=== PATIENT | female | born 1945 | race Caucasian/White ===

== ENCOUNTER → 2017-10-02 07:49 | Outpatient (CLI) | payer MEDICARE, OTHER, SELFPAY ==
--- NOTE | 2017-10-02 10:57 | NEURO ---
NCS and/or EMG Patient Report Ordering Doctor: Subha Patrick DATE OF SERVICE: 10/02/17 This is a bilateral lower extremity nerve conduction study performed on this 72-year-old female with a history of diabetes which she says is currently well controlled. She has had symptoms in her feet bilaterally for 4 years described as swelling and numbness on the soles of her feet with abnormal sensations on the balls of her feet. On examination she has mild edema as well as triple erythematous patches on her skin bilaterally in her lower extremities. Bilateral lower extremity sensory and motor nerve conduction study is performed. The sural sensory responses are relatively normal however all of the motor responses show severe reduction in conduction velocities, reduction in amplitude and prolonged distal latencies. Tibial and common peroneal F waves are prolonged bilaterally and H reflex response amplitude is reduced bilaterally consistent with peripheral neuropathy. Impression this is an abnormal nerve conduction study of the bilateral lower extremities consistent with severe peripheral neuropathy likely due to the patient's diabetes. Due to the patient's skin issues, EMG testing was deferred due to risk of infection.
--- NOTE | 2017-10-02 11:00 | NEURO_ITS ---
NCS and/or EMG Patient Report Ordering Doctor: Subha Patrick DATE OF SERVICE: 10/02/17 This is a bilateral lower extremity nerve conduction study performed on this 72- year-old female with a history of diabetes which she says is currently well controlled. She has had symptoms in her feet bilaterally for 4 years described as swelling and numbness on the soles of her feet with abnormal sensations on the balls of her feet. On examination she has mild edema as well as triple erythematous patches on her skin bilaterally in her lower extremities. Bilateral lower extremity sensory and motor nerve conduction study is performed. The sural sensory responses are relatively normal however all of the motor responses show severe reduction in conduction velocities, reduction in amplitude and prolonged distal latencies. Tibial and common peroneal F waves are prolonged bilaterally and H reflex response amplitude is reduced bilaterally consistent with peripheral neuropathy. Impression this is an abnormal nerve conduction study of the bilateral lower extremities consistent with severe peripheral neuropathy likely due to the patient's diabetes. Due to the patient's skin issues, EMG testing was deferred due to risk of infection.
== END ==
PROVIDERS: Family Provider Family Medicine Geriatric Medicine; PCP Family Medicine Geriatric Medicine; Visit Provider Podiatrist
DX: E11.40 Type 2 diabetes mellitus with diabetic neuropathy, unspecified (principal); M54.10 Radiculopathy, site unspecified
CPT/HCPCS: 95911

== ENCOUNTER → 2017-10-11 09:06 | Outpatient (CLI) | payer MEDICARE, OTHER, SELFPAY ==
[2017-10-11 12:31] LABS: Absolute Lymphocyte Count 1.41 X10^3/ul (0.83-4.51); Absolute Neutrophil Count 4.4 X10^3/uL (2.0-7.7); Basophil# 0.03 X10^3/uL; Basophil% 0.5 % (0-1); Eosinophil# 0.07 X10^3/uL; Eosinophils% 1.1 % (0-5); Hematocrit 38.3 % (37-47); Hemoglobin 12.4 g/dl (12.0-15.0); Lymphocyte # 1.41 X10^3/ul (4.0); Lymphocyte % 22.4 % (19-41); Mean Corp Hgb Conc 32.4 g/gl (32-36); Mean Corpuscular Hgb 27.3 pg (27.0-32.0); Mean Corpuscular Volume 84.2 fL (81-99); Mean Platelet Vol. 9.5 fl (6.2-12.0); Monocyte# 0.37 X10^3/uL; Monocyte% 5.9 % (0-10); Neutrophil % 69.9 % (47-70); Platelet Count 269 K/mm3 (150-450); RBC Distribution Width CV 14.9 % (11.6-14.6); RBC Distribution Width SD 44.6 fl (35.1-43.9); Red Blood Count 4.55 M/mm3 (4.2-5.4); White Blood Count 6.3 K/mm3 (4.4-11.0)
[2017-10-11 12:37] LABS: POSITIVE COUNT NO; POSITIVE DIFFERENTIAL NO; POSITIVE MORPHOLOGY NO
[2017-10-11 12:57] LABS: AST(SGOT) 15 U/L (15-37); Alanine Aminotransfer ALT/SGPT 16 U/L (13-56); Albumin, Serum 3.3 g/dL (3.2-5.0); Alkaline Phosphatase 97 U/L (45-117); Anion Gap 8 (5-15); BUN 14 mg/dL (7-18); Calcium,Total 8.7 mg/dL (8.5-10.1); Chloride 109 mmol/L (98-107); Creatinine, Serum 1.08 mg/dL (0.55-1.02); EST Glomerular Filtration Rate 53 mL/min (>60); Est Glom Filt Rate - Afr Amer 64 mL/min (>60); Globulin 3.4 g/dL (2.2-4.2); Glucose 119 mg/dL (74-106); Potassium 4.3 mmol/L (3.5-5.1); Protein, Total 6.7 g/dL (6.4-8.2); Sodium Level 142 mmol/L (136-145); Thyroid Stim Hormone (TSH) 0.96 uIU/mL (0.358-3.74)
[2017-10-12 09:41] LABS: Vitamin D,25 Hydroxy 31.8 ng/mL (29.95-100.01)
== END ==
PROVIDERS: Family Provider Family Medicine Geriatric Medicine; PCP Family Medicine Geriatric Medicine; Visit Provider Family Medicine Geriatric Medicine
DX: I10 Essential (primary) hypertension (principal); E55.9 Vitamin D deficiency, unspecified; E11.9 Type 2 diabetes mellitus without complications
CPT/HCPCS: 36415; 80053; 82306; 84443; 85025

== ENCOUNTER → 2017-11-20 10:07 | Outpatient (CLI) | payer MEDICARE, OTHER, SELFPAY ==
--- NOTE | 2017-11-20 10:14 | BD_ITS ---
STUDY: DUAL ENERGY X-RAY ABSORPTIOMETRY / DXA REASON FOR EXAM: Female, 72 years old. The patient is postmenopausal. Loss of height. TECHNIQUE: Bone Mineral Density (BMD) measurements of lumbar spine and bilateral hips were obtained. COMPARISON: Comparison is made with prior study dated August 16, 2006. FINDINGS: Lumbar Spine (L1-L4): g/cm2 (1.467) / T-score (2.4) / Z-score (4.1) Findings are suggestive of normal bone density with a low fracture risk. Left Femur Total: g/cm2 (0.893) / T-score (-0.9) / Z-score (0.6) Left Femoral Neck: g/cm2 (0.758) / T-score (-2.0) / Z-score (-0.3) Right Femur Total: g/cm2 (0.936) / T-score (-0.6) / Z-score (1.0) Right Femoral Neck: g/cm2 (0.783) / T-score (-1.8) / Z-score (-0.1) The T-Scores on the most recent prior examination were: Lumbar Spine (L1-L4): There has been improvement of bone density since the previous examination. Left Femur Total: which represents an improvement of 2.6%. Right Femur Total: which represents a worsening of 1.1%. BD/Dexa Bone Density Study IMPRESSION: The patient is considered osteopenic as outlined below according to World David Organization (WHO) criteria with a moderate fracture risk. There has been improvement of bone density since the previous examination. Reference Information: The T-score is the number of standard deviations above or below the standard which is normal for young adults at their peak bone mineral density. The World Health Organization (WHO) interprets the T-scores as follows: Above -1 Normal bone density Between -1 and -2.5 Osteopenia Equal to / or below -2.5 Osteoporosis As a practical clinical guideline, osteopenia may be graded as follows: Mild -1 through -1.5 Moderate -1.6 through -2.0 Severe -2.1 through -2.4 The Z-score is the number of standard deviations above or below age-matched controls. A Z-score of less than -1.5 would be considered abnormal. References: 1. NIH Osteoporosis and Related Bone Diseases http://www.osteo.org 2. International Society for Clinical Densitometry http://www.iscd.org 3. National Osteoporosis Foundation http://www.nof.org Electronically Signed: Akira Barth MD at 15:11 EDT Tel [phone], Service support ,
== END ==
PROVIDERS: Family Provider Family Medicine Geriatric Medicine; PCP Family Medicine Geriatric Medicine; Visit Provider Obstetrics & Gynecology
DX: M81.0 Age-related osteoporosis without current pathological fracture (principal)
CPT/HCPCS: 77080

== ENCOUNTER → 2017-12-03 09:15 | Outpatient (CLI) | payer MEDICARE, OTHER, SELFPAY ==
--- NOTE | 2017-12-03 09:15 | DT_ITS ---
This patient was seen during an EMR downtime December 03, 2017 - December 10, 2017. This patient may have a combination of paper and electronic documentation or all paper documentation. All documentation is viewable within the e-chart portion of [employer] for each patient visit.
--- NOTE | 2017-12-03 09:40 | BI_ITS ---
MAMMOGRAPHY - BILATERAL SCREENING REASON FOR EXAM: Female, 72 years old. Routine annual screening examination. PERTINENT HISTORY: NO FAM HX LT BREAST BX 20+YRS AGO TECHNIQUE: Digital bilateral breast shyann (3D mammographic acquisition) in the CC and MLO projections. 2-D mediolateral oblique (MLO) and craniocaudad (CC) views of both breasts were obtained. CAD: Full Field Digital Mammography with Computer Added Detection was performed. COMPARISON: 11/02/2016 and 05/26/2015 FINDINGS: Breast Composition: The breasts are heterogeneously dense, which may obscure small masses. There are no dominant masses or suspicious calcifications. No other significant abnormalities are identified. BI/SCREENING MAMM (CAD), BILAT IMPRESSION: Stable bilateral screening mammogram. Yearly follow-up mammogram recommended. (A) ASSESSMENT CATEGORY: BIRADS Category 2: Benign. A letter regarding these results will be sent to the patient by the facility within 30 days. Approximately 10% of breast cancers are not detected by mammography. A normal mammogram should not delay biopsy of a clinically suspicious abnormality. [id number] Electronically Signed: César Rubio MD at 13:05 EDT Tel , Service support ,
== END ==
PROVIDERS: Family Provider Family Medicine Geriatric Medicine; PCP Family Medicine Geriatric Medicine; Visit Provider Obstetrics & Gynecology
DX: Z12.31 Encounter for screening mammogram for malignant neoplasm of breast (principal); M81.0 Age-related osteoporosis without current pathological fracture
CPT/HCPCS: 77063; 77067

== ENCOUNTER → 2018-05-15 09:11 | Outpatient (CLI) | payer MEDICARE, OTHER, SELFPAY ==
[2018-05-15 12:44] LABS: Absolute Lymphocyte Count 1.21 X10^3/ul (0.83-4.51); Absolute Neutrophil Count 5.2 X10^3/uL (2.0-7.7); Basophil# 0.02 X10^3/uL; Basophil% 0.3 % (0-1); Eosinophil# 0.04 X10^3/uL; Eosinophils% 0.6 % (0-5); Hematocrit 38.6 % (37-47); Hemoglobin 12.3 g/dl (12.0-15.0); Lymphocyte # 1.21 X10^3/ul (4.0); Lymphocyte % 17.8 % (19-41); Mean Corp Hgb Conc 31.9 g/gl (32-36); Mean Corpuscular Hgb 26.3 pg (27.0-32.0); Mean Corpuscular Volume 82.7 fL (81-99); Mean Platelet Vol. 9.6 fl (6.2-12.0); Monocyte# 0.36 X10^3/uL; Monocyte% 5.3 % (0-10); Neutrophil # 5.16 X10^3/uL (2.7-7.7); Neutrophil % 75.9 % (47-70); Platelet Count 275 K/mm3 (150-450); RBC Distribution Width CV 14.8 % (11.6-14.6); RBC Distribution Width SD 44.1 fl (35.1-43.9); Red Blood Count 4.67 M/mm3 (4.2-5.4); White Blood Count 6.8 K/mm3 (4.4-11.0)
[2018-05-15 12:51] LABS: POSITIVE COUNT NO; POSITIVE DIFFERENTIAL NO; POSITIVE MORPHOLOGY NO
[2018-05-15 12:56] LABS: Vitamin D,25 Hydroxy 27.4 ng/mL (29.95-100.01)
[2018-05-15 13:09] LABS: ALB/GLOB Ratio 0.9 RATIO (0.9-2.4); AST(SGOT) 15 U/L (15-37); Alanine Aminotransfer ALT/SGPT 20 U/L (13-56); Albumin, Serum 3.3 g/dL (3.2-5.0); Alkaline Phosphatase 125 U/L (45-117); Anion Gap 11 (5-15); BUN 14 mg/dL (7-18); Chloride 105 mmol/L (98-107); Creatinine, Serum 1.08 mg/dL (0.55-1.02); EST Glomerular Filtration Rate 53 mL/min (>60); Est Glom Filt Rate - Afr Amer 64 mL/min (>60); Globulin 3.8 g/dL (2.2-4.2); Glucose 191 mg/dL (74-106); Potassium 4.1 mmol/L (3.5-5.1); Protein, Total 7.1 g/dL (6.4-8.2); Sodium Level 140 mmol/L (136-145); Thyroid Stim Hormone (TSH) 1.68 uIU/mL (0.358-3.74)
== END ==
PROVIDERS: Family Provider Family Medicine Geriatric Medicine; PCP Family Medicine Geriatric Medicine; Visit Provider Family Medicine Geriatric Medicine
DX: E11.9 Type 2 diabetes mellitus without complications (principal); E55.9 Vitamin D deficiency, unspecified; I10 Essential (primary) hypertension
CPT/HCPCS: 36415; 80053; 82306; 84443; 85025

== ENCOUNTER → 2018-11-13 | Outpatient (CLI) | payer MEDICARE, OTHER, SELFPAY ==
[2018-11-13 13:32] LABS: Absolute Lymphocyte Count 1.13 X10^3/ul (0.83-4.51); Absolute Neutrophil Count 4.6 X10^3/uL (2.0-7.7); Basophil# 0.02 X10^3/uL; Basophil% 0.3 % (0-1); Eosinophil# 0.06 X10^3/uL; Hematocrit 38.7 % (37-47); Hemoglobin 12.5 g/dl (12.0-15.0); Lymphocyte # 1.13 X10^3/ul (4.0); Lymphocyte % 18.3 % (19-41); Mean Corp Hgb Conc 32.3 g/gl (32-36); Mean Corpuscular Hgb 26.9 pg (27.0-32.0); Mean Corpuscular Volume 83.2 fL (81-99); Mean Platelet Vol. 9.7 fl (6.2-12.0); Monocyte# 0.35 X10^3/uL; Monocyte% 5.7 % (0-10); Neutrophil % 74.4 % (47-70); POSITIVE COUNT NO; POSITIVE DIFFERENTIAL NO; POSITIVE MORPHOLOGY NO; Platelet Count 284 K/mm3 (150-450); RBC Distribution Width CV 14.5 % (11.6-14.6); RBC Distribution Width SD 43.3 fl (35.1-43.9); Red Blood Count 4.65 M/mm3 (4.2-5.4); White Blood Count 6.2 K/mm3 (4.4-11.0)
[2018-11-13 13:57] LABS: ALB/GLOB Ratio 0.9 RATIO (0.9-2.4); AST(SGOT) 14 U/L (15-37); Alanine Aminotransfer ALT/SGPT 18 U/L (13-56); Albumin, Serum 3.3 g/dL (3.2-5.0); Alkaline Phosphatase 106 U/L (45-117); Anion Gap 7 (5-15); BUN 16 mg/dL (7-18); Calcium,Total 8.3 mg/dL (8.5-10.1); Chloride 107 mmol/L (98-107); Creatinine, Serum 1.07 mg/dL (0.55-1.02); EST Glomerular Filtration Rate 54 mL/min (>60); Est Glom Filt Rate - Afr Amer 65 mL/min (>60); Globulin 3.5 g/dL (2.2-4.2); Glucose 208 mg/dL (74-106); Potassium 4.2 mmol/L (3.5-5.1); Protein, Total 6.8 g/dL (6.4-8.2); Sodium Level 137 mmol/L (136-145); Thyroid Stim Hormone (TSH) 0.99 uIU/mL (0.358-3.74)
== END | disposition home or self-care (01) ==
LOC: POLAB3 12:04
PROVIDERS: Family Provider Family Medicine Geriatric Medicine; PCP Family Medicine Geriatric Medicine; Visit Provider Family Medicine Geriatric Medicine
DX: E11.9 Type 2 diabetes mellitus without complications (principal); E55.9 Vitamin D deficiency, unspecified; I10 Essential (primary) hypertension
CPT/HCPCS: 36415; 80053; 82306; 84443; 85025

== ENCOUNTER → 2019-05-19 | Outpatient (CLI) | payer MEDICARE, OTHER, SELFPAY ==
[2019-05-19 10:15] LABS: Absolute Lymphocyte Count 1.14 X10^3/uL (0.83-4.51); Absolute Neutrophil Count 4.7 X10^3/uL (2.0-7.7); Basophil# 0.04 X10^3/uL; Basophil% 0.6 % (0-1); Eosinophil# 0.05 X10^3/uL; Eosinophils% 0.8 % (0-5); Hematocrit 37.7 % (37-47); Hemoglobin 12.1 g/dL (12.0-15.0); Lymphocyte # 1.14 X10^3/ul (4.0); Lymphocyte % 18.4 % (19-41); Mean Corp Hgb Conc 32.1 g/dL (32-36); Mean Corpuscular Hgb 26.8 pg (27.0-32.0); Mean Corpuscular Volume 83.6 fL (81-99); Mean Platelet Vol. 9.4 fl (6.2-12.0); Monocyte# 0.28 X10^3/uL; Monocyte% 4.5 % (0-10); NRBC Flagged by Analyzer 0 % (0-5); Neutrophil # 4.69 X10^3/uL (2.7-7.7); Neutrophil % 75.5 % (47-70); Platelet Count 269 K/mm3 (150-450); RBC Distribution Width CV 13.9 % (11.6-14.6); RBC Distribution Width SD 42.6 fl (35.1-43.9); Red Blood Count 4.51 M/mm3 (4.2-5.4); White Blood Count 6.2 K/mm3 (4.4-11.0)
[2019-05-19 10:37] LABS: ALB/GLOB Ratio 0.9 RATIO (0.9-2.4); AST(SGOT) 14 U/L (15-37); Alanine Aminotransfer ALT/SGPT 13 U/L (13-56); Albumin, Serum 3.4 g/dL (3.2-5.0); Alkaline Phosphatase 120 U/L (45-117); Anion Gap 9 (5-15); BUN 15 mg/dL (7-18); BUN/Creat Ratio 13.4 RATIO (10-20); Calcium,Total 8.9 mg/dL (8.5-10.1); Chloride 106 mmol/L (98-107); Creatinine, Serum 1.12 mg/dL (0.55-1.02); EST Glomerular Filtration Rate 51 mL/min (>60); Est Glom Filt Rate - Afr Amer 61 mL/min (>60); Globulin 3.8 g/dL (2.2-4.2); Glucose 165 mg/dL (74-106); Potassium 3.7 mmol/L (3.5-5.1); Protein, Total 7.2 g/dL (6.4-8.2); Sodium Level 140 mmol/L (136-145); Thyroid Stim Hormone (TSH) 1.85 uIU/mL (0.358-3.74)
[2019-05-19 10:52] LABS: Vitamin D,25 Hydroxy 40.8 ng/mL (29.95-100.01)
== END | disposition home or self-care (01) ==
LOC: POLAB3 09:13
PROVIDERS: Family Provider Family Medicine Geriatric Medicine; PCP Family Medicine Geriatric Medicine; Visit Provider Family Medicine Geriatric Medicine
DX: E11.9 Type 2 diabetes mellitus without complications (principal); E55.9 Vitamin D deficiency, unspecified; I10 Essential (primary) hypertension
CPT/HCPCS: 36415; 80053; 82306; 84443; 85025

== ENCOUNTER → 2019-11-19 09:18 | Outpatient (CLI) | payer MEDICARE, OTHER, SELFPAY ==
[2019-11-19 12:43] LABS: Absolute Neutrophil Count 4.7 X10^3/uL (2.0-7.7); Basophil# 0.04 X10^3/uL; Basophil% 0.6 % (0-1); Eosinophil# 0.06 X10^3/uL; Eosinophils% 0.9 % (0-5); Hematocrit 38.6 % (37-47); Mean Corp Hgb Conc 31.1 g/dL (32-36); Mean Corpuscular Hgb 25.9 pg (27.0-32.0); Mean Corpuscular Volume 83.4 fL (81-99); Mean Platelet Vol. 9.4 fl (6.2-12.0); Monocyte# 0.34 X10^3/uL; Monocyte% 5.2 % (0-10); NRBC Flagged by Analyzer 0 % (0-5); Neutrophil # 4.74 X10^3/uL (2.7-7.7); Neutrophil % 73.1 % (47-70); Platelet Count 272 K/mm3 (150-450); RBC Distribution Width CV 15.1 % (11.6-14.6); RBC Distribution Width SD 45.8 fl (35.1-43.9); Red Blood Count 4.63 M/mm3 (4.2-5.4); White Blood Count 6.5 K/mm3 (4.4-11.0)
[2019-11-19 12:55] LABS: Vitamin D,25 Hydroxy 27.2 ng/mL
[2019-11-19 13:14] LABS: ALB/GLOB Ratio 0.9 RATIO (0.9-2.4); AST(SGOT) 18 U/L (15-37); Alanine Aminotransfer ALT/SGPT 17 U/L (13-56); Albumin, Serum 3.3 g/dL (3.2-5.0); Alkaline Phosphatase 117 U/L (45-117); Anion Gap 8 (5-15); BUN 16 mg/dL (7-18); BUN/Creat Ratio 14.4 RATIO (10-20); Chloride 108 mmol/L (98-107); Creatinine, Serum 1.11 mg/dL (0.55-1.02); EST Glomerular Filtration Rate 51 mL/min (>60); Est Glom Filt Rate - Afr Amer 62 mL/min (>60); Globulin 3.7 g/dL (2.2-4.2); Glucose 153 mg/dL (74-106); Potassium 3.9 mmol/L (3.5-5.1); Sodium Level 140 mmol/L (136-145); Thyroid Stim Hormone (TSH) 1.92 uIU/mL (0.358-3.74)
== END ==
PROVIDERS: PCP Family Medicine Geriatric Medicine; Visit Provider Family Medicine Geriatric Medicine
DX: E11.9 Type 2 diabetes mellitus without complications (principal); E55.9 Vitamin D deficiency, unspecified; I10 Essential (primary) hypertension
CPT/HCPCS: 36415; 80053; 82306; 84443; 85025

== ENCOUNTER → 2020-02-24 | Outpatient (CLI) | payer MEDICARE, OTHER, SELFPAY ==
--- NOTE | 2020-02-24 10:06 | BI_ITS ---
MAMMOGRAPHY - BILATERAL SCREENING REASON FOR EXAM: Female, 74 years old. Routine annual screening examination. PERTINENT HISTORY: Grandmother with breast cancer. Remote left breast biopsy. TECHNIQUE: Digital bilateral breast carole (3D mammographic acquisition) in the CC and MLO projections. 2-D mediolateral oblique (MLO) and craniocaudad (CC) views of both breasts were obtained. CAD: Full Field Digital Mammography with Computer Added Detection was performed. COMPARISON: Comparison is made with prior examination dated 12/03/2017 and 11/02/2016. FINDINGS: Breast Composition: The breasts are heterogeneously dense, which may obscure small masses. There are no dominant masses or suspicious calcifications. Stable small benign-appearing bilateral axillary lymph nodes. No other significant abnormalities are identified. There has been no significant change since the prior study. BI/SCREEN MAMM (CAD) W/CAROLE BILAT IMPRESSION: Stable bilateral screening mammogram. Yearly follow-up mammogram recommended. (A) ASSESSMENT CATEGORY: BIRADS Category 2: Benign. A letter regarding these results will be sent to the patient by the facility within 30 days. Approximately 10% of breast cancers are not detected by mammography. A normal mammogram should not delay biopsy of a clinically suspicious abnormality. [id number] Electronically Signed: Akira Barth, at 12:15 EDT , Service support ,
== END | disposition home or self-care (01) ==
LOC: OPBI 10:04
PROVIDERS: PCP Family Medicine Geriatric Medicine; Referring Provider Obstetrics & Gynecology; Visit Provider Obstetrics & Gynecology
DX: Z12.31 Encounter for screening mammogram for malignant neoplasm of breast (principal)
CPT/HCPCS: 77063; 77067

== ENCOUNTER → 2020-05-20 09:39 | Outpatient (CLI) | payer MEDICARE, OTHER, SELFPAY ==
[2020-03-30 14:44] VITALS: BMI 33.2
[2020-05-20 12:40] LABS: Basophil# 0.05 X10^3/uL; Basophil% 0.7 % (0-1); Eosinophil# 0.09 X10^3/uL; Eosinophils% 1.3 % (0-5); Hemoglobin 12.1 g/dL (12.0-15.0); Mean Corpuscular Hgb 25.7 pg (27.0-32.0); Mean Platelet Vol. 9.2 fl (6.2-12.0); Monocyte# 0.36 X10^3/uL; Monocyte% 5.3 % (0-10); NRBC Flagged by Analyzer 0 % (0-5); Neutrophil # 5.01 X10^3/uL (2.7-7.7); Neutrophil % 73.4 % (47-70); Platelet Count 297 K/mm3 (150-450); RBC Distribution Width CV 14.7 % (11.6-14.6); RBC Distribution Width SD 44.2 fl (35.1-43.9); White Blood Count 6.8 K/mm3 (4.4-11.0)
[2020-05-20 13:00] LABS: Vitamin D,25 Hydroxy 24.5 ng/mL
[2020-05-20 13:11] LABS: ALB/GLOB Ratio 0.9 RATIO (0.9-2.4); AST(SGOT) 11 U/L (15-37); Alanine Aminotransfer ALT/SGPT 17 U/L (13-56); Albumin, Serum 3.5 g/dL (3.2-5.0); Alkaline Phosphatase 95 U/L (45-117); Anion Gap 7 (5-15); BUN 25 mg/dL (7-18); BUN/Creat Ratio 21.9 RATIO (10-20); Chloride 109 mmol/L (98-107); Creatinine, Serum 1.14 mg/dL (0.55-1.02); EST Glomerular Filtration Rate 50 mL/min (>60); Est Glom Filt Rate - Afr Amer 60 mL/min (>60); Globulin 3.8 g/dL (2.2-4.2); Glucose 134 mg/dL (74-106); Protein, Total 7.3 g/dL (6.4-8.2); Sodium Level 139 mmol/L (136-145); Thyroid Stim Hormone (TSH) 1.53 uIU/mL (0.358-3.74)
== END ==
PROVIDERS: PCP Family Medicine Geriatric Medicine; Visit Provider Family Medicine Geriatric Medicine
DX: E11.9 Type 2 diabetes mellitus without complications (principal); E55.9 Vitamin D deficiency, unspecified; I10 Essential (primary) hypertension
CPT/HCPCS: 36415; 80053; 82306; 84443; 85025

== ENCOUNTER → 2020-11-18 09:47 | Outpatient (CLI) | payer MEDICARE, OTHER, SELFPAY ==
[2020-03-30 14:44] VITALS: BMI 33.2
[2020-11-18 12:33] LABS: Absolute Lymphocyte Count 1.32 X10^3/uL (0.83-4.51); Absolute Neutrophil Count 5.2 X10^3/uL (2.0-7.7); Basophil# 0.04 X10^3/uL; Basophil% 0.6 % (0-1); Eosinophil# 0.14 X10^3/uL; Hematocrit 38.4 % (37-47); Hemoglobin 11.8 g/dL (12.0-15.0); Lymphocyte # 1.32 X10^3/ul (0.83-4.51); Lymphocyte % 18.7 % (19-41); Mean Corp Hgb Conc 30.7 g/dL (32-36); Mean Corpuscular Hgb 25.1 pg (27.0-32.0); Mean Corpuscular Volume 81.5 fL (81-99); Mean Platelet Vol. 9.3 fl (6.2-12.0); Monocyte% 4.3 % (0-10); NRBC Flagged by Analyzer 0 % (0-5); Neutrophil # 5.23 X10^3/uL (2.7-7.7); Neutrophil % 74.1 % (47-70); Platelet Count 277 K/mm3 (150-450); RBC Distribution Width SD 41.2 fl (35.1-43.9); Red Blood Count 4.71 M/mm3 (4.2-5.4); White Blood Count 7.1 K/mm3 (4.4-11.0)
[2020-11-18 12:49] LABS: Vitamin D,25 Hydroxy 37.5 ng/mL
[2020-11-18 13:01] LABS: ALB/GLOB Ratio 0.9 RATIO (0.9-2.4); AST(SGOT) 17 U/L (15-37); Alanine Aminotransfer ALT/SGPT 18 U/L (13-56); Albumin, Serum 3.5 g/dL (3.2-5.0); Alkaline Phosphatase 97 U/L (45-117); Anion Gap 8 (5-15); BUN 23 mg/dL (7-18); BUN/Creat Ratio 19.7 RATIO (10-20); Calcium,Total 9.1 mg/dL (8.5-10.1); Chloride 105 mmol/L (98-107); Creatinine, Serum 1.17 mg/dL (0.55-1.02); EST Glomerular Filtration Rate 48 mL/min (>60); Est Glom Filt Rate - Afr Amer 58 mL/min (>60); Globulin 3.8 g/dL (2.2-4.2); Glucose 178 mg/dL (74-106); Potassium 4.1 mmol/L (3.5-5.1); Protein, Total 7.3 g/dL (6.4-8.2); Sodium Level 138 mmol/L (136-145); Thyroid Stim Hormone (TSH) 1.42 uIU/mL (0.358-3.74)
== END ==
PROVIDERS: PCP Family Medicine Geriatric Medicine; Visit Provider Family Medicine Geriatric Medicine
DX: E11.9 Type 2 diabetes mellitus without complications (principal); E55.9 Vitamin D deficiency, unspecified; I10 Essential (primary) hypertension
CPT/HCPCS: 36415; 80053; 82306; 84443; 85025

== ENCOUNTER → 2021-02-24 09:48 | Outpatient (CLI) | payer MEDICARE, OTHER, SELFPAY ==
[2020-03-30 14:44] VITALS: BMI 33.2
--- NOTE | 2021-02-24 09:53 | BI_ITS ---
MAMMOGRAPHY - BILATERAL SCREENING REASON FOR EXAM: Female, 75 years old. Routine annual screening examination. PERTINENT HISTORY: Grandmother with breast cancer. Remote left excisional breast biopsy. TECHNIQUE: Digital bilateral breast carole (3D mammographic acquisition) in the CC and MLO projections. 2-D mediolateral oblique (MLO) and craniocaudad (CC) views of both breasts were obtained. CAD: Full Field Digital Mammography with Computer Added Detection was performed. COMPARISON: Comparison is made with prior study 02/24/2020 and 12/03/2017. FINDINGS: Breast Composition: The breasts are heterogeneously dense, which may obscure small masses. There are no dominant masses or suspicious calcifications. Stable benign appearing bilateral axillary No other significant abnormalities are identified. There has been no significant change since the prior study. BI/SCRN MAMM (CAD)W/CAROLE BILAT IMPRESSION: Stable bilateral screening mammogram. Yearly follow-up mammogram recommended. (A) ASSESSMENT CATEGORY: BIRADS Category 2: Benign. A letter regarding these results will be sent to the patient by the facility within 30 days. Approximately 10% of breast cancers are not detected by mammography. A normal mammogram should not delay biopsy of a clinically suspicious abnormality. [id number] Electronically Signed: Akira Barth MD at 10:51 EDT , Service support ,
== END ==
PROVIDERS: PCP Family Medicine Geriatric Medicine; Visit Provider Obstetrics & Gynecology
DX: Z12.31 Encounter for screening mammogram for malignant neoplasm of breast (principal)
CPT/HCPCS: 77063; 77067

== ENCOUNTER → 2021-05-23 12:02 | Outpatient (CLI) | payer MEDICARE, OTHER, SELFPAY ==
[2021-05-23 12:40] LABS: Absolute Lymphocyte Count 1.28 X10^3/uL (0.83-4.51); Absolute Neutrophil Count 4.6 X10^3/uL (2.0-7.7); Basophil# 0.06 X10^3/uL; Basophil% 0.9 % (0-1); Eosinophil# 0.06 X10^3/uL; Eosinophils% 0.9 % (0-5); Hematocrit 37.5 % (37-47); Hemoglobin 11.8 g/dL (12.0-15.0); Lymphocyte # 1.28 X10^3/ul (0.83-4.51); Lymphocyte % 19.9 % (19-41); Mean Corp Hgb Conc 31.5 g/dL (32-36); Mean Corpuscular Hgb 25.8 pg (27.0-32.0); Mean Corpuscular Volume 81.9 fL (81-99); Mean Platelet Vol. 9.3 fl (6.2-12.0); Monocyte# 0.37 X10^3/uL; Monocyte% 5.7 % (0-10); NRBC Flagged by Analyzer 0 % (0-5); Neutrophil # 4.64 X10^3/uL (2.7-7.7); Neutrophil % 72.1 % (47-70); Platelet Count 276 K/mm3 (150-450); RBC Distribution Width CV 14.8 % (11.6-14.6); RBC Distribution Width SD 43.8 fl (35.1-43.9); Red Blood Count 4.58 M/mm3 (4.2-5.4); White Blood Count 6.4 K/mm3 (4.4-11.0)
[2021-05-23 12:54] LABS: Vitamin D,25 Hydroxy 30.8 ng/mL
[2021-05-23 13:03] LABS: ALB/GLOB Ratio 0.8 RATIO (0.9-2.4); AST(SGOT) 12 U/L (15-37); Alanine Aminotransfer ALT/SGPT 15 U/L (13-56); Albumin, Serum 3.2 g/dL (3.2-5.0); Alkaline Phosphatase 86 U/L (45-117); Anion Gap 6 (5-15); BUN 26 mg/dL (7-18); Chloride 108 mmol/L (98-107); Creatinine, Serum 1.13 mg/dL (0.55-1.02); EST Glomerular Filtration Rate 50 mL/min (>60); Est Glom Filt Rate - Afr Amer 60 mL/min (>60); Globulin 3.9 g/dL (2.2-4.2); Glucose 143 mg/dL (74-106); Potassium 4.2 mmol/L (3.5-5.1); Protein, Total 7.1 g/dL (6.4-8.2); Sodium Level 139 mmol/L (136-145); Thyroid Stim Hormone (TSH) 1.52 uIU/mL (0.358-3.74)
== END ==
PROVIDERS: PCP Family Medicine Geriatric Medicine; Visit Provider Family Medicine Geriatric Medicine
DX: E11.9 Type 2 diabetes mellitus without complications (principal); E55.9 Vitamin D deficiency, unspecified; I10 Essential (primary) hypertension
CPT/HCPCS: 36415; 80053; 82306; 84443; 85025

== ENCOUNTER 2021-08-10 10:16 | Outpatient (CLI) | payer MEDICARE, OTHER, SELFPAY ==
--- NOTE | 2021-08-10 10:19 | US_ITS ---
EXAM: US RETROPERITONEAL LIMITED, RENAL : 1945 CLINICAL INDICATION: CKD3 TECHNIQUE: Limited grayscale and color Doppler sonographic evaluation of the retroperitoneum was performed. This report was created using [employer] technology. COMPARISON: None. FINDINGS: RIGHT KIDNEY: The right kidney measures 10.1 x 4.2 x 4.2 cm. The right renal cortex measures 1.1 cm. There is mild hydronephrosis present. No shadowing calculus. No perinephric collection is demonstrated. LEFT KIDNEY: Left kidney measures 9.8 x 4.9 x 3.8 cm. On the left renal cortex measures 1.3 cm. BLADDER: The bladder measures 5.1 x 3.3 x 5.4 cm for a volume of 47 mL. The bladder wall measures 4 mm. US/Kidney and Bladder IMPRESSION: Mild left-sided hydronephrosis. No other abnormalities are identified. at 0237 Reported and signed by: Damaso Blanchard MD Electronically Signed: Damaso Blanchard MD at 2:36 EST ,
== END 2021-08-10 23:59 | disposition home or self-care (01) ==
LOC: US 10:18
PROVIDERS: PCP Family Medicine Geriatric Medicine; Referring Provider Internal Medicine Nephrology; Visit Provider Internal Medicine Nephrology
DX: N18.31 Chronic kidney disease, stage 3a (principal)
CPT/HCPCS: 76770

== ENCOUNTER 2021-09-06 10:29 | Outpatient (CLI) | payer MEDICARE, OTHER, SELFPAY ==
[2021-09-06 10:33] LABS: Mucous, Urine 0 SEEN /hpf (<or=2+); Red Blood Cells-Urine 0 SEEN /hpf (0-5)
[2021-09-06 12:26] LABS: Color, Urine Yellow (Yellow); Glucose, Dipstick Normal (Normal); Ketone-Dipstick Negative (Negative); Leukocyte Esterase-Dipstick 100 /ul (Negative); Nitrite-Dipstick Negative (Negative); Occult Blood-Urine Negative /ul (Negative); Protein-Dipstick Negative (Negative); Urine Bilirubin Dipstick Negative (Negative); Urine Clarity Sl. Cloudy (Clear); Urine Urobilinogen Normal (Normal)
[2021-09-06 12:37] LABS: Bacteria 2+ /hpf (None Seen); Squamous Epithelial Cells - UA 5-10 SEEN /hpf (5-10); White Blood Cells 10-25 SEEN /hpf (0-5)
[2021-09-06 12:41] LABS: Protein, Urine (Random) 12.2 mg/dL (<11.9); Protein:Creat Ratio 161 mg/g CRE (0-200)
[2021-09-06 12:49] LABS: Albumin, Serum 3.5 g/dL (3.2-5.0); BUN 23 mg/dL (7-18); BUN/Creat Ratio 16.2 RATIO (10-20); Calcium,Total 9.2 mg/dL (8.5-10.1); Chloride 106 mmol/L (98-107); Creatinine, Serum 1.42 mg/dL (0.55-1.02); EST Glomerular Filtration Rate 38 mL/min (>60); Est Glom Filt Rate - Afr Amer 46 mL/min (>60); Glucose 254 mg/dL (74-106); Phosphorus 2.2 mg/dL (2.5-4.9); Potassium 4.1 mmol/L (3.5-5.1); Sodium Level 137 mmol/L (136-145)
== END 2021-09-06 23:59 | disposition home or self-care (01) ==
LOC: LAB.FUTURE 10:30
PROVIDERS: PCP Family Medicine Geriatric Medicine; Visit Provider Internal Medicine Nephrology
DX: N18.31 Chronic kidney disease, stage 3a (principal)
CPT/HCPCS: 36415; 80069; 81001; 82570; 84156

== ENCOUNTER 2021-09-13 13:54 | Outpatient (CLI) | payer MEDICARE, OTHER, SELFPAY ==
[2021-09-13 17:26] LABS: Albumin, Serum 3.6 g/dL (3.2-5.0); BUN 16 mg/dL (7-18); BUN/Creat Ratio 13.1 RATIO (10-20); Calcium,Total 9.5 mg/dL (8.5-10.1); Chloride 107 mmol/L (98-107); Creatinine, Serum 1.22 mg/dL (0.55-1.02); EST Glomerular Filtration Rate 46 mL/min (>60); Est Glom Filt Rate - Afr Amer 55 mL/min (>60); Glucose 140 mg/dL (74-106); Phosphorus 2.9 mg/dL (2.5-4.9); Potassium 4.2 mmol/L (3.5-5.1); Sodium Level 139 mmol/L (136-145)
== END 2021-09-13 23:59 | disposition home or self-care (01) ==
PROVIDERS: PCP Family Medicine Geriatric Medicine; Visit Provider Internal Medicine Nephrology
DX: N17.9 Acute kidney failure, unspecified (principal)
CPT/HCPCS: 36415; 80069

== ENCOUNTER → 2021-11-21 | Outpatient (CLI) | payer MEDICARE, OTHER, SELFPAY ==
[2021-11-21 12:33] LABS: Absolute Lymphocyte Count 1.25 X10^3/uL (0.83-4.51); Absolute Neutrophil Count 4.2 X10^3/uL (2.0-7.7); Basophil# 0.06 X10^3/uL; Eosinophil# 0.39 X10^3/uL; Eosinophils% 6.3 % (0-5); Hemoglobin 11.5 g/dL (12.0-15.0); Lymphocyte # 1.25 X10^3/ul (0.83-4.51); Lymphocyte % 20.2 % (19-41); Mean Corp Hgb Conc 31.1 g/dL (32-36); Mean Corpuscular Volume 83.5 fL (81-99); Mean Platelet Vol. 9.3 fl (6.2-12.0); Monocyte# 0.32 X10^3/uL; Monocyte% 5.2 % (0-10); NRBC Flagged by Analyzer 0 % (0-5); Neutrophil # 4.15 X10^3/uL (2.7-7.7); Neutrophil % 67.1 % (47-70); Platelet Count 255 K/mm3 (150-450); RBC Distribution Width SD 45.8 fl (35.1-43.9); Red Blood Count 4.43 M/mm3 (4.2-5.4); White Blood Count 6.2 K/mm3 (4.4-11.0)
[2021-11-21 12:43] LABS: Vitamin D,25 Hydroxy 36.5 ng/mL
[2021-11-21 12:49] LABS: ALB/GLOB Ratio 0.9 RATIO (0.9-2.4); AST(SGOT) 17 U/L (15-37); Alanine Aminotransfer ALT/SGPT 19 U/L (13-56); Albumin, Serum 3.3 g/dL (3.2-5.0); Alkaline Phosphatase 86 U/L (45-117); Anion Gap 6 (5-15); BUN 20 mg/dL (7-18); BUN/Creat Ratio 17.1 RATIO (10-20); Calcium,Total 8.9 mg/dL (8.5-10.1); Chloride 106 mmol/L (98-107); Creatinine, Serum 1.17 mg/dL (0.55-1.02); EST Glomerular Filtration Rate 48 mL/min (>60); Est Glom Filt Rate - Afr Amer 58 mL/min (>60); Globulin 3.6 g/dL (2.2-4.2); Glucose 179 mg/dL (74-106); Potassium 4.1 mmol/L (3.5-5.1); Protein, Total 6.9 g/dL (6.4-8.2); Sodium Level 137 mmol/L (136-145); Thyroid Stim Hormone (TSH) 1.59 uIU/mL (0.358-3.74)
== END | disposition home or self-care (01) ==
LOC: POLAB3 11:04
PROVIDERS: PCP Family Medicine Geriatric Medicine; Visit Provider Family Medicine Geriatric Medicine
DX: I10 Essential (primary) hypertension (principal); E11.9 Type 2 diabetes mellitus without complications; E55.9 Vitamin D deficiency, unspecified
CPT/HCPCS: 36415; 80053; 82306; 84443; 85025

== ENCOUNTER → 2022-05-24 | Outpatient (CLI) | payer MEDICARE, OTHER, SELFPAY ==
[2022-05-24 12:55] LABS: Absolute Lymphocyte Count 1.43 X10^3/uL (0.83-4.51); Absolute Neutrophil Count 4.4 X10^3/uL (2.0-7.7); Basophil# 0.05 X10^3/uL; Basophil% 0.8 % (0-1); Eosinophil# 0.18 X10^3/uL; Eosinophils% 2.8 % (0-5); Hematocrit 38.7 % (37-47); Hemoglobin 12.4 g/dL (12.0-15.0); Lymphocyte # 1.43 X10^3/ul (0.83-4.51); Lymphocyte % 22.3 % (19-41); Mean Corpuscular Hgb 27.1 pg (27.0-32.0); Mean Corpuscular Volume 84.5 fL (81-99); Mean Platelet Vol. 9.7 fl (6.2-12.0); Monocyte# 0.36 X10^3/uL; Monocyte% 5.6 % (0-10); NRBC Flagged by Analyzer 0.3 % (0-5); Neutrophil # 4.37 X10^3/uL (2.7-7.7); Platelet Count 234 K/mm3 (150-450); RBC Distribution Width CV 15.2 % (11.6-14.6); RBC Distribution Width SD 46.3 fl (35.1-43.9); Red Blood Count 4.58 M/mm3 (4.2-5.4); White Blood Count 6.4 K/mm3 (4.4-11.0)
[2022-05-24 13:20] LABS: Vitamin D,25 Hydroxy 37.5 ng/mL
[2022-05-24 13:34] LABS: ALB/GLOB Ratio 0.9 RATIO (0.9-2.4); AST(SGOT) 14 U/L (15-37); Alanine Aminotransfer ALT/SGPT 16 U/L (13-56); Albumin, Serum 3.4 g/dL (3.2-5.0); Alkaline Phosphatase 90 U/L (45-117); Anion Gap 8 (5-15); BUN 20 mg/dL (7-18); BUN/Creat Ratio 18.7 RATIO (10-20); Chloride 106 mmol/L (98-107); Creatinine, Serum 1.07 mg/dL (0.55-1.02); EST Glomerular Filtration Rate 53 mL/min (>60); Est Glom Filt Rate - Afr Amer 64 mL/min (>60); Globulin 3.8 g/dL (2.2-4.2); Glucose 155 mg/dL (74-106); Potassium 3.9 mmol/L (3.5-5.1); Protein, Total 7.2 g/dL (6.4-8.2); Sodium Level 141 mmol/L (136-145); Thyroid Stim Hormone (TSH) 2.37 uIU/mL (0.358-3.74)
== END | disposition home or self-care (01) ==
LOC: POLAB3 09:07
PROVIDERS: PCP Family Medicine Geriatric Medicine; Visit Provider Family Medicine Geriatric Medicine
DX: E11.9 Type 2 diabetes mellitus without complications (principal); I10 Essential (primary) hypertension; E55.9 Vitamin D deficiency, unspecified
CPT/HCPCS: 36415; 80053; 82306; 84443; 85025

== ENCOUNTER → 2022-11-15 | Outpatient (CLI) | payer MEDICARE, OTHER, SELFPAY ==
[2022-11-15 10:42] LABS: Absolute Lymphocyte Count 1.42 X10^3/uL (0.83-4.51); Absolute Neutrophil Count 4.5 X10^3/uL (2.0-7.7); Basophil# 0.05 X10^3/uL; Basophil% 0.8 % (0-1); Eosinophils% 1.5 % (0-5); Hematocrit 40.9 % (37-47); Hemoglobin 13.1 g/dL (12.0-15.0); Lymphocyte # 1.42 X10^3/ul (0.83-4.51); Lymphocyte % 21.7 % (19-41); Mean Corpuscular Hgb 26.6 pg (27.0-32.0); Mean Corpuscular Volume 83.1 fL (81-99); Mean Platelet Vol. 9.5 fl (6.2-12.0); Monocyte% 6.1 % (0-10); NRBC Flagged by Analyzer 0 % (0-5); Neutrophil # 4.54 X10^3/uL (2.7-7.7); Neutrophil % 69.6 % (47-70); Platelet Count 254 K/mm3 (150-450); RBC Distribution Width CV 14.4 % (11.6-14.6); RBC Distribution Width SD 43.4 fl (35.1-43.9); Red Blood Count 4.92 M/mm3 (4.2-5.4); White Blood Count 6.5 K/mm3 (4.4-11.0)
[2022-11-15 11:18] LABS: Vitamin D,25 Hydroxy 33.2 ng/mL
[2022-11-15 11:29] LABS: ALB/GLOB Ratio 0.9 RATIO (0.9-2.4); AST(SGOT) 20 U/L (15-37); Alanine Aminotransfer ALT/SGPT 17 U/L (13-56); Albumin, Serum 3.4 g/dL (3.2-5.0); Alkaline Phosphatase 108 U/L (45-117); Anion Gap 9 (5-15); BUN 23 mg/dL (7-18); BUN/Creat Ratio 20.2 RATIO (10-20); Calcium,Total 9.6 mg/dL (8.5-10.1); Chloride 109 mmol/L (98-107); Creatinine, Serum 1.14 mg/dL (0.55-1.02); EST Glomerular Filtration Rate 49 mL/min (>60); Est Glom Filt Rate - Afr Amer 60 mL/min (>60); Globulin 3.9 g/dL (2.2-4.2); Glucose 169 mg/dL (74-106); Protein, Total 7.3 g/dL (6.4-8.2); Sodium Level 140 mmol/L (136-145); Thyroid Stim Hormone (TSH) 2.11 uIU/mL (0.358-3.74)
== END | disposition home or self-care (01) ==
LOC: POLAB3 09:14
PROVIDERS: PCP Family Medicine Geriatric Medicine; Visit Provider Family Medicine Geriatric Medicine
DX: E11.65 Type 2 diabetes mellitus with hyperglycemia (principal); I10 Essential (primary) hypertension; E55.9 Vitamin D deficiency, unspecified
CPT/HCPCS: 36415; 80053; 82306; 84443; 85025

== ENCOUNTER → 2022-12-20 | Outpatient (CLI) | payer MEDICARE, OTHER, SELFPAY ==
--- NOTE | 2022-12-20 12:05 | RAD_ITS ---
INDICATION: Radiculopathy, lumbar region EXAMINATION/TECHNIQUE: X-RAY - XR Spine Lumbar 2 or 3 Views COMPARISON: None. FINDINGS: VERTEBRAE: 6 lumbar type vertebra with presumed lumbarization of S1. Levels numbered accordingly for purposes of this study. Marked levocurvature, with apex and chronic near right vertebral plana at L3. Mid lumbar right vertebral body bridging osteophytes. Grade 1 anterolisthesis L5 on S1 with grade 1 retrolisthesis L4 on L5 and L3 on L4.. Straightening of the upper lumbar lordosis. [] Multilevel moderate lower lumbar facet arthropathy DISCS: Diffuse disc height loss is prominent in the mid lumbar spine. INCLUDED ABDOMEN: Included bowel gas pattern is non-obstructive. RAD/Lumbar Spine 2 or 3 Views IMPRESSION: Presumed partial lumbarization of S1. Levels numbered accordingly. Near vertebral plana along the right aspect of L3 vertebral body with gross levocurvature. Multilevel likely degenerative listhesis in the mid to lower lumbar spine.] No radiographically apparent pars defect. CT could further evaluate as clinically indicated. Electronically Signed: Moris Castro MD at 10:17 EDT ,
== END | disposition home or self-care (01) ==
PROVIDERS: PCP Family Medicine Geriatric Medicine; Referring Provider Anesthesiology Pain Medicine; Visit Provider Anesthesiology Pain Medicine
DX: M54.16 Radiculopathy, lumbar region (principal)
CPT/HCPCS: 72100

== ENCOUNTER → 2022-12-23 | Outpatient (CLI) | payer MEDICARE, OTHER, SELFPAY ==
--- NOTE | 2022-12-23 07:31 | MRI_ITS ---
EXAM: MR LUMBAR SPINE WITHOUT INTRAVENOUS CONTRAST CLINICAL INDICATION: RADICULOPATHY TECHNIQUE: Multiplanar and multisequence MR images of the lumbar spine without intravenous contrast. COMPARISON: Plain film lumbar spine 12/20/2022 FINDINGS: VERTEBRAE: Levocurvature of the lumbar spine, with right lateral wedging of the L3 vertebrae. SPINAL CORD: Unremarkable. Normal position and signal intensity of the conus medullaris. SACRUM/COCCYX: Partial lumbarization of the S1 vertebral segment. SOFT TISSUES: Unremarkable. DISCS/SPINAL CANAL/NEURAL FORAMINA: L1-L2: Unremarkable. Normal disc height and morphology. Normal spinal canal and lateral recesses. Normal neuroforamina. L2-L3: Mild broad-based disc bulge, as well as facet arthropathy. Mild bilateral neural foraminal narrowing. Normal spinal canal and lateral recesses. L3-L4: Facet arthropathy, mild bilateral neural foraminal narrowing. Mild narrowing of the central canal posteriorly. L4-L5: Mild circumferential disc bulge as well as facet arthropathy. Mild central canal narrowing and mild bilateral neural foraminal narrowing. L5-S1: Mild left paracentral disc bulge with mild left-sided central canal narrowing, mild right and moderate left neural foraminal narrowing. MRI/Spine Lumbar (Routine) IMPRESSION: 1. Levocurvature of the lumbar spine, with right lateral wedging of the L3 vertebrae. Lumbarization of the S1 vertebral body. 2. Multilevel degenerative changes as detailed above, but no critical stenosis identified. Electronically Signed: Dex Craft MD at 6:34 EDT ,
== END | disposition home or self-care (01) ==
LOC: MRI 07:30
PROVIDERS: PCP Family Medicine Geriatric Medicine; Referring Provider Anesthesiology Pain Medicine; Visit Provider Anesthesiology Pain Medicine
DX: M54.16 Radiculopathy, lumbar region (principal)
CPT/HCPCS: 72148

== ENCOUNTER → 2023-02-23 | Outpatient (CLI) | payer MEDICARE, OTHER, SELFPAY ==
[2023-02-23 11:31] LABS: ALB/GLOB Ratio 0.9 RATIO (0.9-2.4); AST(SGOT) 19 U/L (15-37); Alanine Aminotransfer ALT/SGPT 21 U/L (13-56); Albumin, Serum 3.6 g/dL (3.2-5.0); Alkaline Phosphatase 121 U/L (45-117); Anion Gap 5 (5-15); BUN 29 mg/dL (7-18); BUN/Creat Ratio 21.3 RATIO (10-20); Calcium,Total 9.6 mg/dL (8.5-10.1); Chloride 103 mmol/L (98-107); Creatinine, Serum 1.36 mg/dL (0.55-1.02); EST Glomerular Filtration Rate 40 mL/min (>60); Est Glom Filt Rate - Afr Amer 49 mL/min (>60); Glucose 164 mg/dL (74-106); Protein, Total 7.6 g/dL (6.4-8.2); Sodium Level 136 mmol/L (136-145)
== END | disposition home or self-care (01) ==
PROVIDERS: PCP Family Medicine Geriatric Medicine; Referring Provider Registered Nurse; Visit Provider Registered Nurse
DX: I10 Essential (primary) hypertension (principal)
CPT/HCPCS: 36415; 80053

== ENCOUNTER → 2023-02-27 | Outpatient (CLI) | payer MEDICARE, OTHER, SELFPAY | END | disposition home or self-care (01) | LOC: LABSPEC 14:09 | PROVIDERS: PCP Family Medicine Geriatric Medicine; Visit Provider Family Medicine Geriatric Medicine | DX: N39.0 Urinary tract infection, site not specified (principal) | CPT/HCPCS: 87077; 87086; 87088; 87186 ==

== ENCOUNTER → 2023-05-30 | Outpatient (CLI) | payer MEDICARE, OTHER, SELFPAY ==
[2023-05-30 10:32] LABS: Absolute Lymphocyte Count 1.07 X10^3/uL (0.83-4.51); Absolute Neutrophil Count 4.7 X10^3/uL (2.0-7.7); Basophil# 0.04 X10^3/uL; Basophil% 0.6 % (0-1); Eosinophil# 0.09 X10^3/uL; Eosinophils% 1.4 % (0-5); Hematocrit 40.6 % (37-47); Hemoglobin 12.6 g/dL (12.0-15.0); Lymphocyte # 1.07 X10^3/ul (0.83-4.51); Lymphocyte % 17.1 % (19-41); Mean Corpuscular Hgb 27.6 pg (27.0-32.0); Mean Platelet Vol. 9.4 fl (6.2-12.0); Monocyte# 0.37 X10^3/uL; Monocyte% 5.9 % (0-10); NRBC Flagged by Analyzer 0 % (0-5); Neutrophil # 4.65 X10^3/uL (2.7-7.7); Neutrophil % 74.5 % (47-70); Platelet Count 252 K/mm3 (150-450); RBC Distribution Width CV 13.4 % (11.6-14.6); RBC Distribution Width SD 43.5 fl (35.1-43.9); Red Blood Count 4.56 M/mm3 (4.2-5.4); White Blood Count 6.3 K/mm3 (4.4-11.0)
[2023-05-30 10:42] LABS: Vitamin D,25 Hydroxy 32.4 ng/mL
[2023-05-30 11:12] LABS: ALB/GLOB Ratio 0.9 RATIO (0.9-2.4); AST(SGOT) 12 U/L (15-37); Alanine Aminotransfer ALT/SGPT 14 U/L (13-56); Albumin, Serum 3.3 g/dL (3.2-5.0); Alkaline Phosphatase 106 U/L (45-117); Anion Gap 6 (5-15); BUN 19 mg/dL (7-18); BUN/Creat Ratio 16.2 RATIO (10-20); Calcium,Total 8.8 mg/dL (8.5-10.1); Chloride 107 mmol/L (98-107); Creatinine, Serum 1.17 mg/dL (0.55-1.02); EST Glomerular Filtration Rate 48 mL/min (>60); Est Glom Filt Rate - Afr Amer 58 mL/min (>60); Globulin 3.6 g/dL (2.2-4.2); Glucose 263 mg/dL (74-106); Potassium 3.9 mmol/L (3.5-5.1); Protein, Total 6.9 g/dL (6.4-8.2); Sodium Level 138 mmol/L (136-145); Thyroid Stim Hormone (TSH) 1.54 uIU/mL (0.358-3.74)
== END | disposition home or self-care (01) ==
PROVIDERS: PCP Family Medicine Geriatric Medicine; Visit Provider Family Medicine Geriatric Medicine
DX: I10 Essential (primary) hypertension (principal); E11.65 Type 2 diabetes mellitus with hyperglycemia; E55.9 Vitamin D deficiency, unspecified
CPT/HCPCS: 36415; 80053; 82306; 84443; 85025

== ENCOUNTER → 2023-06-23 | Outpatient (CLI) | payer MEDICARE, OTHER, SELFPAY ==
--- NOTE | 2023-06-23 08:46 | CT_ITS ---
STUDY: CT LUMBAR SPINE WITHOUT CONTRAST REASON FOR EXAM: Female, 78 years old. lumbar scoliosis RADIATION DOSAGE (If Supplied By Facility): CTDIvol = ( 24.18 ) mGy, DLP = ( 642.12 ) mGycm TECHNIQUE: The patient was scanned in a multi detector CT scanner. High resolution transaxial imaging was performed. Images were obtained from T12 to S1. Sagittal and coronal images were reconstructed. Individualized dose optimization techniques were used for this CT. COMPARISON: X-ray 06/01/2023, MRI 12/23/2022 FINDINGS: Normal lumbar lordosis. Moderate levoscoliosis centered at L2. Chronic moderate wedge compression fracture of L2 with 5 mm retropulsion of the superior endplate into the spinal canal producing moderate spinal stenosis. L1-2: Chronic moderate wedge compression fracture of L2 with levoscoliosis, focal kyphosis, and 5 mm retropulsion of the superior endplate of L2 into the spinal canal producing moderate spinal stenosis but no neural foraminal stenosis. L2-3: Mild bilateral facet hypertrophy and ligament flavum hypertrophy. Mild bilobed disc protrusion produces mild spinal stenosis and mild bilateral neural foraminal stenosis. L3-4: Mild bilateral facet hypertrophy and ligament flavum hypertrophy. Mild broad disc protrusion with vacuum disc formation produces mild spinal stenosis and mild bilateral neural foraminal stenosis. L4-5: Moderate bilateral facet hypertrophy and moderate ligament flavum hypertrophy. 2 mm of anterolisthesis of L4 and L5 with a mild broad disc protrusion produces mild spinal stenosis and moderate bilateral neural foraminal stenosis. L5-S1: Mild bilateral facet hypertrophy and ligament flavum hypertrophy. Mild broad disc protrusion produces mild spinal stenosis and mild bilateral neural foraminal stenosis. Normal visualized paraspinous soft tissue structures. CT/Spine Lumbar without Contrast IMPRESSION: 1. Chronic moderate wedge compression fracture of L2 with 5 mm retropulsion of the superior endplate into the spinal canal producing moderate spinal stenosis. 2. Moderate levoscoliosis centered at L2 with degenerative disc disease as described above. Electronically Signed: Dangelo Jiménez MD at 22:57 EST ,
== END | disposition home or self-care (01) ==
LOC: CT 08:45
PROVIDERS: PCP Family Medicine Geriatric Medicine; Referring Provider Orthopaedic Surgery Orthopaedic Surgery of the Spine; Visit Provider Orthopaedic Surgery Orthopaedic Surgery of the Spine
DX: M41.9 Scoliosis, unspecified (principal)
CPT/HCPCS: 72131

== ENCOUNTER → 2023-07-16 | Outpatient (CLI) | payer MEDICARE, OTHER, SELFPAY | END | disposition home or self-care (01) | LOC: PSN 09:09 | PROVIDERS: PCP Family Medicine Geriatric Medicine; Referring Provider Family Medicine Geriatric Medicine; Visit Provider Family Medicine Geriatric Medicine | DX: R68.83 Chills (without fever) (principal) | CPT/HCPCS: 87631 ==

== ENCOUNTER → 2023-07-31 | Outpatient (CLI) | payer MEDICARE, OTHER, SELFPAY ==
--- NOTE | 2023-07-31 13:51 | BD_ITS ---
STUDY: DUAL ENERGY X-RAY ABSORPTIOMETRY / DXA REASON FOR EXAM: Female, 78 years old. Osteopenia TECHNIQUE: Bone Mineral Density (BMD) measurements of lumbar spine and bilateral hips were obtained. COMPARISON: Comparison is made with prior study dated November 20, 2017. FINDINGS: Lumbar Spine (L1-L4): g/cm2 (1.262) / T-score (2.0) / Z-score (4.5) Findings are suggestive of normal bone density with a low fracture risk. Left Femur Total: g/cm2 (0.810) / T-score (-1.1) / Z-score (0.8) Left Femoral Neck: g/cm2 (0.536) / T-score (-2.8) / Z-score (-0.6) Right Femur Total: g/cm2 (0.818) / T-score (-1.0) / Z-score (0.9) Right Femoral Neck: g/cm2 (0.589) / T-score (-2.3) / Z-score (-0.2) The T-Scores on the most recent prior examination were: Lumbar Spine (L1-L4): There has been worsening of bone density since the previous examination. Left Femur Total: which represents a worsening of 2.4%. Right Femur Total: which represents a worsening of 6.2%. BD/Dexa Bone Density Study IMPRESSION: The patient is considered osteoporotic as outlined below according to World David Organization (WHO) criteria with a high fracture risk. There has been worsening of bone density since the previous examination. Reference Information: The T-score is the number of standard deviations above or below the standard which is normal for young adults at their peak bone mineral density. The World Health Organization (WHO) interprets the T-scores as follows: Above -1 Normal bone density Between -1 and -2.5 Osteopenia Equal to / or below -2.5 Osteoporosis As a practical clinical guideline, osteopenia may be graded as follows: Mild -1 through -1.5 Moderate -1.6 through -2.0 Severe -2.1 through -2.4 The Z-score is the number of standard deviations above or below age-matched controls. A Z-score of less than -1.5 would be considered abnormal. References: 1. NIH Osteoporosis and Related Bone Diseases www osteo.org 2. International Society for Clinical Densitometry www iscd.org 3. National Osteoporosis Foundation www nof.org Electronically Signed: Akira Barth MD at 14:59 EST ,
== END | disposition home or self-care (01) ==
LOC: OPBD 13:47
PROVIDERS: PCP Family Medicine Geriatric Medicine; Referring Provider Orthopaedic Surgery Orthopaedic Surgery of the Spine; Visit Provider Orthopaedic Surgery Orthopaedic Surgery of the Spine
DX: M85.89 Other specified disorders of bone density and structure, multiple sites (principal)
CPT/HCPCS: 77080

== ENCOUNTER 2023-09-18 05:25 | Inpatient (IN) | payer MEDICARE, OTHER, SELFPAY ==
[2023-08-14 11:04] LABS: Absolute Lymphocyte Count 1.02 X10^3/uL (0.83-4.51); Absolute Neutrophil Count 5.6 X10^3/uL (2.0-7.7); Basophil# 0.09 X10^3/uL; Basophil% 1.2 % (0-1); Eosinophil# 0.27 X10^3/uL; Eosinophils% 3.6 % (0-5); Hematocrit 39.2 % (37-47); Hemoglobin 12.9 g/dL (12.0-15.0); Lymphocyte # 1.02 X10^3/ul (0.83-4.51); Lymphocyte % 13.6 % (19-41); Mean Corp Hgb Conc 32.9 g/dL (32-36); Mean Corpuscular Hgb 28.2 pg (27.0-32.0); Mean Corpuscular Volume 85.6 fL (81-99); Monocyte# 0.47 X10^3/uL; Monocyte% 6.3 % (0-10); NRBC Flagged by Analyzer 0 % (0-5); Neutrophil # 5.59 X10^3/uL (2.7-7.7); Neutrophil % 74.8 % (47-70); POSITIVE COUNT YES; RBC Distribution Width CV 14.8 % (11.6-14.6); Red Blood Count 4.58 M/mm3 (4.2-5.4); White Blood Count 7.5 K/mm3 (4.4-11.0)
[2023-08-14 11:24] LABS: Anion Gap 7 (5-15); BUN 23 mg/dL (7-18); BUN/Creat Ratio 18.3 RATIO (10-20); Calcium,Total 9.7 mg/dL (8.5-10.1); Chloride 110 mmol/L (98-107); Creatinine, Serum 1.26 mg/dL (0.55-1.02); EST Glomerular Filtration Rate 44 mL/min (>60); Est Glom Filt Rate - Afr Amer 53 mL/min (>60); Glucose 218 mg/dL (74-106); Potassium 4.1 mmol/L (3.5-5.1); Sodium Level 139 mmol/L (136-145)
[2023-08-14 11:28] LABS: Magnesium 1.9 mg/dL (1.6-2.6)
[2023-08-14 11:32] LABS: Hemoglobin A1c 7.7 % (3.8-5.6)
[2023-08-14 11:41] LABS: Differential Indicated SCAN CRITERIA MET
[2023-08-14 11:42] LABS: Platelet Estimate ADEQUATE (ADEQ)
[2023-08-14 12:03] LABS: HIV - WCH Non-Reactive (Nonreactive); Hepatitis B Surface Antibody Reactive; Hepatitis C Antibody Non-Reactive (Nonreactive)
[2023-08-15 06:08] LABS: Hepatitis A AB, Total Negative (Negative)
[2023-09-10 13:38] LABS: Hemoglobin A1c 7.2 % (3.8-5.6)
[2023-09-18] VITALS (15 sets, daily range): BP systolic 134–165; BP diastolic 65–84; PULSE 74–88; RESP 12–20; TEMP 35.9–36.8; O2SAT 93–100; BMI 33.5; BMI 33.6
[2023-09-18] MEDS: Magnesium 2 GM for ERAS IV (06:26)
[2023-09-18] MEDS: Acetaminophen 500 MG Tablet 1000 MG PO ×3 (06:26→21:45)
[2023-09-18 06:56] LABS: Platelet Count 218 K/mm3 (150-450)
[2023-09-18] MEDS: Lactated Ringers 1,000 ML 15 ML IV (07:00)
--- NOTE | 2023-09-18 07:27 | HP.PCM_ITS ---
History and Physical Date of Admission: 09/18/23 MR#: [id number] Acct: [id number] Name: DEANN DEGROOT Rep #: [id number] : 1945 Provider: Dr. Walter Chang MD Age/Sex: 78/F Location: [facility] – [place] Status: Signed Intake Vital Signs 06/01/2312:55 07/31/2412:49 Height 5 ft 7 in 5 ft 7 in Intake Visit Reasons: lumbar spine Chief Complaint: lumbar spine CT follow up Allergies amoxicillin trihydrate [From Augmentin] Allergy (Verified 07/19/23 11:08) Rashpotassium clavulanate [From Augmentin] Allergy (Verified 07/19/23 11:08) Rash PFSH Medical History (Updated 07/19/23 @ 11:25 by Ruby Feliciano) Back pain Diabetes Dietary restriction Former smoker Gastric reflux High cholesterol History of edema History of steroid therapy Hypertension Post-menopausal Restless legs Shortness of breath on exertion Type 2 diabetes mellitus without complications Surgical History (Updated 07/19/23 @ 11:25 by Ruby Feliciano) H/O abdominoplasty History of hysteroscopy History of vein stripping Hx of blepharoplasty Hx of breast biopsy Hx of colonoscopy Hx of foot surgery Hx of left cataract extraction Hx of right cataract extraction Social History Smoking Status: Former smoker HPI lumbar spine Details: This documentation accurately reflects the service provided and the decisions made by me, Dr. Walter Chang MD 08/01/23 1029. Part of today?s visit was documented by Sandrine HOBBS, acting as scribe. DEANN DEGROOT is a 78 year old F here today for pre-op lumbar spine. She is also here to review her dexa scan. Deann continues to have lower back lower extremity claudication radicular symptoms. She recently had a DEXA scan. She just recovered from a COVID infection a few weeks ago. Following this her previous history. 06/28/23: DEANN DEGROOT is a 78 year old F here today for follow up from CT scan. She reports constant lumbar spine pain that radaites down into her thighs bilaterally. She would like to discuss results and next steps. Deann continues to have difficulty with back pain, pain with sitting long peers of time. She also describes left lower extremity radicular pain along the lateral thigh and lateral leg causing numbness and difficulty walking distances. She also has bilateral anterior thigh tightness and lower back pain after sitting for a long period of time. She has had 2 epidural injections without persistent relief. She has tried physical therapy in the past. She is hoping to consider surgery now. She was previously on vitamin D supplementation but has stopped taking those recently. She was previously seen by me a few weeks ago and was advised to obtain CT scan for surgical planning. She is here to review the images. 06/01: Deann has had longstanding low back pain which is significantly worsened over the last 5 to 6 months with severe radiation of pain going down bilateral buttocks into the posterior thigh region worse on the right side. She also has significant pain in the lateral thigh and anterior thigh region on the right side. She has tried multiple epidural injections without significant relief. She has also tried chiropractor and massage treatment without much relief. She is able to walk about 1 block distance after which she has to find a place to sit down. 20 years ago she had an accident for which she was put in a brace which was likely course at and was placed for 3 months. This was probably related to treatment of the fracture although she is not certain. Her both kids as well as have scoliosis. Both her kids have been operated on for scoliosis. She does not see if she had a diagnosis of scoliosis from childhood. Ortho Exam General General: Yes no acute distress Neurologic: Yes alert and Yes oriented x3 Spine SPINE TESTING CERVICAL THORACIC LUMBAR Musculoskeletal Strength 0=absent - 5=normal Details: Examination of the back shows midline and paraspinal cervical tenderness in lower to mid lumbar spine. Neurologic evaluation of lower extremity shows 5 out of 5 power in all muscles normal sensations in all dermatomes. Pain is worse with bending backwards then forwards. Coding Level of Care Code Off vis,est,level 3 Diagnoses Osteopenia, unspecified location M85.80 Osteopenia location: unspecified Other secondary scoliosis, lumbar region M41.56 Scoliosis type: other secondary scoliosis Spondylolisthesis, lumbar region M43.16 Time Spent (min) 35 Assessment and Plan Assessment and Plan (1) Osteopenia: Status: Acute Qualifiers: Osteopenia location: unspecified Qualified Code(s): M85.80 - Other specified disorders of bone density and structure, unspecified site (2) Lumbar scoliosis: Status: Acute Qualifiers: Scoliosis type: other secondary scoliosis Qualified Code(s): M41.56 - Other secondary scoliosis, lumbar region (3) Spondylolisthesis, lumbar region: Status: Acute Orders: Orders Hemoglobin A1c Today E11.9 - Type 2 diabetes mellitus without complications, M85.80 - Other specified disorders of bone density and structure, unspecified site Plan I again reviewed the CT scan with her in detail. I also again reviewed the x- rays and MRI done recently. She has lumbar scoliosis with concavity to the right with a compensatory small thoracic curve as well. She has L4-5 grade 1 spondylolisthesis with mild central dynamic instability as well. 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 It is unclear if the scoliosis is secondary to the L2 coronal wedging versus idiopathic. She has mild foraminal stenosis at L4-5 slightly worse on the left than the right. CT confirms the L2 wedging at L1-2 autofusion. There is vacuum phenomenon at L3-4 and L4-5. There is osteopenia suggestive from Hounsfield unit measurements in the 80s and 90s in the mid lumbar vertebra. I reviewed her recent DEXA scan which shows T-score -2.8 in the left hip and - 2.3 on the right hip suggestive of osteoporosis versus osteopenia. I again encouraged her to take calcium and vitamin D supplementation. I also requested that she reach out to Dr. Mcleod regarding bisphosphonates or other treatment for osteoporosis. It is okay for her to start such treatment prior to surgery. I again went through options of treatment for her lower back symptoms which include continued nonoperative treatments versus surgery. Patient has had worsening pain affecting her quality of life. She wishes to proceed with surgical intervention. Patient has had multiple injections and prolonged course of nonsurgical treatment without significant help. She wishes to proceed with surgical intervention. I explained to her that the L1-2 autofusion is solid and is the apex of her scoliosis. In presence of osteopenia, and extensive scoliosis correction surgery may have a high risk of hardware related complications. I suggested targeting the L3-4 L4-5 with decompression fusion to help with her radicular and claudication symptoms. She may need cement augmentation intraoperatively for the pedicle screws depending on her DEXA scan findings. She will undergo medical clearance prior to surgery. She mentions that her last A1c was 7.4 done in May although reports not available. She will try to maintain her A1c below 7.5 until surgery and also beyond. We will repeat A1c preoperatively. Surgery will be L3-5 anterior posterior fusion with indirect decompression. All risk benefits and alternatives were discussed in detail. The risks include but are not limited to infection, bleeding, injury to nerves and vessels, bowel injury, vessel injury, hardware failure, pseudoarthrosis, nerve injury, foot drop, DVT, pulmonary embolism, adjacent segment degeneration, cardiopulmonary event, need for further surgeries. Patient agrees to proceed with surgery. Consent was signed.
[2023-09-18] MEDS: Clindamycin 900 MG/50 ML BAG 75 MG IV ×2 (07:50→16:26)
--- NOTE | 2023-09-18 07:56 | RAD_ITS ---
PROCEDURE: Anterior and posterior fusion at the L3-L4 and L4-L5 levels. DATE OF EXAMINATION: September 18, 2023. INDICATION: Female, 78 years old. Chronic low back pain. FLUOROSCOPY TIME (if supplied): (2 minutes and 5 seconds.) minutes/seconds. 108.63 mGy. 3 images were submitted. RAD/Lumbar Spine 2 or 3 Views IMPRESSION: Intraoperative fluoroscopic imaging provided for anterior and posterior fusion at the L3-L4 and L4-L5 levels. Electronically Signed: Akira aBrth MD at 19:11 EDT ,
[2023-09-18 08:06] LABS: Bedside Glucose 146 mg/dL (74-106)
[2023-09-18] MEDS: Ropivacaine 0.5% 30 ML Vial (12:47)
--- NOTE | 2023-09-18 13:03 | OP.PCM_ITS ---
Report of Operation Date of Procedure: 09/18/23 Description of Surgical Findings:: Preoperative diagnosis: L4-5 spondylolisthesis, L3-5 disc degeneration with foraminal stenosis, lumbar scoliosis Postoperative diagnosis: Same Name of procedures L3-5 oblique lumbar interbody fusion (OLIF), minimally invasive left sided approach, lateral decubitus: ? L3-4 anterolateral spinal fusion 66975 ? L4-5 anterolateral fusion 50060/51 ? L3-4 insertion of cage 05376 ? L4-5 insertion of cage 52353/51 ? Allograft cancellous chips with Infuse Attending Surgeon: Dr. Walter Chang Co-surgeon: Dr. Margarito Aleman Estimated blood loss: 50 mL Anesthesia: General Complications: None Indications: Patient is a 78-year-old pleasant lady who has had a long history of low back pain and left lower extremity radiation, claudication. Xrays & MRI revealed L4-5 spondylolisthesis, L3-5 disc degeneration with foraminal stenosis, lumbar scoliosis. After undergoing a prolonged period of nonoperative treatment, she elected to undergo surgical decompression & fusion. All surgical options were discussed with the patient including anterior and posterior approaches. All risks and benefits associated with the procedure were explained to the patient. The risks include but are not limited to infection, bleeding, injury to nerves and vessels including major vessels like IVC and aorta, persistent paresthesia, persistent pain, dural tear, need for further procedures, adjacent segment degeneration, pseudoarthrosis, hardware failure, retrograde ejaculation, paralytic ileus, etc. Procedure: The patient was identified in the preoperative holding suite using Unique patient identifiers. Skin was marked, consent was reviewed, and all questions were answered. The patient was then brought back to the operative room. A surgical timeout was performed to make sure correct procedure was being done on the correct patient and all operative room staff were on the same page. General endotracheal anesthesia was then given to the patient. Montez catheter was inserted. The patient was then carefully positioned in right lateral decubitus position with the left side up on a regular OR table. Axillary roll was placed and all bony prominences were well- padded. Hip positioners were placed in the posterior buttocks and anterior sternal area. The surgical area was prepped and draped in usual fashion. Preoperative antibiotic was injected IV as preoperative antibiotic. A final timeout was then again done just before starting the procedure. A 2 inch incision oblique was taken in the left lower quadrant of the abdomen 2 fingerbreadths away from the iliac crest and the lower ribs. Sharp dissection with Bovie was carried out up to the fascia covering the external oblique. The external oblique, internal oblique and transversus abdominis muscles were split along the muscle fibers and retroperitoneal space was entered. Sponge sticks were utilized to move the bowel and peritoneum rtd-qo-toh-way and psoas muscle was exposed staying within the retroperitoneal plane. NaviExpert retractor system was positioned and the retractor blade was applied onto the psoas. The interval between psoas and midline structures was developed and appropriate retractors were placed. Once adequate interval was cleared, a disc space was identified and a marker x-ray was taken. This identified the L3-4 disc level. The prepsoas interval was then traced inferiorly to expose the L4-5 disc. Annulotomy was done with a long handled knife starting at L4-5. Pituitary was used to remove disc material. Curettes were used to prepare the endplates. Disc space spreaders were utilized to distract and increase the disc height. Near complete discectomy was performed. Trials of serially increasing sizes were used. A Depuy [place] cage of size of the 18 x 45 x 12 mm with 15 degrees lordosis was packed with corticocancellous allograft bone chips wrapped with bone morphogenic protein Infuse soaked sponge. This was inserted into the L4-5 disc space. The retractors were then repositioned to expose the L3-4 disc and the procedure was repeated with complete discectomy and endplate preparation. Smaller disc distractors were also used to bluntly perform a contralateral annulotomy at both levels. Cage size was 18 x 45 x 12 mm at L3-4. AP and lateral C-arm pictures were taken to confirm good position of the cage. Some bone chips were also packed around the cages. Screw with washer was placed into the lower L3 and L4 body with a washer partially covering the cage at both levels. Hemostasis was confirmed. The retractor blades were removed. Closure was done in layers with a continuous strand of # 1 Vicryl in all muscle layers. 2-0 Vicryl was used for subcutaneous tissue and 4-0 for Monocryl for the skin. Steri-Strips were applied and 4 x 4 gauze and Tegaderm were applied. Admit VTE Documentation VTE Mechan Device Prophylaxis: SCD's Procedures Musculoskeletal 20xxx-29xxx: Other Procedure See Report
--- NOTE | 2023-09-18 13:09 | OP.PCM_ITS ---
Report of Operation Date of Procedure: 09/18/23 Description of Surgical Findings:: Preoperative diagnosis: L4-5 spondylolisthesis, L3-5 disc degeneration with foraminal stenosis, lumbar scoliosis Postoperative diagnosis: Same Name of procedures: L3-5 posterior percutaneous cement augmented pedicle screw instrumented fusion, prone: ? L3-4 posterior spinal fusion 52138 ? L3-5 posterior cement augmented pedicle screw instrumentation 16842 ? L4-5 posterior fusion 73827/51 ? Allograft cancellous chips Attending Surgeon: Dr. Walter Chang Asst surgeon: Dr. Darian Daly Estimated blood loss: 50 mL (total for entire case) Anesthesia: General Complications: None Description of procedure: After the anterior procedure was complete, the patient was then turned supine. The patient was then transferred to Kai table in prone position. Back was prepped and draped in usual fashion. C-arm AP view was then taken. C-arm was positioned in a way that L3 was centralized and superior endplate of was parallel to the beam. Spinous process was centered between the pedicles. Midline was marked with skin marker and lateral borders of the pedicles were also marked. Skin marker was also utilized to leny transversely across the middle of the pedicles at L3. 2 transverse paramedian incisions of 1 inch were placed. The fascia was incised vertically. Finger dissection was utilized to palpate the transverse process and facet joint. Viper Prime screws with towers were inserted and docked onto the transverse processes. This was then slowly moved medially to reach the superior articular process of L3. This was then confirmed on C-arm and then a mallet was utilized to drive the trocar into the pedicle going up to the medial wall of the pedicle on AP view. This was performed both sides. C-arm lateral view confirmed that the tip of the trocar was in the vertebral body, and the screw was advanced into the pedicle and vertebral body. This was repeated similarly at L4 and L5 bilaterally. Screw sizes were 7 x 50 mm at all levels on both sides. Using [employer] prime system, cement was injected through the cannula through the screw fenestrations under C-arm fluoroscopy control until adequate vertebral body fill was noticed. 65 mm precontoured titanium 5.5 mm lordotic collette on the left and 75 mm on the right were then passed through the screw extensions and reduced down to the screws with the help of Depuy [employer] instrumentation system on both sides. AP and lateral view of the C-arm showed good positioning of the screws and cages. Final tightening with the torque screwdriver was then completed. Oneil was utilized to roughen the facet joint at L3-4 and L4-5 on the left side. Cancellous allograft bone chips mixed with bone marrow aspirate were then placed over this decorticated area. Hemostasis was achieved. Closure was done in layers with 0 Vicryls for the fascia, 2-0 Vicryls for the subcutaneous tissue, and Monocryl for the skin. Dermabond was applied. Dressings were applied covered with Tegaderm. The patient was then turned supine onto a hospital bed. The patient was extubated and taken to PACU in stable condition. The patient tolerated the procedure well and no complications occurred. Depuy [place] cage & Viper Prime minimally invasive pedicle screw instrumentation system was utilized in this case. No dural tear was identified intraoperatively. I was present for the entirety of the case and performed the surgery. Admit VTE Documentation VTE Mechan Device Prophylaxis: SCD's Procedures Musculoskeletal 20xxx-29xxx: Other Procedure See Report
[2023-09-18] MEDS: Insulin Lispro 100 UNIT/ML INSULN.PEN SC ×3 (14:32→21:54)
[2023-09-18 14:40] LABS: Bedside Glucose 281 mg/dL (74-106)
[2023-09-18 15:03] LABS: HIV - WCH Non-Reactive (Nonreactive); Hepatitis B Surface Antibody Reactive; Hepatitis B Surface Antigen Non-Reactive (Nonreactive); Hepatitis C Antibody Non-Reactive (Nonreactive)
--- NOTE | 2023-09-18 16:08 | CON.PCM.HO_ITS ---
Assessment & Plan Assessment/Plan (1) Lumbar scoliosis: QUALIFIERS: Scoliosis type: other secondary scoliosis Qualified Code(s): M41.56 - Other secondary scoliosis, lumbar region (2) Diabetes mellitus, type 2: (3) Hypertension: PLAN: Plan Patient is a 78-year-old female who presented to [facility] on 09/18/2023 for planned lumbar fusion procedure. Medicine consulted postoperatively for medical management. 1. Lumbar stenosis and disc disease s/p L3-5 posterior lumbar fusion ? Orthopedics primary. Tolerated procedure well, no immediate perioperative complications. Further management per orthopedics. Follow-up a.m. CBC and BMP. 2. Type 2 diabetes mellitus with hyperglycemia ? Home regimen of metformin 1000 mg twice daily, Actos 30 mg daily. Last A1c 7.2% on 09/10/2023. Blood glucose 146 on morning of procedure, elevated to 317 postoperatively likely due to acute stress of the procedure. Okay for sliding- scale insulin with meals with high?medium dosing for now, adjust as needed. 3. Hypertension ? Will hold home valsartan 320 mg daily tomorrow to ensure good kidney function on a.m. BMP and adequate blood pressures. Restart as able. Chronic medical conditions: ? Obesity: BMI 33. Complicates hospital course, care, recovery and prognosis. ? Hyperlipidemia: Continue home statin. ? GERD: Continue home PPI. ? Menopausal symptoms: Continue home medications. DVT prophylaxis: Per orthopedic recommendations Total clinical time spent by myself addressing the patient's medical issues, reviewing all the data, and collaborating with patient's care team: 35 minutes. HPI Consult Data Date of Consult: 09/18/23 HPI Narrative Reason for Consultation: Postoperative medical management HPI Narrative: ANNE-MARIE DEGROOT, is a 78 F who presented to [facility] on 09/18/2023 for planned lumbar fusion procedure. Patient had L3-L5 posterior lumbar fusion done with Dr. Chang today. Medicine was consulted for postoperative medical management. I saw the patient at the bedside this evening about 1 to 2 hours after she arrived back to the floor from PACU. She was sitting up comfortably in bed and talking to a family member on the phone when I arrived to the room. She reported feeling more tired than normal and had just woken up from a nap recently, but otherwise she was feeling fairly well. She d enies any significant low back pain. She had eaten some Jell-O and had mild nausea but stated this was tolerable. She denied any chest pain, shortness of breath, abdominal pain or discomfort. No other acute concerns at this time. COUNTS INCLUDE 234 BEDS AT THE [facility] Medical History (Updated 09/18/23 @ 20:[address] Lenin Greer, DO) Back pain Diabetes Dietary restriction Former smoker Gastric reflux High cholesterol History of edema History of steroid therapy Hypertension Post-menopausal Restless legs Shortness of breath on exertion Type 2 diabetes mellitus without complications Home Medications pantoprazole 40 mg tablet,delayed release 40 mg PO DAILY GERD 05/06/14 [History Last Taken 09/18/23] simvastatin 80 mg tablet 80 mg PO QHS CHOLESTEROL 05/06/14 [History Last Taken 09/17/23] estradiol 1 mg tablet 1 mg PO DAILY HORMONE 06/01/23 [History Last Taken 09/17/23] metformin 500 mg tablet 1,000 mg PO BID DIABETES 06/01/23 [History Last Taken 09/17/23] valsartan 320 mg tablet 320 mg PO DAILY BP 06/01/23 [History Last Taken 09/18/23] medroxyprogesterone 5 mg tablet 5 mg PO DAILY HOT FLASHES 07/19/23 [History Last Taken 09/17/23] pioglitazone 30 mg tablet (Actos) 30 mg PO DAILY DIABETES 09/04/23 [History Last Taken 09/17/23] Allergy/AdvReac Type Severity Reaction Status Date / Time amoxicillin trihydrate Allergy Rash Verified 09/18/23 06:14 [From Augmentin] potassium clavulanate Allergy Rash Verified 09/18/23 06:14 [From Augmentin] Surgical History (Updated 07/19/23 @ 11:25 by Ruby Feliciano) H/O abdominoplasty History of hysteroscopy History of vein stripping Hx of blepharoplasty Hx of breast biopsy Hx of colonoscopy Hx of foot surgery Hx of left cataract extraction Hx of right cataract extraction Social History Smoking Status: Former smoker ROS Constitutional Constitutional: Reports fatigue; Denies chills, fever(s) or weakness Eyes Eyes: Denies change in vision Cardiovascular Cardiovascular: Denies chest pain Respiratory/Chest Respiratory/Chest: Denies shortness of breath at rest Gastrointestinal Gastrointestinal: Reports nausea; Denies abdominal pain, constipation, diarrhea or vomiting Musculoskeletal Musculoskeletal: Denies arthralgias or back pain Neurologic Neurologic: Denies focal weakness, headache(s), numbness or paresthesias Physical Exam Const alert, oriented x3 and no apparent distress Constitutional Narrative: Pleasant elderly female, obese, mildly fatigued appearing but otherwise sitting up comfortably in bed, conversing normally, in no acute distress. General Appearance: cooperative and comfortable HEENT normocephalic, head/scalp atraumatic, hearing grossly normal bilaterally, nasal mucous membranes and turbinates normal and moist oral mucous membranes Eyes PERRL, EOMs intact bilaterally and conjunctivae normal Neck full ROM Chest inspection of chest normal Resp normal respiratory effort, normal air movement, no use of accessory muscles and clear to auscultation bilaterally Cardio regular rate, regular rhythm, no murmurs and peripheral pulses 2+ throughout GI normal to inspection, nondistended, normoactive bowel sounds, soft to palpation, non-tender and non-distended Back/Spine Back/Spine Narrative: No gross abnormalities on visual exam. Did not attempt any movement of the patient. Extremity normal to inspection, full ROM and no pedal edema Skin no rashes or lesions noted Neuro no focal motor deficits and no sensory deficits noted Speech: speech normal Psych mental status grossly normal Lab / Micro Data 09/18/23 06:50 08/14/23 10:32 Labs: Laboratory Results - last 24 hr 09/18/23 06:19: POC Glucose 146 H 09/18/23 06:50: Plt Count 218 09/18/23 13:38: Hep Bs Antigen Non-Reactive, Hep Bs Antibody Reactive, Hepatitis C Antibody Non-Reactive, HIV 1&2 Antibody Non-Reactive 09/18/23 14:23: POC Glucose 281 H Charges/Coding Visit Charges Inpatient E&M: 59860 Subs Hosp L2
[2023-09-18] MEDS: Methocarbamol 500 MG Tablet 1000 MG PO ×2 (16:23→21:46)
--- NOTE | 2023-09-18 17:34 | PCM.OPRPT ---
Report of Operation Date of Procedure: 09/18/23 Pre-Operative Diagnosis: L4-5 spondylolisthesis, L3-5 disc degeneration with foraminal stenosis, lumbar scoliosis Post-Operative Diagnosis: same Surgery/Procedure Performed:: L3-5 oblique lumbar interbody fusion (OLIF), minimally invasive left sided approach, lateral decubitus: ? L3-4 anterolateral spinal fusion 32370 ? L4-5 anterolateral fusion 48839/51 ? L3-4 insertion of cage 79406 ? L4-5 insertion of cage 53730/51 ? Allograft cancellous chips with Infuse [id number] Surgeon: Co-Surgeons: Dr. Chang, Dr. Aleman Type of Anesthesia: General Description of Procedure: HPI: Patient is a 78-year-old female with L3-L4 and L4-L5 degenerative disc disease and scoliosis who was evaluated by Dr. Chang and felt to be appropriate for oblique lumbar interbody fusion. Vascular surgery services are requested for exposure. Description of procedure: Upon obtaining informed consent and verification correct patient procedure site patient taken the operating where she was placed under general anesthesia. She was then positioned prepped and draped in usual sterile fashion and timeout was performed. Oblique incision was made superior to the iliac crest improve electrocautery was dissect down through the subcutaneous tissue. Self-retaining retractors then put in position further dissection carried down to level the fascia. Fascia was then incised and the muscle fibers of the external bleak split along the orientation of the fibers. Hand-held retractors then placed in the position and further dissection carried to the internal oblique which was again incised and split along its fibers. Hand-held retractors removed deeper in the wound exposing the transversalis muscle. This was then split along its muscle fibers gaining entry into the retroperitoneum. Blunt dissection was then used to dissect through the retroperitoneum back to the psoas muscle. Once this was visualized at the Syn frame self-retaining retractor was put into position. At this point in the psoas muscle was mobilized and detached from the lumbar vertebral body and disc and retracted further laterally. Once exposure was obtained of the L3-L4 disc space we then turned our attention distally to the L4-L5 disc space. Soft tissue was then dissected with combination of Bovie and sharp dissection. Once the L4-L5 disc was exposed Dr. Chang performed his discectomy and implant placement which she will describe in further detail. After this was completed we then turned our attention back to the L3-L4 disc space again with discectomy and implant described by Dr. Chang in greater detail. After this was completed the retroperitoneum was inspected for hemostasis and the self-retaining retractor was removed along the abdominal contents to return to their seneca-cayuga position. The incision was then closed with running 0 Vicryl for each of the abdominal wall musculature layers followed by 3-0 Vicryl and 4 Monocryl for the skin. Dry sterile dressing was then applied and patient repositioned for posterior approach which Dr. Chang will dictate separately.
[2023-09-18 18:02] LABS: Bedside Glucose 317 mg/dL (74-106)
[2023-09-18] MEDS: Atorvastatin Calcium 40 MG Tablet PO (21:46)
[2023-09-18] MEDS: Ondansetron 4 MG/2 ML Vial IV (22:02)
[2023-09-18 22:24] LABS: Bedside Glucose 226 mg/dL (74-106)
[2023-09-19] VITALS (7 sets, daily range): BP systolic 135–154; BP diastolic 59–75; PULSE 83–105; RESP 15–16; TEMP 36.3–37.1; O2SAT 96–98; BMI 33.6
[2023-09-19] MEDS: Clindamycin 900 MG/50 ML BAG 75 MG IV (00:27)
[2023-09-19] MEDS: Acetaminophen 500 MG Tablet 1000 MG PO ×3 (06:40→21:26)
[2023-09-19] MEDS: Insulin Lispro 100 UNIT/ML INSULN.PEN SC ×4 (06:48→21:26)
[2023-09-19 07:12] LABS: Bedside Glucose 168 mg/dL (74-106)
[2023-09-19 07:34] LABS: Hematocrit 32.1 % (37-47); Hemoglobin 10.5 g/dL (12.0-15.0); Mean Corp Hgb Conc 32.7 g/dL (32-36); Mean Corpuscular Volume 88.7 fL (81-99); Mean Platelet Vol. 9.3 fl (6.2-12.0); Platelet Count 205 K/mm3 (150-450); RBC Distribution Width CV 15.1 % (11.6-14.6); RBC Distribution Width SD 48.8 fl (35.1-43.9); Red Blood Count 3.62 M/mm3 (4.2-5.4); White Blood Count 10.5 K/mm3 (4.4-11.0)
[2023-09-19 07:59] LABS: Anion Gap 8 (5-15); BUN 26 mg/dL (7-18); BUN/Creat Ratio 24.3 RATIO (10-20); Calcium,Total 8.5 mg/dL (8.5-10.1); Chloride 107 mmol/L (98-107); Creatinine, Serum 1.07 mg/dL (0.55-1.02); EST Glomerular Filtration Rate 53 mL/min (>60); Est Glom Filt Rate - Afr Amer 64 mL/min (>60); Estimated Creatinine Clearance 50.98 ml/min; Glucose 178 mg/dL (74-106); Sodium Level 136 mmol/L (136-145)
--- NOTE | 2023-09-19 08:15 | RAD_ITS ---
STUDY: X-RAY - LUMBAR SPINE REASON FOR EXAM: Female, 78 years old. s/p L3-5 fusion -- pls do Upright AP, Lat TECHNIQUE: AP lateral view(s) of the lumbar spine were obtained. COMPARISON: Comparison is made with prior study dated June 01, 2023. FINDINGS: Normal lumbar lordosis. There is a levoscoliosis of the lumbar spine. There is a normal alignment of the vertebrae. Stable loss of height of the L2 vertebrae with anterior spondylosis at the L1-L2 level. The patient is status post laminectomy and fusion at the L3-L4 and L4-L5 levels. There is evidence of vertebroplasty of the L3, L4 and L5 vertebrae. The soft tissue structures are unremarkable. RAD/Lumbar Spine 2 or 3 Views IMPRESSION: Status post fusion at the L3-L4 and L4-L5 levels. Levoscoliosis. Electronically Signed: Akira Barth MD at 9:09 EDT ,
--- NOTE | 2023-09-19 09:45 | CASEMGMT ---
RN CM Face to Face with patient for initial transition planning/care coordination assessment. RN CM introduced self and role at [facility]. Patient lying in bed, alert and oriented. Patient willing to participate in assessment and is able to answer all questions appropriately. Care providers, pharmacy, and demographics verified. PCP: Harsha Specialists: jazmin Chang Pharmacy: [facility] Insurance: MCR, [employer] Prescription Benefit: yes Living Will/HPOA: yes, daughter Joyce Pena LNOK: daughter, son Living Arrangements: Patient lives alone in a first floor home with 2 steps and railing to enter the home. Patient is independent at home. Transportation: son DME/HHC: Patient has shower chair, cane, crutches, walker, and grab bars at home. No previous HHC or SNF Patient wishes to discharge home, denies need for home health at this time. Patient states she has no further needs or concerns at this time. CM to follow for discharge planning needs that may arise. Disposition Plan: Patient to discharge home with family support and follow-u plans in place. Julia RODRIGUEZ, RN, CM
[2023-09-19] MEDS: Estradiol 1 MG Tablet PO (09:55)
[2023-09-19] MEDS: Pantoprazole Sodium 40 MG Tablet PO (09:55)
[2023-09-19] MEDS: Meloxicam 15 MG Tablet PO (09:55)
[2023-09-19] MEDS: Methocarbamol 500 MG Tablet 1000 MG PO ×4 (09:56→21:26)
[2023-09-19] MEDS: Senna/Docusate Sodium 1 Tablet 2 TABLET PO ×2 (09:56→21:26)
[2023-09-19] MEDS: Ensure Surgery 237 ML LIQUID PO (10:01)
--- NOTE | 2023-09-19 11:36 | CASEMGMT ---
Social Work SW met with pt to discuss advance directives.? Pt confirms she has completed a living will and health care POA naming her daughter Joyce Pena.? Pt notified that documents are not on file at [facility] and SW requested they be brought in for scanning into the EMR.? MANUELA Cruz
--- NOTE | 2023-09-19 11:44 | PCM.PN.ORT ---
Subjective Subjective Postop day 1 status post L3-5 fusion. Doing well. Was able to work with PT and also did stairs. Had some nausea yesterday but none today. No flatus yet. Tolerating clear liquids. Objective Data Objective Data Vital Signs: Vital Signs Temp Pulse Resp BP Pulse Ox O2 Del Method O2 Flow Rate 97.8 F 85 15 154/66 H 96 Room Air 5 09/19/23 06:34 09/19/23 06:34 09/19/23 06:34 09/19/23 06:34 09/19/23 06:34 09/19/23 06:34 09/18/23 15:32 Oxygen Flow Rate (L/min) 5 Oxygen Delivery Method Room Air Weight: 208 lb 1.862 oz Body Mass Index (BMI) 33.5 Intake & Output: Intake and Output for Last 24 Hours 09/17/23 09/18/23 09/19/23 23:59 23:59 23:59 Intake Total 2204 / 2404 3450.00 / 3450.00 Output Total 550 / 550 Balance 1654 / 1854 3450.00 / 3450.00 Lab / Micro Data 09/19/23 07:19 09/19/23 07:19 Labs: Laboratory Results - last 24 hr 09/18/23 13:38: Hep Bs Antigen Non-Reactive, Hep Bs Antibody Reactive, Hepatitis C Antibody Non-Reactive, HIV 1&2 Antibody Non-Reactive 09/18/23 14:23: POC Glucose 281 H 09/18/23 17:21: POC Glucose 317 H 09/18/23 21:52: POC Glucose 226 H 09/19/23 06:47: POC Glucose 168 H 09/19/23 07:19: WBC 10.5, RBC 3.62 L, Hgb 10.5 L, Hct 32.1 L, MCV 88.7, MCH 29.0, MCHC 32.7, RDW Std Deviation 48.8 H, RDW Coeff of Eddie 15.1 H, Plt Count 205, MPV 9.3, Sodium 136, Potassium 4.0, Chloride 107, Carbon Dioxide 21.0, Anion Gap 8, BUN 26 H, Creatinine 1.07 H, Estim Creat Clear Calc 50.98, Est GFR (MDRD) Af Amer 64, Est GFR (MDRD) Non-Af 53 L, BUN/Creatinine Ratio 24.3 H, Glucose 178 H, Calcium 8.5 Micro: Microbiology 08/14/23 10:32 Swab (Method) Nasal Screen MRSA/MSSA - Final Radiography Diagnostic Testing: Radiology Impression Lumbar Spine X-Ray 09/18/23 07:56 IMPRESSION: Intraoperative fluoroscopic imaging provided for anterior and posterior fusion at the L3-L4 and L4-L5 levels. Electronically Signed: Akira Barth MD at 19:11 EDT , Lumbar Spine X-Ray 09/19/23 08:15 IMPRESSION: Status post fusion at the L3-L4 and L4-L5 levels. Levoscoliosis. Electronically Signed: Akira Barth MD at 9:09 EDT , Physical Exam Narrative Dressings?CDI. Neurologic examination of lower extremity shows 5 x 5 power normal shows normal sensations in all dermatomes. Assessment & Plan Assessment/Plan (1) Status post lumbar spinal fusion: PLAN: Plan Did well with PT today. X-rays reviewed. Will continue clear liquids until she passes flatus. Otherwise she is ready for discharge home. If no flatus until morning, will start suppository and enema. If patient passes flatus today and tolerates solid meal, okay for discharge home, otherwise we will keep her additional night.
[2023-09-19] MEDS: Bisacodyl 5 MG Tablet PO (13:03)
[2023-09-19 13:16] LABS: Bedside Glucose 273 mg/dL (74-106)
[2023-09-19 17:41] LABS: Bedside Glucose 177 mg/dL (74-106)
[2023-09-19] MEDS: Atorvastatin Calcium 40 MG Tablet PO (21:27)
[2023-09-19 22:07] LABS: Bedside Glucose 193 mg/dL (74-106)
[2023-09-20] MEDS: Insulin Lispro 100 UNIT/ML INSULN.PEN SC (06:31)
[2023-09-20] MEDS: Acetaminophen 500 MG Tablet 1000 MG PO (06:31)
[2023-09-20 06:58] LABS: Bedside Glucose 179 mg/dL (74-106)
[2023-09-20 07:08] LABS: Hepatitis B Core Ab Total Negative (Negative)
[2023-09-20 08:40] VITALS: BP 171/71; PULSE 97; RESP 18; TEMP 36.8; O2SAT 98
[2023-09-20] MEDS: Senna/Docusate Sodium 1 Tablet 2 TABLET PO (08:44)
[2023-09-20] MEDS: Pantoprazole Sodium 40 MG Tablet PO (08:44)
[2023-09-20] MEDS: Estradiol 1 MG Tablet PO (08:44)
[2023-09-20] MEDS: Meloxicam 15 MG Tablet PO (08:44)
[2023-09-20] MEDS: Methocarbamol 500 MG Tablet 1000 MG PO (08:44)
--- NOTE | 2023-09-20 09:09 | PCM.PN.ORT ---
Subjective Subjective Postop day 2 status post L3-5 fusion. Passing gas and tolerating solid foods. Pain well-controlled. Objective Data Objective Data Vital Signs: Vital Signs Temp Pulse Resp BP Pulse Ox O2 Del Method O2 Flow Rate 98.3 F 97 18 171/71 H 98 Room Air 5 09/20/23 08:40 09/20/23 08:40 09/20/23 08:40 09/20/23 08:40 09/20/23 08:40 09/20/23 08:51 09/18/23 15:32 Oxygen Flow Rate (L/min) 5 Oxygen Delivery Method Room Air Weight: 208 lb 1.862 oz Body Mass Index (BMI) 33.5 Intake & Output: Intake and Output for Last 24 Hours 09/18/23 09/19/23 09/20/23 23:59 23:59 23:59 Intake Total 2204 / 2404 3450.00 / 3450.00 Output Total 550 / 550 Balance 1654 / 1854 3450.00 / 3450.00 Lab / Micro Data 09/19/23 07:19 09/19/23 07:19 Labs: Laboratory Results - last 24 hr 09/18/23 13:38: Hep B Core Total Ab Negative 09/19/23 12:54: POC Glucose 273 H 09/19/23 17:18: POC Glucose 177 H 09/19/23 21:24: POC Glucose 193 H 09/20/23 06:30: POC Glucose 179 H Micro: Microbiology 08/14/23 10:32 Swab (Method) Nasal Screen MRSA/MSSA - Final Radiography Diagnostic Testing: Radiology Impression Lumbar Spine X-Ray 09/19/23 08:15 IMPRESSION: Status post fusion at the L3-L4 and L4-L5 levels. Levoscoliosis. Electronically Signed: kAira Barth MD at 9:09 EDT , Physical Exam Narrative Dressings?CDI. Neurologic evaluation of lower extremity shows 5 x 5 power normal shows normal sensations in all dermatomes. Assessment & Plan Assessment/Plan (1) Status post lumbar spinal fusion: PLAN: Plan Postop day 2 status post L3-5 fusion. Did well with PT yesterday. Continue PT OT mobilization. Tolerating solid diet. Okay to discharge home and follow-up in 2 weeks. Patient was in agreement.
--- NOTE | 2023-09-20 10:33 | PHA.DC.MC.R ---
Pharmacy [facility] has performed discharge medication reconciliation and counseling for this patient. The patient's discharge medication list was reviewed for discrepancies and discrepancies were resolved. The patient was counseled on the following discharge medications and changes in medications for homegoing were reviewed. 1. TYLENOL 2. MOBIC 3. OXYCODONE 4. ROBAXIN The Reason for Use, instructions for use, and potential side effects were reviewed for all new medications. The patient's questions regarding all of their medications were answered. The patient was able to verbally demonstrate an understanding of their discharge medications. Medications at Discharge Home Medications pantoprazole 40 mg tablet,delayed release 40 mg PO DAILY GERD 05/06/14 simvastatin 80 mg tablet 80 mg PO QHS CHOLESTEROL 05/06/14 estradiol 1 mg tablet 1 mg PO DAILY HORMONE 06/01/23 metformin 500 mg tablet 1,000 mg PO BID DIABETES 06/01/23 valsartan 320 mg tablet 320 mg PO DAILY BP 06/01/23 medroxyprogesterone 5 mg tablet 5 mg PO DAILY HOT FLASHES 07/19/23 pioglitazone 30 mg tablet (Actos) 30 mg PO DAILY DIABETES 09/04/23 acetaminophen 500 mg tablet 500 mg PO Q6H 7 days #28 tabs 09/20/23 meloxicam 15 mg tablet 15 mg PO DAILY 30 days #30 tabs 09/20/23 methocarbamol 500 mg tablet 750 mg (1.5 x 500 mg) PO Q8H PRN Pain/spasms 7 days #28 tabs 09/20/23 oxycodone 5 mg tablet 2.5 - 5 mg (0.5 - 1 x 5 mg) PO Q6H PRN pain 7 days #28 tabs 09/20/23 sennosides 8.6 mg-docusate sodium 50 mg tablet (Stool Softener-Stimulant Laxative) 2 tab PO BID PRN constipation 7 days #28 tabs 09/20/23
[2023-09-20 11:00] VITALS: BP 153/71; PULSE 105; RESP 16; TEMP 36.7; O2SAT 98
== END 2023-09-20 11:11 | disposition home or self-care (01) | DRG 455 ==
LOC: ACINP 05:26 → MS3 13:59
PROVIDERS: Anesthesiology; Admitting Provider Orthopaedic Surgery Orthopaedic Surgery of the Spine; PCP Family Medicine Geriatric Medicine; Referring Provider Orthopaedic Surgery Orthopaedic Surgery of the Spine; Visit Provider Orthopaedic Surgery Orthopaedic Surgery of the Spine
PROC: 0SG10A0 Fusion of 2 or more Lumbar Vertebral Joints with Interbody Fusion Device, Anterior Approach, Anterior Column, Open Approach (ICD-10-PCS; principal; 2023-09-18 07:00)
DX: M43.16 Spondylolisthesis, lumbar region (principal); M41.56 Other secondary scoliosis, lumbar region; E11.65 Type 2 diabetes mellitus with hyperglycemia; I10 Essential (primary) hypertension; M48.061 Spinal stenosis, lumbar region without neurogenic claudication; E78.00 Pure hypercholesterolemia, unspecified; K21.9 Gastro-esophageal reflux disease without esophagitis; E66.9 Obesity, unspecified; N95.1 Menopausal and female climacteric states; M81.0 Age-related osteoporosis without current pathological fracture; M85.88 Other specified disorders of bone density and structure, other site; Z68.33 Body mass index [BMI] 33.0-33.9, adult; Z79.84 Long term (current) use of oral hypoglycemic drugs; Z79.899 Other long term (current) drug therapy; Z87.891 Personal history of nicotine dependence
CPT/HCPCS: 36415; 72100; 76000; 80048; 82962; 83036; 83735; 85025; 85027; 85049; 86703; 86704; 86706; 86708; 86803; 86850; 86900; 86901; 87081; 87340; 93005; 94668; 97162; C1713; J7120; J2405

== ENCOUNTER 2023-11-29 11:30 | Outpatient (RCR) | payer MEDICARE, OTHER, SELFPAY ==
--- NOTE | 2023-10-15 14:16 | HP.PTEVAL ---
Patient's Visit Information Visit Information Visit Information: ANNE-MARIE DEGROOT is a 78 year old F referred to Physical Therapy by Dr. Walter Chang MD with a diagnosis of ARTHRODEIS STATUS. Date of Evaluation: 10/15/23 Physical Therapist: Fito Torres PT, Cert MDT, OCS Visit Plan Frequency: 2x /Week Duration: 4 Weeks Plan: S/P LUMBAR FUSION 09/17 PT DLS ,BLE STRENGTHENING ( HIPS) ,POSTURAL EX'S ,LE FLEXIBILITY, AND ACTIVITY MODIFICATION Subjective Subjective: This 78 y/o female presents with physical therapy wit L3-5 lumbar fusion posterior fusion on 09/18/[address] Chang at [facility] . Patient d/c on 09/20/[address] .Patient [address] Dr October 08 and recommended PT. Prior to PT MRI showed L4-5 spondylolisthesis, L3-5 disc degeneration with foraminal stenosis, lumbar scoliosis. Patient recommended to extreme bending or lifting > 4 # per patient.Patient uses bone stimulator 2 hrs/day Patient had x-rays looked good. Patient has no back pain just right thigh. Patient sleeping in recliner. Aggravating standing extended periods ,sitting 1 hour. Alleviating factors walking and moving. Patient denies paresthesia/tingling -. Coughing/sneezing. Patient pain affects sleeping. Patient to RTD November 07. Patient pain affects ADLS and housework tasks. Patient goals to decrease pain and improve function. SOCIAL: VOCATION: retired Objective Objective: POSTURE: mild forward posture SKIN: incision well approximate NEURO: denies paresthesia/tingling ,reflexes L3-4,L4-5,L5-S1 1/3 GAIT: reciprocal pattern FLEXIBILITY: hamstrings WFL ,piriformis WFL MMT: quads/hams 4-/5 ,hip flexion 0/5 ,hip abd 0/5 ,ankle 4/5 LUMBAR ROM: min/mod loss ,side glides min/mod loss ,extension mod loss Special Tests L/S Slump test left side: Negative L/S Slump test right side: Negative L/S Left Straight Leg Raise: Negative L/S Right Straight Leg Raise: Negative Balance/Special Test Scores Oswestry Low Back Score: 21 Goals Goal 1:: Patient to be I with HEP for back Goal Time Frame: 4-6 Weeks Goal 2:: Patient to demonstrate 50% improvement with increase function and less pain. Goal Time Frame: 4-6 Weeks Goal 3:: Patient improve peak force of hips by 5-10# strength to improve gait and ADLS Goal Time Frame: 4-6 Weeks Goal 4:: Patient improve lumbar ROM for function of recovery to tie shoes. Goal Time Frame: 4-6 Weeks Goal 5:: Patient to improve back oswestry score by 5 points to improve QOL Goal Time Frame: 4-6 Weeks Rehabilitation Potential Physical Therapy Diagnosis: Patient has lumbar fusion L3-5 with weakness in hips ,decrease ROM lumbar impairs function and housework tasks thus benefit from skilled PT Rehabilitation Potential: Good Anticipated Interventions Patient/Client Instruction: Educate patient on: Condition and Plan of Care For the Purpose of:: To decrease pain, To increase ROM, To improve muscle performance and motor function, To improve ability to perform ADL's, To increase tolerance to activity/condition/position, To improve ability of physical actions for home/community/work/leisure, To improve health of tissue, To decrease soft tissue restriction, To increase flexibility/ROM, To improve endurance and To reduce risk of recurrence Therapeutic Exercise to Include: Strength training, Body mechanics, Postural training, Flexibilty training and Dynamic Lumbar Stabilization For the Purpose of:: To decrease pain, To increase ROM, To improve muscle performance and motor function, To improve ability to perform ADL's, To increase tolerance to activity/condition/position, To improve ability of physical actions for home/community/work/leisure, To improve health of tissue, To decrease soft tissue restriction, To increase flexibility/ROM, To improve endurance and To improve balance Text: Thank you for the opportunity to evaluate your patient. For Medicare and Medicare HMO plans, please review the plan of care and approve it. It will need to be FAXED BACK to us at [phone] for Medicare purposes. For Medicare only, by signing this I certify the plan of care. Please let me know if there are questions or concerns regarding this plan of care. Physician Signature: Date:
--- NOTE | 2023-11-12 12:23 | HP.PTDCSUM ---
Discharge Summary D/C summary: It has been my pleasure to treat ANNE-MARIE DEGROOT referred by Dr. Waletr Chang MD, with the diagnosis of ARTHRODEIS STATUS for a total of 8 visit(s). Discharge Date: Please see the following information for a summary of their discharge status. Subjective Subjective: Getting stronger and walking better Pain R hip: Pain Intensity (Out of 10): 1 LBP: Pain Intensity (Out of 10): 1 Overall Improvement % Improvement: 40 Objective Objective/Function: *PATIENT MAKING PROGRESS TO GOALS WITH INCREASE STRENGTH OF HIPS FUNCTION THUS WILL BENEFIT FROM SKILLED PT TO IMPROVE HIP STRENGTH WITH GOALS APPROPRIATE AND ADJUSTED * POSTURE: mild forward posture SKIN: incision well approximate NEURO: denies paresthesia/tingling ,reflexes L3-4,L4-5,L5-S1 1 GAIT: reciprocal pattern FLEXIBILITY: hamstrings WFL ,piriformis WFL MMT: quads/hams 4/5 ,(PEAK FORCE) hip flexion right 13.7 ,left 20.2 ,hip abd 2.3 right left 5.8 ,ankle 4/5 LUMBAR ROM: min/mod loss ,side glides min/mod loss ,extension mod loss Goals Goal 1:: Patient to be I with HEP for back Goal Progress: Progressing Goal 2:: Patient to demonstrate 50% improvement with increase function and less pain. Goal Progress: Progressing Goal 3:: Patient improve peak force of hips by 5-10# strength to improve gait and ADLS( NEW GOALS) Goal 4:: Patient improve lumbar ROM for function of recovery to tie shoes. Goal Progress: Progressing Goal 5:: Patient to improve back oswestry score by 5 points to improve QOL Goal Progress: Progressing Plan Plan: S/P LUMBAR FUSION 09/17 PT DLS ,BLE STRENGTHENING ( HIPS) ,POSTURAL EX'S ,LE FLEXIBILITY, AND ACTIVITY MODIFICATION D/C Information d/c sentence: If there are questions or concerns regarding this patient's physical therapy, please feel free to call me at [phone]. Thank you for the referral of this patient. Sincerely, Fito Torres, PT, Cert MDT, OCS Balance/Gait/Functional tests Balance/Special Test Scores Oswestry Low Back Score: 21 Improvement % Improvement: 40
--- NOTE | 2023-11-12 12:28 | HP.PTREVAL ---
Re-Evaluation Intro: Dr. Walter Chang MD, It has been my pleasure to treat ANNE-MARIE DEGROOT over the last 8 visits for ARTHRODEIS STATUS. Please see the progress note below for an update on the physical therapy plan of care! Subjective Subjective: Getting stronger and walking better Objective Objective/Function: *PATIENT MAKING PROGRESS TO GOALS WITH INCREASE STRENGTH OF HIPS FUNCTION THUS WILL BENEFIT FROM SKILLED PT TO IMPROVE HIP STRENGTH WITH GOALS APPROPRIATE AND ADJUSTED * POSTURE: mild forward posture SKIN: incision well approximate NEURO: denies paresthesia/tingling ,reflexes L3-4,L4-5,L5-S1 1/ GAIT: reciprocal pattern FLEXIBILITY: hamstrings WFL ,piriformis WFL MMT: quads/hams 4/5 ,(PEAK FORCE) hip flexion right 13.7 ,left 20.2 ,hip abd 2.3 right left 5.8 ,ankle 4/5 LUMBAR ROM: min/mod loss ,side glides min/mod loss ,extension mod loss Plan Plan Plan: S/P LUMBAR FUSION 09/17 PT DLS ,BLE STRENGTHENING ( HIPS) ,POSTURAL EX'S ,LE FLEXIBILITY, AND ACTIVITY MODIFICATION Balance/Gait/Functional tests Balance/Special Test Scores Oswestry Low Back Score: 21 Goals Goals Goal 1:: Patient to be I with HEP for back Goal Time Frame: 4-6 Weeks Goal Progress: Progressing Goal 2:: Patient to demonstrate 50% improvement with increase function and less pain. Goal Time Frame: 4-6 Weeks Goal Progress: Progressing Goal 3:: Patient improve peak force of hips by 5-10# strength to improve gait and ADLS( NEW GOALS) Goal Time Frame: 4-6 Weeks Goal 4:: Patient improve lumbar ROM for function of recovery to tie shoes. Goal Time Frame: 4-6 Weeks Goal Progress: Progressing Goal 5:: Patient to improve back oswestry score by 5 points to improve QOL Goal Time Frame: 4-6 Weeks Goal Progress: Progressing Anticipated Interventions Anticipated Interventions Patient/Client Instruction: Educate patient on: Condition and Plan of Care For the Purpose of:: To decrease pain, To increase ROM, To improve muscle performance and motor function, To improve ability to perform ADL's, To increase tolerance to activity/condition/position, To improve ability of physical actions for home/community/work/leisure, To improve health of tissue, To decrease soft tissue restriction, To increase flexibility/ROM, To improve endurance and To reduce risk of recurrence Therapeutic Exercise to Include: Strength training, Body mechanics, Postural training, Flexibilty training and Dynamic Lumbar Stabilization For the Purpose of:: To decrease pain, To increase ROM, To improve muscle performance and motor function, To improve ability to perform ADL's, To increase tolerance to activity/condition/position, To improve ability of physical actions for home/community/work/leisure, To improve health of tissue, To decrease soft tissue restriction, To increase flexibility/ROM, To improve endurance and To improve balance Re-Evaluation Ending Re-evaluation ending: Please do not hesitate to contact me at [phone] by phone or if you have questions or concerns regarding this new plan of care! Sincerely, Fito Torres, PT, Cert MDT, OCS
--- NOTE | 2023-11-29 11:53 | HP.PTDCSUM ---
Discharge Summary D/C summary: It has been my pleasure to treat ANNE-MARIE DEGROOT referred by Dr. Walter Chang MD, with the diagnosis of ARTHRODEIS STATUS for a total of 13 visit(s). Discharge Date: 11/29/23 Please see the following information for a summary of their discharge status. Subjective Subjective: Doing well overall Pain R hip: Pain Intensity (Out of 10): 0 LBP: Pain Intensity (Out of 10): 0 Overall Improvement % Improvement: 40 Objective Objective/Function: POSTURE: mild forward posture SKIN: GOOD NEURO: denies paresthesia/tingling ,reflexes L3-4,L4-5,L5-S1 1/3 GAIT: reciprocal pattern FLEXIBILITY: hamstrings WFL ,piriformis WFL MMT: quads/hams 4/5 ,(PEAK FORCE) hip flexion right 18.7 ,left 23.2 ,hip abd 10.1 right left 15.8 ,ankle 4/5 LUMBAR ROM: FLEXION WFL ,side glides min ,extension mod loss Goals Goal 1:: Patient to be I with HEP for back Goal Progress: Goal Met Goal 2:: Patient to demonstrate 50% improvement with increase function and less pain. Goal Progress: Goal Met Goal 3:: Patient improve peak force of hips by 5-10# strength to improve gait and ADLS( NEW GOALS) Goal Progress: Goal Met Goal 4:: Patient improve lumbar ROM for function of recovery to tie shoes. Goal Progress: Goal Met Goal 5:: Patient to improve back oswestry score by 5 points to improve QOL Goal Progress: Goal Met Plan Plan: D/C to HEP D/C Information Discharge Comments: HEP d/c sentence: If there are questions or concerns regarding this patient's physical therapy, please feel free to call me at [phone]. Thank you for the referral of this patient. Sincerely, Fito Torres, PT, Cert MDT, OCS Balance/Gait/Functional tests Balance/Special Test Scores Oswestry Low Back Score: 5 Improvement % Improvement: 40
== END 2023-11-29 19:00 | disposition home or self-care (01) ==
LOC: PT 11:30
PROVIDERS: PCP Family Medicine Geriatric Medicine; Visit Provider Orthopaedic Surgery Orthopaedic Surgery of the Spine
DX: Z98.1 Arthrodesis status (principal)
CPT/HCPCS: 97110; 97162; 97530

== ENCOUNTER → 2023-11-29 | Outpatient (CLI) | payer MEDICARE, OTHER, SELFPAY ==
[2023-11-29 10:37] LABS: Absolute Lymphocyte Count 1.12 X10^3/uL (0.83-4.51); Absolute Neutrophil Count 5.5 X10^3/uL (2.0-7.7); Basophil# 0.05 X10^3/uL; Basophil% 0.7 % (0-1); Eosinophil# 0.09 X10^3/uL; Eosinophils% 1.3 % (0-5); Hematocrit 37.2 % (37-47); Hemoglobin 11.7 g/dL (12.0-15.0); Lymphocyte # 1.12 X10^3/ul (0.83-4.51); Lymphocyte % 15.6 % (19-41); Mean Corp Hgb Conc 31.5 g/dL (32-36); Mean Corpuscular Hgb 27.2 pg (27.0-32.0); Mean Corpuscular Volume 86.5 fL (81-99); Mean Platelet Vol. 8.8 fl (6.2-12.0); Monocyte# 0.41 X10^3/uL; Monocyte% 5.7 % (0-10); NRBC Flagged by Analyzer 0 % (0-5); Neutrophil # 5.49 X10^3/uL (2.7-7.7); Neutrophil % 76.6 % (47-70); Platelet Count 289 K/mm3 (150-450); RBC Distribution Width CV 13.2 % (11.6-14.6); RBC Distribution Width SD 41.3 fl (35.1-43.9); White Blood Count 7.2 K/mm3 (4.4-11.0)
[2023-11-29 11:20] LABS: Vitamin D,25 Hydroxy 68.7 ng/mL
[2023-11-29 11:26] LABS: ALB/GLOB Ratio 0.9 RATIO (0.9-2.4); AST(SGOT) 15 U/L (15-37); Alanine Aminotransfer ALT/SGPT 17 U/L (13-56); Albumin, Serum 3.4 g/dL (3.2-5.0); Alkaline Phosphatase 128 U/L (45-117); Anion Gap 5 (5-15); BUN 19 mg/dL (7-18); BUN/Creat Ratio 19.3 RATIO (10-20); Calcium,Total 9.5 mg/dL (8.5-10.1); Chloride 108 mmol/L (98-107); Creatinine, Serum 0.99 mg/dL (0.55-1.02); EST Glomerular Filtration Rate 58 mL/min (>60); Est Glom Filt Rate - Afr Amer 70 mL/min (>60); Globulin 3.9 g/dL (2.2-4.2); Glucose 167 mg/dL (74-106); Potassium 3.7 mmol/L (3.5-5.1); Protein, Total 7.3 g/dL (6.4-8.2); Sodium Level 138 mmol/L (136-145); Thyroid Stim Hormone (TSH) 1.75 uIU/mL (0.358-3.74)
== END | disposition home or self-care (01) ==
LOC: LAB 10:17
PROVIDERS: PCP Family Medicine Geriatric Medicine; Referring Provider Family Medicine Geriatric Medicine; Visit Provider Family Medicine Geriatric Medicine
DX: E11.65 Type 2 diabetes mellitus with hyperglycemia (principal); I10 Essential (primary) hypertension; E55.9 Vitamin D deficiency, unspecified
CPT/HCPCS: 36415; 80053; 82306; 84443; 85025

== ENCOUNTER → 2024-03-17 | Outpatient (CLI) | payer MEDICARE, OTHER, SELFPAY ==
--- NOTE | 2024-03-17 10:29 | RAD_ITS ---
STUDY: X-RAY - LUMBAR SPINE REASON FOR EXAM: Female, 78 years old. Muscle spasms back. TECHNIQUE: 5 view(s) of the lumbar spine were obtained. COMPARISON: December 19, 2023 FINDINGS: Osteopenia with slight reversal of the normal lordosis, unchanged. Marked rotatory levoscoliosis of the upper lumbar spine unchanged. 4 mm of anterolisthesis of L4 on L5 unchanged Posterior fusion from L3 to L5 with intervertebral disc prostheses and cancellus screws projected from the left side laterally at L3 and L4, unchanged in position and alignment. No complicating features identified. Diffuse lower thoracic and to a greater degree lumbosacral facet sclerosis. Marked intervertebral disc space narrowing at T11-T12 and to the greatest degree T12-L1 and L1-L2. Stable loss of height of the L2 vertebral body. Phleboliths. RAD/L/S Spine Min 4 Views IMPRESSION: Osteopenia with stable scoliosis, lower lumbosacral fusion, loss of height of the L1 vertebral body and moderate to marked lower thoracic and lumbosacral spondylosis. Electronically Signed: Favian Hutchinson MD at 13:19 EDT ,
--- NOTE | 2024-03-17 10:29 | RAD_ITS ---
STUDY: X-RAY - PELVIS AND LEFT HIP REASON FOR EXAM: Female, 78 years old. Back muscle spasms. TECHNIQUE: 3 views of the pelvis and hip. COMPARISON: August 22, 2004 FINDINGS: There is a normal gas pattern. Phleboliths. Osteopenia. Lower lumbosacral fusion which is new since the prior study. Normal bilateral iliac wings, sacroiliac joints and visualized sacrum. Normal bilateral superior and inferior pubic rami. Normal pubic symphysis. Normal bilateral ischial tuberosities. Mild arthrosis of both hips. RAD/HIP, UNI W/ Pelvis 2-3 Views IMPRESSION: New lower lumbosacral fusion with mild arthrosis of both hips. Electronically Signed: Favian Hutchinson MD at 11:54 EDT ,
== END | disposition home or self-care (01) ==
LOC: RAD 10:27
PROVIDERS: PCP Family Medicine Geriatric Medicine; Referring Provider Family Medicine Geriatric Medicine; Visit Provider Family Medicine Geriatric Medicine
DX: M62.830 Muscle spasm of back (principal); R51.9 Headache, unspecified; M54.32 Sciatica, left side
CPT/HCPCS: 72110; 73502

== ENCOUNTER → 2024-06-04 | Outpatient (CLI) | payer MEDICARE, OTHER, SELFPAY ==
[2024-06-04 10:07] LABS: Absolute Lymphocyte Count 1.24 X10^3/uL (0.83-4.51); Absolute Neutrophil Count 5.6 X10^3/uL (2.0-7.7); Basophil# 0.05 X10^3/uL; Basophil% 0.7 % (0-1); Eosinophil# 0.16 X10^3/uL; Eosinophils% 2.2 % (0-5); Hematocrit 39.9 % (37-47); Hemoglobin 12.5 g/dL (12.0-15.0); Lymphocyte # 1.24 X10^3/ul (0.83-4.51); Lymphocyte % 16.7 % (19-41); Mean Corp Hgb Conc 31.3 g/dL (32-36); Mean Corpuscular Hgb 25.4 pg (27.0-32.0); Mean Corpuscular Volume 81.1 fL (81-99); Mean Platelet Vol. 8.9 fl (6.2-12.0); Monocyte# 0.33 X10^3/uL; Monocyte% 4.4 % (0-10); NRBC Flagged by Analyzer 0 % (0-5); Neutrophil # 5.64 X10^3/uL (2.7-7.7); Neutrophil % 75.7 % (47-70); Platelet Count 275 K/mm3 (150-450); RBC Distribution Width CV 16.3 % (11.6-14.6); RBC Distribution Width SD 48.5 fl (35.1-43.9); Red Blood Count 4.92 M/mm3 (4.2-5.4); White Blood Count 7.4 K/mm3 (4.4-11.0)
[2024-06-04 10:53] LABS: ALB/GLOB Ratio 0.9 RATIO (0.9-2.4); AST(SGOT) 17 U/L (15-37); Alanine Aminotransfer ALT/SGPT 14 U/L (13-56); Albumin, Serum 3.4 g/dL (3.2-5.0); Alkaline Phosphatase 117 U/L (45-117); Anion Gap 10 (5-15); BUN 17 mg/dL (7-18); BUN/Creat Ratio 13.2 RATIO (10-20); Calcium,Total 9.1 mg/dL (8.5-10.1); Chloride 105 mmol/L (98-107); Creatinine, Serum 1.29 mg/dL (0.55-1.02); EST Glomerular Filtration Rate 43 mL/min (>60); Est Glom Filt Rate - Afr Amer 51 mL/min (>60); Globulin 3.8 g/dL (2.2-4.2); Glucose 302 mg/dL (74-106); Potassium 3.8 mmol/L (3.5-5.1); Protein, Total 7.2 g/dL (6.4-8.2); Sodium Level 138 mmol/L (136-145)
[2024-06-04 12:17] LABS: Vitamin D,25 Hydroxy 42.1 ng/mL
== END | disposition home or self-care (01) ==
PROVIDERS: PCP Family Medicine Geriatric Medicine; Visit Provider Family Medicine Geriatric Medicine
DX: E11.65 Type 2 diabetes mellitus with hyperglycemia (principal); E55.9 Vitamin D deficiency, unspecified; I10 Essential (primary) hypertension
CPT/HCPCS: 36415; 80053; 82306; 84443; 85025

== ENCOUNTER → 2024-09-02 | Outpatient (CLI) | payer MEDICARE, OTHER, SELFPAY ==
[2024-09-02 17:10] LABS: Absolute Lymphocyte Count 1.44 X10^3/uL (0.83-4.51); Absolute Neutrophil Count 7.4 X10^3/uL (2.0-7.7); Basophil# 0.07 X10^3/uL; Basophil% 0.7 % (0-1); Hematocrit 39.4 % (37-47); Hemoglobin 12.9 g/dL (12.0-15.0); Lymphocyte # 1.44 X10^3/ul (0.83-4.51); Lymphocyte % 15.1 % (19-41); Mean Corp Hgb Conc 32.7 g/dL (32-36); Mean Corpuscular Hgb 26.5 pg (27.0-32.0); Mean Corpuscular Volume 80.9 fL (81-99); Mean Platelet Vol. 9.3 fl (6.2-12.0); Monocyte# 0.53 X10^3/uL; Monocyte% 5.5 % (0-10); NRBC Flagged by Analyzer 0 % (0-5); Neutrophil # 7.38 X10^3/uL (2.7-7.7); Neutrophil % 77.4 % (47-70); Platelet Count 241 K/mm3 (150-450); RBC Distribution Width CV 14.5 % (11.6-14.6); RBC Distribution Width SD 42.4 fl (35.1-43.9); Red Blood Count 4.87 M/mm3 (4.2-5.4); White Blood Count 9.6 K/mm3 (4.4-11.0)
[2024-09-02 18:03] LABS: D-Dimer Quantitative (DVT/PE) 5.37 FEU/ug/m (0.27-0.49)
[2024-09-02 19:33] LABS: Anion Gap 16 (5-15); BUN 20 mg/dL (4-19); BUN/Creat Ratio 14.2 RATIO (10-20); Calcium,Total 9.7 mg/dL (7.6-11.0); Carbon Dioxide 19.6 mmol/L (21.0-32.0); Chloride 103 mmol/L (98-108); EST Glomerular Filtration Rate 39 (>60); Glucose 204 mg/dL (70-99); Potassium 4.6 mmol/L (3.3-5.1); Sodium Level 139 mmol/L (133-145)
== END | disposition home or self-care (01) ==
LOC: POLAB3 16:58
PROVIDERS: PCP Family Medicine Geriatric Medicine; Visit Provider Family Medicine Geriatric Medicine
DX: I12.9 Hypertensive chronic kidney disease with stage 1 through stage 4 chronic kidney disease, or unspecified chronic kidney disease (principal); I26.99 Other pulmonary embolism without acute cor pulmonale; N18.31 Chronic kidney disease, stage 3a; R00.0 Tachycardia, unspecified
CPT/HCPCS: 36415; 80048; 85025; 85379

== ENCOUNTER → 2024-09-03 | Outpatient (CLI) | payer MEDICARE, OTHER, SELFPAY ==
--- NOTE | 2024-09-03 10:27 | VDLE_ITS ---
Reason For Study Reason For Study: Swelling RIGHT LEFT GSV is normal. CFV is compressible, spontaneous, phasic, competent, CFV is compressible, spontaneous, phasic, competent and demonstrates normal augmentation. and demonstrates normal augmentation. PTV is compressible. FV is compressible, spontaneous, phasic, competent HX of GSV ablation. and demonstrates normal augmentation. POP V is compressible, spontaneous, phasic, competent Acute deep vein thrombosis is noted in the FV, PopV, and demonstrates normal augmentation. T/P Trunk, Peroneal V. It is dilated and T/P Trunk is compressible. NONCOMPRESSIBLE. PTV is compressible. RT PerV is compressible. Procedure This is a venous duplex using B-mode, color flow and spectral Doppler. Exam performed in department. A preliminary report was called and/or faxed to Clayton Mcleod MD. VL/Venous Duplex US - [facility] Extrem Interpretation Summary Acute deep vein thrombosis noted in the left femoral vein, popliteal vein, tibi operoneal trunk vein, peroneal vein. Deep veins of the right lower extremity are patent and compressible segmentally . There is no evidence of right lower extremity deep vein thrombosis. The right great saphenous vein appears patent a nd compressible segmentally. Ordering Physician: Clayton Mcleod Chi Referring Physician: Clayton Mcleod Chi Performed By: Cirilo Quan RVT and Student
--- NOTE | 2024-09-03 10:31 | CT_ITS ---
PROCEDURE: CTA CHEST W/WO CONTRAST REASON FOR EXAM: Bilateral lower extremity swelling worse on the left side. Shortness of breath. TECHNIQUE: CTA imaging of the chest with intravenous contrast. 3D reconstructions. CONTRAST: 100 mL of Isovue 300. COMPARISON: None. FINDINGS: Hardware: None. There is a 4.6 cm x 4.9 cm x 4.7 cm cyst in the upper midportion of the spleen. There is also evidence of a 1.6 cm hypodensity in the inferior aspect of the spleen this may represent a complex cyst Lymph nodes: No mediastinal hilar or axillary lymphadenopathy. Heart: Normal heart size. No pericardial effusion. RV/LV Diameter Ratio: N/A Thoracic Aorta: No thoracic aortic aneurysm or dissection. Mild atherosclerotic plaque formation. Pulmonary Vessels: Tiny nonocclusive filling defects are seen in the distal portion of the right pulmonary artery and right inter lobar artery extending to the right lower pulmonary arterial branches. Tiny filling defect is also seen at the origin of the right upper lobe pulmonary artery. Most Proximal Level of Embolus (if embolus present): N/A Lungs and Airways: Mild emphysematous changes are present. Mild increased markings in the lingular segment of the left upper lobe suggestive of scarring. Pleura: No pleural effusion. No pneumothorax. Upper Abdomen: Is a 4.6 cm x 4.9 cm x 4.7 cm cyst in the upper midportion of the spleen. There is also evidence of a 1.6 cm hypodensity in the inferior aspect of the spleen this may represent a complex cyst. Bones: Degenerative changes of the thoracic spine. CT/CTA Chest W/WO Contrast IMPRESSION: Nonocclusive filling defects are seen in the distal portion of the right pulmon alexander artery and right interlobar artery extending into branches of the right lower lobe pulmonary artery. Tiny filling defects a lso seen at the origin of the right upper lobe pulmonary artery. One or more dose reduction techniques were used (e.g., Automated exposure contr ol, adjustment of the mA and/or kV according to patient size, use of iterative reconstruction technique). Reading Location: [id number]
== END | disposition home or self-care (01) ==
LOC: CVS 10:23
PROVIDERS: PCP Family Medicine Geriatric Medicine; Referring Provider Family Medicine Geriatric Medicine; Visit Provider Family Medicine Geriatric Medicine
DX: I82.409 Acute embolism and thrombosis of unspecified deep veins of unspecified lower extremity (principal); I26.99 Other pulmonary embolism without acute cor pulmonale; R22.43 Localized swelling, mass and lump, lower limb, bilateral
CPT/HCPCS: 71275; 93970; Q9967; A4216

== ENCOUNTER → 2024-09-04 | Outpatient (CLI) | payer MEDICARE, OTHER, SELFPAY | END | disposition home or self-care (01) | LOC: LAB.FUTURE 15:35 → LAB 15:35 | PROVIDERS: PCP Family Medicine Geriatric Medicine; Referring Provider Family Medicine Geriatric Medicine; Visit Provider Family Medicine Geriatric Medicine | DX: I26.99 Other pulmonary embolism without acute cor pulmonale (principal); I82.409 Acute embolism and thrombosis of unspecified deep veins of unspecified lower extremity | CPT/HCPCS: 36415 ==

== ENCOUNTER → 2024-10-16 | Outpatient (CLI) | payer MEDICARE, OTHER, SELFPAY ==
--- NOTE | 2024-10-16 09:10 | VDLE_ITS ---
Reason For Study Reason For Study: Pain RIGHT LEFT GSV is normal. CFV is compressible, spontaneous, phasic, competent, CFV is compressible, spontaneous, phasic, competent and demonstrates normal augmentation. and demonstrates normal augmentation. PTV is compressible. FV is compressible, spontaneous, phasic, competent LT PerV is compressible. and demonstrates normal augmentation. Acute deep vein thrombosis is noted in the FV, PopV, POP V is compressible, spontaneous, phasic, competent and T/P Trunk. It is dilated and NONCOMPRESSIBLE. and demonstrates normal augmentation. HX of GSV ablation. T/P Trunk is compressible. PTV is compressible. RT PerV is compressible. Procedure This is a venous duplex using B-mode, color flow and spectral Doppler. Exam performed in department. VL/Venous Duplex US - [facility] Extrem Interpretation Summary Acute deep vein thrombosis noted in the left femora vein, poplitael vein, tibio peroneal trunk vein. Deep veins of the right lower extremity are patent and compressible segmentally . There is no evidence of right lower extremity deep vein thrombosis. The right great saphenous vein appears patent a nd compressible segmentally. Ordering Physician: Clayton Mcleod Chi Referring Physician: Clayton Mcleod Chi Performed By: Licha Linn RVT
--- NOTE | 2024-10-16 09:11 | CT_ITS ---
PROCEDURE: CTA CHEST W/WO CONTRAST 10/16/2024 REASON FOR EXAM: PULM EMBOLISM Lower leg DVT TECHNIQUE: CTA axial imaging of the chest with intravenous contrast. Coronal and Sagittal reconstruction series were provided. Maximum intensity projection (MIPs) were provided. PATIENT PREPARATION: Per protocol One or more dose reduction techniques were used (e.g., Automated exposure control, adjustment of the mA and/or kV according to patient size, use of iterative reconstruction technique). RADIATION DOSE SUMMARY: DLP: 478.16 mGycm COMPARISON: 09/03/2024 # of known CTs in the past 12 months: 1 # of known Cardiac Nuclear Medicine Studies in the past 12 months: 0 FINDINGS: Lymph nodes: No bulky lymphadenopathy. Heart: Normal heart size. RV/LV Diameter Ratio: Subjectively normal. Thoracic Aorta: No thoracic aortic aneurysm or dissection. Pulmonary Vessels: No evidence of acute pulmonary emboli through the major subsegmental branches. Lungs and Airways: Mild emphysematous changes are present. 7.0 x 6.0 x 4.7 mm left lower lobe subpleural nodule. No focal consolidation. Pleura: No pleural effusion. No pneumothorax. Upper Abdomen: Splenic lesions redemonstrated. Bones: Degenerative changes of the thoracic spine. CT/CTA Chest W/WO Contrast IMPRESSION: Yellow Alert: Slight increase in size of left lower lobe subpleural nodule comp ared to 09/03/2024 raises suspicion for lung cancer. Right pulmonary artery emboli no longer demonstrated. No new pulmonary artery f illing defect. No acute abnormal finding in the chest. Reading Location: [facility]
[2024-10-16 10:20] LABS: CREATININE FINGERSTICK < 1.0 mg/dL (0.55-1.02); EGFR FINGERSTICK > 60.0000 mL/min (>60)
== END | disposition home or self-care (01) ==
LOC: CVS 09:06
PROVIDERS: PCP Family Medicine Geriatric Medicine; Referring Provider Family Medicine Geriatric Medicine; Visit Provider Family Medicine Geriatric Medicine
DX: I26.99 Other pulmonary embolism without acute cor pulmonale (principal); R22.43 Localized swelling, mass and lump, lower limb, bilateral; M79.605 Pain in left leg
CPT/HCPCS: 71275; 93970; Q9967; A4216

== ENCOUNTER → 2024-11-11 | Outpatient (CLI) | payer MEDICARE, OTHER, SELFPAY ==
--- NOTE | 2024-11-11 07:00 | PET_ITS ---
PROCEDURE: PET/CT TUMOR BASE -THIGH INIT 11/11/2024 REASON FOR EXAM: 79 y/o F with ABNORMAL FINDINGS IN LUNG FIELD TECHNIQUE: Following the intravenous administration of radionucleotide, image acquisition on a dedicated PET/CT unit was performed at one hour post injection. A preliminary CT study encompassing the Skull base, neck, chest, abdomen, pelvis, and proximal thighs was performed for purposes of attenuation correction and anatomic localization. The proximal thighs were also included. The patient's blood glucose level was 198 mg/dL (allowable range: 50-180 mg/dL). RADIOPHARMACEUTICAL: 11.86 mCi 18F-FDG (Fluorodeoxyglucose F18) IV was injected into he patient. RADIATION DOSE SUMMARY: Effective Dose: Approximately 7 mSv for a standard whole-body PET scan Organ Doses: Varies by organ, with higher doses typically to the bladder, liver, and brain COMPARISON: COMPARISON FROM CT, PET OR OTHER PERTINENT EXAMS: Thoracic CT of 10/16/2024. FINDINGS: Physiologic uptake: There may be expected metabolic uptake within the brain, tongue and floor of the mouth and larynx/vocal cords, heart, jeanette (many normal individuals have hilar uptake in less than 3 nodes with mildly avid hilar nodes less than 2.7 SUV), liver and spleen, system, and GI tract and symmetric muscle uptake. FDG AVID AND NON-AVID LESIONS. Reported avid SUV values (g/mL*) are maximum SUV. NECK: There are no significant neck abnormalities. CHEST: Chest wall- There are no significant chest wall abnormalities. Axilla- There are no significant axillary abnormalities. Lung parenchyma- At the recently described subpleural left lower lobe nodule, no hypermetabolic activity is seen. No focus of abnormal thoracic metabolic activity is seen. Mediastinum- There are no significant hilar or mediastinal adenopathy. Pleura- There are no significant pleural abnormalities. ABDOMEN: Stomach- No significant abnormalities. Liver- No significant abnormalities. Spleen-the previously noted splenic lesion shows hypermetabolism. Pancrease- No significant abnormalities. Kidneys- No significant abnormalities. Bowel- Normal bowel activity. Spine- No significant abnormalities. PELVIS: Bowel- Moderate sigmoid diverticulosis is noted. Normal physiologic bowel activity is identified. Masses- There are no pelvic masses. Bones- Prior spine surgery with associated metallic artifact is noted. With the use of bone window settings, there are no osteolytic or osteoblastic lesions. There are no FDG avid lesions within the visualized portion of the axial skeleton. PET/PET/CT Tumor Base -Thigh Init IMPRESSION: FDG avid- No significant avid lesions. Suspicious- No significant suspicious abnormalities. Other: Moderate sigmoid diverticulosis. Hypometabolic appearance of the previously noted splenic lesion. Please note the low-dose CT scan was performed to facilitate PET image reconstr uction and anatomic localization and does not replace a diagnostic CT. Any diagnostic CT requested and performed at the time of the PET will be reported separately. Reading Location: [place] [id number]
== END | disposition home or self-care (01) ==
PROVIDERS: PCP Family Medicine Geriatric Medicine; Referring Provider Family Medicine Geriatric Medicine; Visit Provider Family Medicine Geriatric Medicine
DX: R91.8 Other nonspecific abnormal finding of lung field (principal)
CPT/HCPCS: 78815; A9552

== ENCOUNTER → 2024-11-14 | Outpatient (CLI) | payer MEDICARE, OTHER, SELFPAY ==
--- NOTE | 2024-11-14 10:11 | VDLE_ITS ---
Reason For Study Reason For Study: Left leg pain RIGHT LEFT CFV is compressible, spontaneous, phasic, competent CFV is compressible, spontaneous, phasic, competent, and demonstrates normal augmentation. and demonstrates normal augmentation. Procedure PTV is compressible. This is a venous duplex using B-mode, color flow and LT PerV is compressible. spectral Doppler. FV, PopV and T/P Trunk are partially noncompressible Exam performed in department. with minimal venous flow noted. Compared to 10/16/24. GSV is absent, hx of ablation. A preliminary report was called and/or faxed to Dr. Mcleod. VL/Venous Duplex US, Unilateral Interpretation Summary Chronic deep vein thrombosis noted in the left femora vein, poplitael vein, tib ioperoneal trunk vein. Ordering Physician: Clayton Mcleod Chi Referring Physician: Clayton Mcleod Chi Performed By: Julia Guillen RVT
== END | disposition home or self-care (01) ==
LOC: CVS 10:05
PROVIDERS: PCP Family Medicine Geriatric Medicine; Referring Provider Family Medicine Geriatric Medicine; Visit Provider Family Medicine Geriatric Medicine
DX: I82.402 Acute embolism and thrombosis of unspecified deep veins of left lower extremity (principal); M79.89 Other specified soft tissue disorders; M79.605 Pain in left leg
CPT/HCPCS: 93971

== ENCOUNTER → 2024-12-04 | Outpatient (CLI) | payer MEDICARE, OTHER, SELFPAY ==
[2024-12-04 11:38] LABS: Absolute Lymphocyte Count 0.99 X10^3/uL (0.83-4.51); Absolute Neutrophil Count 5.7 X10^3/uL (2.0-7.7); Basophil# 0.03 X10^3/uL; Basophil% 0.4 % (0-1); Eosinophil# 0.11 X10^3/uL; Eosinophils% 1.5 % (0-5); Hematocrit 37.5 % (37-47); Hemoglobin 11.8 g/dL (12.0-15.0); Lymphocyte # 0.99 X10^3/ul (0.83-4.51); Lymphocyte % 13.6 % (19-41); Mean Corp Hgb Conc 31.5 g/dL (32-36); Mean Corpuscular Hgb 25.2 pg (27.0-32.0); Mean Corpuscular Volume 80.1 fL (81-99); Mean Platelet Vol. 9.1 fl (6.2-12.0); Monocyte# 0.44 X10^3/uL; NRBC Flagged by Analyzer 0 % (0-5); Neutrophil # 5.69 X10^3/uL (2.7-7.7); Neutrophil % 78.1 % (47-70); Platelet Count 258 K/mm3 (150-450); RBC Distribution Width CV 14.6 % (11.6-14.6); RBC Distribution Width SD 42.3 fl (35.1-43.9); Red Blood Count 4.68 M/mm3 (4.2-5.4); White Blood Count 7.3 K/mm3 (4.4-11.0)
[2024-12-04 12:37] LABS: ALB/GLOB Ratio 1.3 RATIO (0.9-2.4); AST(SGOT) 25 U/L (<=31); Alanine Aminotransfer ALT/SGPT 18 U/L (<=34); Alkaline Phosphatase 141 U/L (35-104); Anion Gap 13 (5-15); BUN 20 mg/dL (4-19); BUN/Creat Ratio 20.1 RATIO (10-20); Calcium,Total 9.5 mg/dL (7.6-11.0); Carbon Dioxide 23.3 mmol/L (21.0-32.0); Chloride 104 mmol/L (98-108); Creatinine, Serum 0.97 mg/dL (0.70-1.20); EST Glomerular Filtration Rate 60 (>60); Globulin 3.2 g/dL (2.2-4.2); Glucose 180 mg/dL (70-99); Protein, Total 7.2 g/dL (5.9-8.4); Sodium Level 139 mmol/L (133-145); Total Bilirubin 0.36 mg/dL (0.00-1.30); Vitamin D,25 Hydroxy 55.9 ng/mL (30-100)
--- OUTSIDE RECORDS SUMMARY | 2024-12-04 20:17 | XMS RPT_ITS | CCD ---
Author Organization [facility] [place] Care Team Providers Care Biztalk Software Developer Name Role Phone Dr. Steff Tobias Chi Primary Care Provider Harsha, Dr. Steff Ramos Referring Provider ANNE MARIE Loyd Attending Provider Harsha, Dr. Steff Ramos Primary Care Provider [phone] Harsha, Dr. Steff Ramos Referring Provider Dr. Walter Chang Attending Provider 1([phone] Manuel Peguero Attending Provider 1([phone] Steff Tobias Chi Primary Care Provider [phone] Harsha, Dr. Steff Ramos Referring Provider Dr. Walter Chang Attending Provider 1([facility])[phone] Manuel Peguero Attending Provider [phone] [place] Attending Provider Dr. Walter Chang Referring Provider 1([facility])[phone] Walter Chang Admit Provider Dr. Walter Chang Other Provider Dr. Margarito Figueroa Other Provider Dr. Lenin Greer Attending Provider [phone] Dr. Lenin Greer Other Provider 1([facility])[phone] Dr. Margarito Aleman Attending Provider Dr. Margarito Shook Other Provider RADHA CADENA DO Admitting Unavailable STEFF TOBIAS MD Referring Unavailable STEFF TOBIAS MD Consulting Unavailable RADHA CADENA DO Attending Unavailable RADHA CADENA DO Primary Care Unavailable PROVIDER, UNKNOWN Consulting Unavailable PROVIDER, UNKNOWN Consulting Unavailable Harsha , Dr. Steff Ramos Primary Care Provider [phone] Harsha MATSON, Dr. Steff Ramos Attending Provider Harsha MATSON, Dr. Steff Ramos Referring Provider Dr. Margarito Aleman MD Attending Provider Bernardo MATSON, Dr. Watson Attending Provider Marielena MATSON, Dr. Jackson Attending Provider Harsha MATSON, Dr. Steff Ramos Primary Care Provider Harsha MATSON, Dr. Steff Ramos Attending Provider Harsha, Steff Chi Attending Unavailable Harsha, Steff Chi Referring Unavailable Harsha, Steff Chi Primary Care Unavailable Harsha, Steff Chi Primary Care Unavailable Harsha, Steff Chi Attending Unavailable Harsha, Steff Chi Referring Unavailable Harsha, Steff Chi Attending Unavailable Harsha, Steff Chi Primary Care Unavailable Margarito Aleman Attending Unavailable Harsha, Steff Chi Referring Unavailable Harsha, Steff Chi Primary Care Unavailable Hasrha, Steff Chi Referring Unavailable Harhsa, Steff Chi Primary Care Unavailable Flora Banks Attending Unavailable Harsha, Steff Chi Primary Care Unavailable [place] Attending Unavailable Harsha, Steff Chi Referring Unavailable LoveMargarito petersen Attending Unavailable Harsha, Steff Chi Referring Unavailable Harsha, Steff Chi Primary Care Unavailable Walter Chang Attending Unavailable Harsha, Steff Chi Primary Care Unavailable Harsha, Steff Chi Referring Unavailable Harsha, Steff Chi Primary Care Unavailable Manuel Peguero Attending Unavailable Walter Chang Attending Unavailable Harsha, Steff Chi Primary Care Unavailable Harsha, Steff Chi Referring Unavailable Manuel Peguero Attending Unavailable Harsha, Steff Chi Primary Care Unavailable Harsha, Steff Chi Attending Unavailable Harsha, Steff Chi Primary Care Unavailable Harsha, Steff Chi Referring Unavailable Harsha, Steff Chi Primary Care Unavailable Harsha, Steff Chi Attending Unavailable Harsha, Steff Chi Referring Unavailable Harsha, Steff Chi Attending Unavailable Harsha, Steff Chi Primary Care Unavailable Harsha, Steff Chi Attending Unavailable Harsha, Steff Chi Primary Care Unavailable Harsha, Steff Chi Referring Unavailable Harsha, Steff Chi Attending Unavailable Harsha, Steff Chi Referring Unavailable Harsha, Steff Chi Primary Care Unavailable Allergies Allergy Classification Reported Allergen(s) Allergy Type Date of Onset Reaction(s) Facility (15 sources) Amoxicillin; Translations: [amoxicillin trihydrate] Drug Allergy 05-06-2014 [facility] (15 sources) potassium clavulanate; Translations: [potassium clavulanate] Allergy to substance 05-06-2014 [facility] (1 source) Amoxicillin / Clavulanate Drug Allergy [facility] Medications Current Medications Medication Drug Class(es) Dates Sig (Normalized) Sig (Original) acetaminophen 500 mg oral tablet (6 sources) Start: 4 take 1 tablet by mouth every six hours Acetaminophen 500 mg Tablet Active 500 mg PO EVERY 6 HOURS 28 7 September 20, 2023 12:00am apixaban 5 mg oral tablet (5 sources) Factor Xa Inhibitor Start: 5 take 1 tablet by mouth twice daily Apixaban (Eliquis) 5 mg tablet Active 5 mg PO TWICE A DAY September 12, 2024 12:00am cholecalciferol 0.025 mg oral capsule (5 sources) Vitamin D Start: 5 take 1 capsule by mouth once daily Cholecalciferol (Vitamin D3) 25 mcg (1,000 unit) capsule Active 25 ug PO daily September 12, 2024 12:00am Medtroryprogesterone (14 sources) Start: 4 take 5 mg by mouth once daily Medtroryprogesterone Active 5 MG PO DAILY May 06, 2014 4:56pm Start: 05-06-2014 End: 02-01-2023 take 5 mg by mouth once daily Medtroryprogesterone Discontinued 5 mg P O DAILY May 06, 2014 1:00am February 01, 2023 10:15am Start: 05-06-2014 End: 02-01-2023 take 5 mg by mouth once daily Medtroryprogesterone Discontinued 5 MG P O DAILY May 06, 2014 12:00am February 01, 2023 9:15am Start: 05-06-2014 End: 02-01-2023 take 5 mg by mouth once daily Medtroryprogesterone Discontinued 5 MG P O DAILY May 06, 2014 1:00am February 01, 2023 10:15am Start: 05-06-2014 take 5 mg by mouth o nce daily Medtroryprogesterone Active 5 MG PO TAMMY Y May 06, 2014 1:00am Start: 05-06-2014 take 5 mg by mouth o nce daily Medtroryprogesterone Active 5 MG PO TAMMY Y May 06, 2014 12:00am metFORMIN hydrochloride 500 mg oral tablet (20 sources) Biguanide Start: 06-01-2023 take 2 tablets by mouth twice daily Metformin 500 mg tablet Active 1000 mg PO TWICE A DAY June 01, 2023 1:00am Start: 06-01-2023 take 1000 mg by mout h twice daily Metformin Active 1000 MG PO TWICE A DAY June 01, 2023 1:00am Start: 06-01-2023 take 500 mg by mouth once tammy y Metformin Active 500 MG PO DAILY June 01, 2023 12:00am Start: 06-01-2023 Metformin Acti ve MG PO June 01, 2023 12:00am Start: 05-06-2014 End: 06-01-2023 take 1 tablet by mouth twice daily at mealtime Metformin 850 MG tablet Discontinued 850 mg PO TWICE DAILY WITH MEALS May 06, 2014 1:00am June 01, 2023 1:56pm pantoprazole 40 mg delayed release oral tablet (14 sources) Proton Pump Inhibitor Start: 05-06-2014 take 1 tablet by mouth once daily Pantoprazole 40 MG tablet Active 40 mg PO DAILY May 06, 2014 1:00am simvastatin 80 mg oral tablet (14 sources) HMG-CoA Reductase Inhibitor Start: 05-06-2014 take 1 tablet by mouth at bedtime Simvastatin 80 MG tablet Active 80 mg PO AT BEDTIME May 06, 2014 1:00am valsartan 320 mg oral tablet (9 sources) Angiotensin 2 Receptor Nancy Start: 06-01-2023 take 1 tablet by mouth once daily Valsartan 320 mg tablet Active 320 mg PO DAILY June 01, 2023 1:00am Start: 06-01-2023 Valsartan Acti ve MG PO June 01, 2023 12:00am Completed/Discontinued Medications Medication Drug Class(es) Dates Sig (Normalized) Sig (Original) acetaminophen 325 mg / HYDROcodone bitartrate 5 mg oral tablet (14 sources) Opioid Agonist Start: 05-07-2014 End: 06-01-2023 Hydrocodone-Acetami nophen 1 TABLET tablet Discontinued 1 - 2 {tbl} PO EVERY 4 HOURS NEEDED as needed for Pain May 07, 2014 1:00am June 01, 2023 1:57pm Start: 05-07-2014 End: 06-01-2023 take 1 tablet by mouth every four hours as needed Hydrocodone-Acetaminophen Discontinued 1 - 2 TABLET PO EVERY 4 HOURS NEEDED May 07, 2014 1:00am June 01, 2023 1:57pm baclofen 10 mg oral tablet (9 sources) gamma-Aminobutyric Acid-ergic Agonist Start: 06-01-2023 End: 06-28-2023 Baclofen 10 mg tablet Discontinued mg PO June 01, 2023 1:00am June 28, 2023 12:33pm Start: 06-01-2023 End: 06-28-2023 Baclofen Discontinued MG PO June 01, 2023 1:00am June 28, 2023 12:33pm chlorthalidone 25 mg oral tablet (10 sources) Thiazide-like Diuretic Start: 02-01-2023 End: 06-01-2023 Chlorthalidone 25 mg tablet Discontinued 12.5 mg PO DAILY 60 February 01, 2023 12:00am June 01, 2023 1:58pm Start: 02-01-2023 End: 06-01-2023 take 12.5 mg by mouth once daily Chlorthalidone Discontinued 12.5 MG PO DAILY 60 February 01, 2023 12:00am June 01, 2023 1:58pm docusate sodium 50 mg / sennosides, nursing home 8.6 mg oral tablet (6 sources) Start: 09-20-2023 End: 09-12-2024 Sennosides-Docusate Sodium (Stool Softener-Stimulant Laxat) 8.6-50 mg Tablet Discontinued 2 {tbl} PO TWICE A DAY as needed for constipation 26 01September 20, 2023 9:15am September 12, 2024 11:30am doxepin hydrochloride 25 mg oral capsule (12 sources) Tricyclic Antidepressant Start: 11-20-2022 End: 06-01-2023 take 1 capsule by mouth once daily Doxepin 25 mg capsule Discontinued 25 mg PO DAILY November 20, 2022 12:00am June 01, 2023 1:57pm estradiol 1 mg oral tablet (20 sources) Estrogen Start: 06-01-2023 End: 09-12-2024 take 1 tablet by mouth once daily Estradiol 1 mg tablet Discontinued 1 mg PO DAILY June 01, 2023 1:00am September 12, 2024 11:29am Start: 05-06-2014 End: 02-01-2023 take 1 tablet by mouth once daily Estradiol 1 MG tablet Discontinued 1 mg PO DAILY May 06, 2014 1:00am February 01, 2023 10:15am gabapentin 100 mg oral capsule (9 sources) Anti-epileptic Agent Start: 06-01-2023 End: 06-28-2023 Gabapentin 100 mg capsule Discontinued mg PO June 01, 2023 1:00am June 28, 2023 12:33pm Start: 06-01-2023 End: 06-28-2023 Gabapentin Discontinued MG P O June 01, 2023 1:00am June 28, 2023 12:33pm lisinopril 10 mg oral tablet (20 sources) Angiotensin Converting Enzyme Inhibitor Start: 02-01-2023 End: 02-01-2023 take 1 tablet by mouth once daily Lisinopril 10 mg tablet Discontinued 10 mg PO DAILY February 01, 2023 12:00am February 01, 2023 10:15am Start: 05-06-2014 End: 11-20-2022 take 1 tablet by mouth once daily Lisinopril 20 MG tablet Discontinued 20 mg PO DAILY May 06, 2014 1:00am November 20, 2022 10:14am medroxyPROGESTERone acetate 5 mg oral tablet (7 sources) Progestin Start: 07-19-2023 End: 09-12-2024 take 1 tablet by mouth once daily Medroxyprogesterone 5 mg tablet Discontinued 5 mg PO DAILY July 19, 2023 1:00am September 12, 2024 11:29am meloxicam 15 mg oral tablet (6 sources) Nonsteroidal Anti-inflammator y Drug Start: 09-20-2023 End: 11-08-2023 take 1 tablet by mouth once daily Meloxicam 15 mg Tablet Discontinued 15 mg PO DAILY September 20, 2023 12:00am November 08, 2023 10:10am methocarbamol 500 mg oral tablet (6 sources) Muscle Relaxant Start: 09-20-2023 End: 09-12-2024 Methocarbamol 500 mg Tablet Discontinued 750 mg PO Q8H as needed for Pain/spasms 26 01September 20, 2023 9:14am September 12, 2024 11:30am Start: 09-20-2023 take 750 mg by mouth every eight hours Methocarbamol Active 750 MG PO Q8H 26 01September 20, 2023 9:14am naproxen 500 mg oral tablet (9 sources) Nonsteroidal Anti-inflammatory Drug Start: 06-01-2023 End: 06-28-2023 Naproxen 500 mg tablet Discontinued mg PO June 01, 2023 1:00am June 28, 2023 12:34pm Start: 06-01-2023 End: 06-28-2023 Naproxen Discontinued MG PO June 01, 2023 1:00am June 28, 2023 12:34pm oxyCODONE hydrochloride 5 mg oral tablet (6 sources) Opioid Agonist Start: 09-20-2023 End: 11-08-2023 take 2.5-5 mg by mouth every six hours as needed for pain Oxycodone 5 mg Tablet Discontinued 2.5 - 5 mg PO EVERY 6 HOURS as needed for pain 26 01September 20, 2023 November 08, 2023 10:10am pioglitazone 30 mg oral tablet (6 sources) Peroxisome Proliferator Receptor alpha Agonist, Peroxisome Proliferator Receptor gamma Agonist, Thiazolidinedione Start: 09-04-2023 End: 09-12-2024 take 1 tablet by mouth once daily Pioglitazone (Actos) 30 mg tablet Discontinued 30 mg PO DAILY September 04, 2023 1:00am September 12, 2024 11:30am predniSONE 10 mg oral tablet (9 sources) Start: 06-01-2023 End: 06-28-2023 Prednisone 10 mg tablet Discontinued mg PO June 01, 2023 1:00am June 28, 2023 12:33pm Start: 06-01-2023 End: 06-28-2023 Prednisone Discontinued MG P O June 01, 2023 1:00am June 28, 2023 12:33pm temazepam 30 mg oral capsule (14 sources) Benzodiazepine Start: 05-06-2014 End: 11-20-2022 take 1 capsule by mouth at bedtime as needed Temazepam 30 MG capsule Discontinued 30 mg PO AT BEDTIME NEEDED as needed for Insomnia May 06, 2014 1:00am November 20, 2022 10:14am Problems Active Problems Problem Classification Problem Date Documented Da te Episodic/Chronic Allergic reactions (1 source) Allergy status to other antibiotic agents status; Translations: [Allergy status to other antibiotic agents] Onset: 10-21-2023 Episodic Coronary atherosclerosis and other heart disease (1 source) Atherosclerotic heart disease of [place] coronary artery without angina pectoris; Translations: [Atherosclerotic heart disease of [place] coronary artery without angina pectoris] Onset: 10-21-2023 Chronic Diabetes mellitus with complications (1 source) Type 2 diabetes mellitus with hyperglycemia; Translations: [Type 2 diabetes mellitus with hyperglycemia] Onset: 07-07-2024 Chronic Diabetes mellitus without complication (8 sources) Type 2 diabetes mellitus; Translations: [Type 2 diabetes mellitus without complications] Onset: 10-21-2023 09-18-2023 Chronic E Codes: Struck by; against (1 source) Striking against or struck by other objects, initial encounter; Translations: [Striking against or struck by other objects, initial encounter] Onset: 10-21-2023 Episodic E Codes: Unspecified (1 source) Activity, other specified; Translations: [Activity, other specified] Onset: 10-21-2023 Episodic Essential hypertension (19 sources) Essential hypertension; Translations: [Essential (primary) hypertension] Onset: 10-21-2023 02-01-2023 Chronic Comment on above: will add diuretic to management if stable will re-establish HRTcheck CMP 1-2 weeks from initiating BP medication and f/u in 4 weeks CONTROLLED WITH MED Genitourinary symptoms and ill-defined conditions (15 sources) Mixed urinary incontinence; Translations: [Mixed incontinence] 11-20-2022 Chronic Comment on above: uro-back 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 Hypertension with complications and secondary hypertension (1 source) Hypertensive chronic kidney disease with stage 1 through stage 4 chronic kidney disease, or unspecified chronic kidney disease; Translations: [Hypertensive chronic kidney disease with stage 1 through stage 4 chronic kidney disease, or unspecified chronic kidney disease] Onset: 09-12-2024 Chronic Menopausal disorders (19 sources) Drug therapy status; Translations: [Hormone replacement therapy] 12-01-2022 Episodic Comment on above: discontinue HRT afte r discussing risk factors of UT/PE/DVT risk, pt agrees and verbalizes will stop taking medication today. Relizen from [place] recommended as a non hormonal option. Open wounds of extremities (3 sources) Laceration without foreign body, right ankle, initial encounter; Translations: [Laceration without foreign body, right ankle, initial encounter] Onset: 10-21-2023 Episodic Other acquired deformities (9 sources) Scoliosis of lumbar spine; Translations: [Scoliosis, unspecified] 06-01-2023 Chronic Other acquired deformities (9 sources) Scoliosis, unspecified; Translations: [Scoliosis [and kyphoscoliosis], idiopathic] 06-01-2023 Chronic Other acquired deformities (9 sources) Lumbar spondylolisthesis; Translations: [Spondylolisthesis, lumbar region] 06-01-2023 Episodic Other acquired deformities (8 sources) Spondylolisthesis, lumbar region; Translations: [Acquired spondylolisthesis] 06-01-2023 Episodic Other aftercare (1 source) superintendent terminal (current) use of oral hypoglycemic drugs; Translations: [superintendent terminal (current) use of oral hypoglycemic drugs] Onset: 10-21-2023 Episodic Other aftercare (1 source) Other usp (current) drug therapy; Translations: [Other usp (current) drug therapy] Onset: 10-21-2023 Episodic Other bone disease and musculoskeletal deformities (8 sources) Osteopenia; Translations: [Other specified disorders of bone density and structure, unspecified site] 06-28-2023 Episodic Other bone disease and musculoskeletal deformities (4 sources) Other specified disorders of bone density and structure, unspecified site; Translations: [Disorder of bone and cartilage, unspecified] 06-28-2023 Episodic Other connective tissue disease (11 sources) History of lumbar fusion; Translations: [Arthrodesis status] 09-19-2023 Episodic Other connective tissue disease (2 sources) Arthrodesis status; Translations: [Arthrodesis status] Onset: 09-12-2024 09-20-2023 Episodic Other lower respiratory disease (1 source) Other nonspecific abnormal finding of lung field; Translations: [Other nonspecific abnormal finding of lung field] Onset: 11-15-2024 Episodic Other skin disorders (14 sources) Disorder of hand; Translations: [Disorder of the skin and subcutaneous tissue, unspecified] 03-30-2020 Episodic Phlebitis; thrombophlebitis and thromboembolism (2 sources) Acute embolism and thrombosis of unspecified deep veins of left lower extremity; Translations: [Acute embolism and thrombosis of unspecified deep veins of unspecified lower extremity] Onset: 09-15-2024 Episodic Pulmonary heart disease (1 source) Other pulmonary embolism without acute cor pulmonale; Translations: [Other pulmonary embolism without acute cor pulmonale] Onset: 10-21-2024 Episodic Past or Other Problems Problem Classification Problem Date Documented Da te Episodic/Chronic Spondylosis; intervertebral disc disorders; other back problems (1 source) Sciatica, left side; Translations: [Sciatica, left side] Onset: 04-08-2024 Episodic Results Test Name Value Interpretation Reference Range Facility Venous duplex ultrasound rep ortOrdered By: Margarito Aleman on 11-17-2024 US Vein [facility] [address] [place] [address] Venous Duplex US, Unilateral 11/14/24 1018 MR#: [id number] Acct: [id number] Name: DEANN DEGROOT Rep #:[id number] : 1945 79 From: Margarito Boss Attending Dr: Dr. Steff Tobias MD Status: REG CLI Ordering Dr: Steff Tobias MD Date: Location: CVS Sex: F C Admitted: Reason For Study Reason For Study: Left leg pain RIGHT LEFT CFV is compressible, spontaneous, phasic, competent CFV is compressible, spontaneous, phasic, competent, and demonstrates normal augmentation. and demonstrates normal augmentation. Procedure PTV is compressible. This is a venous duplex using B-mode, color flow and LT PerV is compressible. spectral Doppler. FV, PopV and T/P Trunk are partially noncompressible Exam performed in department. with minimal venous flow noted. Compared to 10/16/24. GSV is absent,hx of ablation. A preliminary report was called and/or faxed to Dr. Tobias. VL/Venous Duplex US, Unilateral Interpretation Summary Chronic deep vein thrombosis noted in the left femora vein, poplitael vein, tibioperoneal trunk vein. Ordering Physician: Steff Tobias Chi Referring Physician: Steff Tobias Chi Performed By: Julia Guillen RVT 11/17/24 1042 Date _ Margarito Aleman MD CC: Dr. Steff Tobias MD ~ Date Dictated: 11/14/24 1018 Date Transcribed: 11/17/24 104 Cotton Bag Sewer: Signed [facility] Work Phone: Venous Duplex US, Unilateral on 11-14-2024 Venous Duplex US, Unilateral [facility] [address] [place] [address] Venous Duplex US, Unilateral 11/14/24 1018 MR#: [id number] Acct: [id number] Name: DEANN DEGROOT Rep #: [id number] : 1945 79 From: Margarito Aleman MD Attending Dr: Dr. Steff Tobias MD Status: REG CLI Ordering Dr: Steff Tobias MD Date: 11/14/24 Location: CVS Sex: F C Admitted: Reason For Study Reason For Study: Left leg pain RIGHT LEFT CFV is compressible, spontaneous, phasic, competent CFV is compressible, spontaneous, phasic, competent, and demonstrates normal augmentation. and demonstrates normal augmentation. Procedure PTV is compressible. This is a venous duplex using B-mode, color flow and LT PerV is compressible. spectral Doppler. FV, PopV and T/P Trunk are partially noncompressible Exam performed in department. with minimal venous flow noted. Compared to 10/16/24. GSV is absent, hx of ablation. A preliminary report was called and/or faxed to Dr. Tobias. VL/Venous Duplex US, Unilateral Interpretation Summary Chronic deep vein thrombosis noted in the left femora vein, poplitael vein, tibioperoneal trunk vein. Ordering Physician: Steff Tobias Chi Referring Physician: Steff Tobias Chi Performed By: Julia Guillen, RVT 11/17/24 1042 Date Margarito Aleman MD CC: Dr. Steff Tobias MD Date Dictated: 11/14/24 1018 Date Transcribed: 11/17/24 104 Cotton Bag Sewer: Signed [facility] PET/CT Tumor Base -Thigh Ini ton 11-11-2024 PET/CT Tumor Base -Thigh [facility] [address] [place] [address] [id number] PET/CT Tumor Base -Thigh Init MR#: [id number] Acct: [id number] Name: DEANN DEGROOT Rep #: [id number] : 1945 F 79 From: Radha Boss PCP: Dr. Steff Tobias MD Status: [facility] Study: PET/CT Tumor Base -Thigh Init Date of Exam: Exam# [id number] Ordering Dr: Steff Tobias MD PROCEDURE: PET/CT TUMOR BASE -THIGH INIT 11/11/2024 REASON FOR EXAM: 79 y/o F with ABNORMAL FINDINGS IN LUNG FIELD TECHNIQUE: Following the intravenous administration of radionucleotide, image acquisition on a dedicated PET/CT unit was performed at one hour post injection. A preliminary CT study encompassing the Skull base, neck, chest, abdomen, pelvis, and proximal thighs was performed for purposes of attenuation correction and anatomic localization. The proximal thighs were also included. The patient's blood glucose level was 198 mg/dL (allowable range: 50-180 mg/dL). RADIOPHARMACEUTICAL: 11.86 mCi 18F-FDG (Fluorodeoxyglucose F18) IV was injected into he patient. RADIATION DOSE SUMMARY: Effective Dose: Approximately 7 mSv for a standard whole-body PET scan Organ Doses: Varies by organ, with higher doses typically to the bladder, liver, and brain COMPARISON: COMPARISON FROM CT, PET OR OTHER PERTINENT EXAMS: Thoracic CT of 10/16/2024. FINDINGS: Physiologic uptake: There may be expected metabolic uptake within the brain, tongue and floor of the mouth and larynx/vocal cords, heart, jeanette (many normal individuals have hilar uptake in less than 3 nodes with mildly avid hilar nodes less than 2.7 SUV), liver and spleen, system, and GI tract and symmetric muscle uptake. FDG AVID AND NON-AVID LESIONS. Reported avid SUV values (g/mL*) are maximum SUV. NECK: There are no significant neck abnormalities. CHEST: Chest wall- There are no significant chest wall abnormalities. Axilla- There are no significant axillary abnormalities. Lung parenchyma- At the recently described subpleural left lower lobe nodule, no hypermetabolic activity is seen. No focus of abnormal thoracic metabolic activity is seen. Mediastinum- There are no significant hilar or mediastinal adenopathy. Pleura- There are no significant pleural abnormalities. ABDOMEN: Stomach- No significant abnormalities. Liver- No significant abnormalities. Spleen-the previously noted splenic lesion shows hypermetabolism. Pancrease- No significant abnormalities. Kidneys- No significant abnormalities. Bowel- Normal bowel activity. Spine- No significant abnormalities. PELVIS: Bowel- Moderate sigmoid diverticulosis is noted. Normal physiologic bowel activity is identified. Masses- There are no pelvic masses. Bones- Prior spine surgery with associated metallic artifact is noted. With the use of bone window settings, there are no osteolytic or osteoblastic lesions. There are no FDG avid lesions within the visualized portion of the axial skeleton. PET/PET/CT Tumor Base -Thigh Init IMPRESSION: FDG avid- No significant avid lesions. Suspicious- No significant suspicious abnormalities. Other: Moderate sigmoid diverticulosis. Hypometabolic appearance of the previously noted splenic lesion. Please note the low-dose CT scan was performed to facilitate PET image reconstruction and anatomic localization and does not replace a diagnostic CT. Any diagnostic CT requested and performed at the time of the PET will be reported separately. Reading Location: [facility] CC: Dr. Steff Tobias MD Cotton Bag Sewer: Signed Normal [facility] Positron emission tomography scan reportOrdered By: Radha Nunez on 11-11-2024 PT Unspecified body region [facility] Imaging Services [address] [place] [address] PET/CT Tumor Base -Thigh Init MR#: [id number] Acct: [id number] Name: DEANN DEGROOT Rep #: [id number] : 1945 F 79 From: David Nunez MD PCP: Dr. Steff Tobias MD Status: REG C LI Study:PET/CT Tumor Base -Thigh Init Date of E xam: 11/11/24 Exam# [id number] Ordering Dr: Steff Tobias MD PROCEDURE: PET/CT TUMOR BASE -THIGH INIT 11/11/2024 REASON FOR EXAM: 79 y/o F with ABNORMAL FINDINGS IN LUNG FIELD TECHNIQUE: Following the intravenous administration of radionucleotide, image acquisition on a dedicated PET/CT unit was performed at one hour post injection. A preliminary CT study encompassing the Skull base, neck, chest, abdomen, pelvis, and proximal thighs was performed for purposes of attenuation correction and anatomic localization. The proximal thighs were also included. The patient's blood glucose level was 198 mg/dL (allowable range: 50-180 mg/dL). RADIOPHARMACEUTICAL: 11.86 mCi 18F-FDG (Fluorodeoxyglucose F18) IV was injected into he patient. RADIATION DOSE SUMMARY: Effective Dose: Approximately 7 mSv for a standard whole-body PET scan Organ Doses: Varies by organ, with higher doses typically to the bladder, liver,and brain COMPARISON: COMPARISON FROM CT, PET OR OTHER PERTINENT EXAMS: Thoracic CT of 10/16/2024. FINDINGS: Physiologic uptake: There may be expected metabolic uptake within the brain, tongue and floor of the mouth and larynx/vocal cords, heart, jeanette (many normal individuals have hilar uptake in less than 3 nodes with mildly avid hilar nodes less than 2.7 SUV), liver and spleen, system, and GI tract and symmetric muscle uptake. FDG AVID AND NON-AVID LESIONS. Reported avid SUV values (g/mL*) are maximum SUV. NECK: There are no significant neck abnormalities. CHEST: Chest wall- There are no significant chest wall abnormalities. Axilla- There are no significant axillary abnormalities. Lung parenchyma- At the recently described subpleural left lower lobe nodule, no hypermetabolic activity is seen. No focus of abnormal thoracic metabolic activity is seen. Mediastinum- There are no significant hilar or mediastinal adenopathy. Pleura- There are no significant pleural abnormalities. ABDOMEN: Stomach- No significant abnormalities. Liver- No significant abnormalities. Spleen-the previously noted splenic lesion shows hypermetabolism. Pancrease- No significant abnormalities. Kidneys- No significant abnormalities. Bowel- Normal bowel activity. Spine- No significant abnormalities. PELVIS: Bowel- Moderate sigmoid diverticulosis is noted. Normal physiologic bowel activity is identified. Masses- There are no pelvic masses. Bones- Prior spine surgery with associated metallic artifact is noted. With the use of bone window settings, there are no osteolytic or osteoblastic lesions. There are no FDG avid lesions within the visualized portion of the axial skeleton. PET/PET/CT Tumor Base -Thigh Init IMPRESSION: FDG avid- No significant avid lesions. Suspicious- No significant suspicious abnormalities. Other: Moderate sigmoid diverticulosis. Hypometabolic appearance of the previously noted splenic lesion. Please note the low-dose CT scan was performed to facilitate PET image reconstruction and anatomic localization and does not replace a diagnostic CT. Any diagnostic CT requested and performed at the time of the PET will be reported separately. Reading Location: [place] [address] CC: Dr. Steff Tobias MD ~ Cotton Bag Sewer: Signed [facility] CREATININE FINGERSTICKon CREATININE WB < 1.0 Normal 0.55-1.02 [facility] Comment on above: Performed By: #### L 9100.0200 #### [facility] Laboratory [address] [place], [address] EGFR WB > 60.0000 Normal >60 [facility] Comment on above: Performed By: #### L 9100.0200 #### [facility] [address] [place], [address] CTA Chest W/WO Contraston CTA Chest W/WO Contrast [facility] Imaging Services [address] [place] [address] CTA Chest W/WO Contrast MR#: [id number] Acct: [id number] Name: DEANN DEGROOT Rep #: [id number] : 1945 F 79 From: Rober Artis MD PCP: Dr. Steff Tobias MD Status: REG CLI Study: CTA Chest W/WO Contrast Date of Exam: 10/16/24 Exam# [id number] Ordering Dr: Steff Tobias MD PROCEDURE: CTA CHEST W/WO CONTRAST 10/16/2024 REASON FOR EXAM: PULM EMBOLISM Lower leg DVT TECHNIQUE: CTA axial imaging of the chest with intravenous contrast. Coronal and Sagittal reconstruction series were provided. Maximum intensity projection (MIPs) were provided. PATIENT PREPARATION: Per protocol One or more dose reduction techniques were used (e.g., Automated exposure control, adjustment of the mA and/or kV according to patient size, use of iterative reconstruction technique). RADIATION DOSE SUMMARY: DLP: 478.16 mGycm COMPARISON: 09/03/2024 # of known CTs in the past 12 months: 1 # of known Cardiac Nuclear Medicine Studies in the past 12 months: 0 FINDINGS: Lymph nodes: No bulky lymphadenopathy. Heart: Normal heart size. RV/LV Diameter Ratio: Subjectively normal. Thoracic Aorta: No thoracic aortic aneurysm or dissection. Pulmonary Vessels: No evidence of acute pulmonary emboli through the major subsegmental branches. Lungs and Airways: Mild emphysematous changes are present. 7.0 x 6.0 x 4.7 mm left lower lobe subpleural nodule. No focal consolidation. Pleura: No pleural effusion. No pneumothorax. Upper Abdomen: Splenic lesions redemonstrated. Bones: Degenerative changes of the thoracic spine. CT/CTA Chest W/WO Contrast IMPRESSION: Yellow Alert: Slight increase in size of left lower lobe subpleural nodule compared to 09/03/2024 raises suspicion for lung cancer. Right pulmonary artery emboli no longer demonstrated. No new pulmonary artery filling defect. No acute abnormal finding in the chest. Reading Location: [facility] CC: Dr. Steff Tobias MD Cotton Bag Sewer: Signed Normal [facility] EGFROrdered By: Steff Tobias on 10-16-2024 GFR/1.73 sq M.predicted among non-blacks MDRD (S/P/Bld) [Vol rate/Area] mL/min/{1.73_m2} >60 [facility] Venous Duplex US - [facility] mon 10-16-2024 Venous Duplex US - [facility] Cardiovascular Services [address] [place] [address] Venous Duplex US - [facility] 10/16/24 0915 MR#: [id number] Acct: [id number] Name: DEANN DEGROOT Rep #: [id number] : 1945 79 From: Margarito Aleman MD Attending Dr: Dr. Steff Tobias MD Status: REG CLI Ordering Dr: Steff Tobias MD Date: 10/16/24 Location: CVS Sex: F C Admitted: Reason For Study Reason For Study: Pain RIGHT LEFT GSV is normal. CFV is compressible, spontaneous, phasic, competent, CFV is compressible, spontaneous, phasic, competent and demonstrates normal augmentation. and demonstrates normal augmentation. PTV is compressible. FV is compressible, spontaneous, phasic, competent LT PerV is compressible. and demonstrates normal augmentation. Acute deep vein thrombosis is noted in the FV, PopV, POP V is compressible, spontaneous, phasic, competent and T/P Trunk. It is dilated and NONCOMPRESSIBLE. and demonstrates normal augmentation. HX of GSV ablation. T/P Trunk is compressible. PTV is compressible. RT PerV is compressible. Procedure This is a venous duplex using B-mode, color flow and spectral Doppler. Exam performed in department. VL/Venous Duplex US - [facility] Interpretation Summary Acute deep vein thrombosis noted in the left femora vein, poplitael vein, tibioperoneal trunk vein. Deep veins of the right lower extremity are patent and compressible segmentally. There is no evidence of right lower extremity deep vein thrombosis. The right great saphenous vein appears patent and compressible segmentally. Ordering Physician: Steff Tobias Chi Referring Physician: Steff Tobias Chi Performed By: Licha Linn RVT 10/16/241717 Date Margarito Aleman MD CC: Dr. Steff Tobias MD Date Dictated: 10/16/24914 Date Transcribed: 10/16/241717 [employer] Sewer: Signed Normal [facility] [id number] 09-25-2024 [facility] Misc. COMMENT Normal . [facility] Comment on above: Order Comment: [id number] 0Esoterix 3 BLUE ,2 EDTA, 1 RED Result Comment: Test Ordered: [id number] Venous Thrombosis Profile Homocysteine 16.4 [H ] umol/L UY Reference Range: . Homocysteine levels in patients >60 years increase 1-2 umol/L. Reference Range: 5.0 - 15.0 Factor VIII Activity 282 [H ] % UY Reference Range: . FVIII activity can increase in a variety of clinical situations including normal , in samples drawn from patients (particularly children) who are visibly stressed at the time of phlebotomy, as acute phase reactants, or in response to certain drug therapies such as DDAVP. Persistently elevated FVIII activity is a risk factor for venous thrombosis as well as recurrence of venous thrombosis. Risk is graded and increases with the degree of elevation. Although elevated FVIII activity has been identified to cluster within families, a genetic basis for the elevation has not yet been elucidated (Br J Haematol. 2012; 157:653-663). Reference Range: 57 - 163 Antithrombin Activity, Plasma 132 % UY Reference Range: . Direct oral anticoagulants such as rivaroxaban, apixaban and edoxaban will lead to spuriously elevated antithrombin activity levels possibly masking a deficiency. Reference Range: 7 months and older: 75 - 135 Prt C Activity (Chromogenic) 142 % UY Reference Range: . Reference Range: 17 years and older: 73 - 180 Protein S Antigen, Free 113 % UY Reference Range: . Reference Range: 7 months and older: 57 - 157 This test was developed and its performance characteristics determined by [facility]. It has not been cleared or approved by the Food and Drug Administration. APTT 24.2 sec UY Reference Range: . This test has not been validated for monitoring unfractionated heparin therapy. aPTT-based therapeutic ranges for unfractionated heparin therapy have not been established. Consider ordering Heparin anti-Xa (unfractionated). Reference Range: 18 years and older: 22.9 - 30.2 APTT 1:1 [employer]IST sec UY Reference Range: . Testing Not Indicated This test was developed and its performance characteristics determined by [facility]. It has not been cleared or approved by the [place] Food and Drug Administration. APTT 1:1 Saline sec UY Reference Range: . Testing Not Indicated This test was developed and its performance characteristics determined by [facility]. It has not been cleared or approved by the [place] Food and Drug Administration. LAC Interpretation Comment UY Reference Range: . A lupus anticoagulant is not detected. All antiphospholipid antibodies evaluated are normal. As antibody titers may fluctuate with time, repeat testing may be indicated. Please contact [facility] if further clarification is needed. Act. Prt C Resist w/FV Defic. 2.6 ratio UY Reference Range: . The APCR result may be falsely increased (masking an abnormal, low APCR result) in patients on direct Xa inhibitor (e.g., rivaroxaban, apixaban, edoxaban) or a direct thrombin inhibitor (e.g., dabigatran) anticoagulant therapy due to assay interference by these drugs. Reference Range: 2.2 - 3.5 DRVVT Screen Seconds 70.0 [H ] sec UY Reference Range: . Reference Range: <= 47.0 DRVVT Confirm Seconds 54.7 sec UY Reference Range: . DRVVT Ratio 1.2 ratio UY Reference Range: . Reference Range: 0.8 - 1.2 Hexagonal Phospholipid Neutral 1 sec UY Reference Range: . This value is NEGATIVE. This is a qualitative assay and is therefore reported as positive for lupus anticoagulant or negative. The quantitative value is provided as an aid in diagnosis. Reference Range: 0 - 11 Anticardiolipin Ab, IgG <10 GPL UY Reference Range: . Reference Range: Negative: <15 Indeterminate: 15 - 20 Low to medium positive: >20 - 80 High positive: >80 Anticardiolipin Ab, IgM <10 MPL UY Reference Range: . Reference Range: Negative: <13 Indeterminate: 13 - 20 Low to medium positive: >20 - 80 High positive: >80 Beta-2 Glycoprotein I, IgG <10 SGU UY Reference Range: . The reference interval reflects a 3SD or 99th percentile interval. Reference Range: Negative: <21 Beta-2 Glycoprotein I, IgM <10 SMU UY Reference Range: . The reference interval reflects a 3SD or 99th percentile interval. Reference Range: Negative: <33 Beta-2 Glycoprotein I, IgA <10 JOAN UY Reference Range: . The reference interval reflects a 3SD or 99th percentile interval. Reference Range: Negative: <26 Factor II Gene Mutation Result Comment UY Reference Range: . G-G (Normal-Normal) No prothrombin [id number] mutation present. Interpretation: Comment UY Reference Range: . While the patient does not possess this risk factor, other thrombotic risk factors may be detected through systematic clinical laboratory analysis. Methodology: Comment UY Reference Range: . Patient DNA was evaluated [place] the [place] [address] using PCR amplification followed by restriction analysis and gel electro (more content not included)... Performed By: #### L 3410.9998 ####[facility] [id number] [facility] [place], [address] Lumbar Spine 2 or 3 Viewson 09-12-2024 Lumbar Spine 2 or 3 Views [facility] Imaging Services [address] [place], [place] [address] Lumbar Spine 2 or 3 Views MR#: [id number] Acct: [id number] Name: DEANN DEGROOT Rep #: [id number] : 1945 F 79 From: Rony Jovel MD PCP: Dr. Steff Tobias MD Status: DEP AMB Study: Lumbar Spine 2 or 3 Views Date of Exam: Exam# [id number] Ordering Dr: Tova Cali EXAM: XR Lumbosacral Spine, 2 or 3 Views CLINICAL INDICATION: S/P FUSION 1 YEAR FOLLOW UP TECHNIQUE: Frontal and lateral views of the lumbar spine and sacrum. COMPARISON: XR Lumbosacral Spine dated 12/19/2023 FINDINGS: VERTEBRAE: S shaped scoliosis of the thoracolumbar spine. 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 Evidence of prior vertebroplasty of L3-L5. No acute fracture. Normal alignment. SACRUM/COCCYX: Unremarkable as visualized. No acute fracture. DISC SPACES: Status post posterior fusion of L3-L5 with disc spacers. Intact hardware. SOFT TISSUES: Unremarkable. RAD/Lumbar Spine 2 or 3 Views IMPRESSION: 1. Postoperative changes as above. 2. No significant change from the prior exam. Reading Location: [facility] CC: PATRICIA Pearce; Dr. Steff Tobias MD Cotton Bag Sewer: Signed Normal [facility] Orthopedic Visit Reporton Orthopedic Visit Report [facility] [address] [place] [address] OFFICE VISIT Date of Service: 09/12/24 MR#: [id number] Acct: [id number] Name: DEANN DEGROOT Rep #: [id number] : 1945 Provider: Dr. Walter Chang MD Age/Sex: 79/F Location[place] [facility] Status: Signed Intake Vital Signs 09/18/23 15:59 Height 5 ft 6 in Intake Visit Reasons: LUMBAR SPINE Chief Complaint: 1 year follow up Allergies amoxicillin trihydrate (From Augmentin) Allergy (Verified 09/12/24 11:28) Rash potassium clavulanate (From Augmentin) Allergy (Verified 09/12/24 11:28) Rash Medications ???Medication ???Instructions ???Recorded ???Confirmed ???Type pantoprazole 40 mg tablet,delayed 40 mg PO DAILY GERD 05/06/1408/30 History release simvastatin 80 mg tablet 80 mg PO QHS CHOLESTEROL 05/06/14 09/12/24 History metformin 500 mg tablet 1,000 mg PO BID DIABETES 06/01/23 09/12/24 History valsartan 320 mg tablet 320 mg PO DAILY BP 06/01/23 History acetaminophen 500 mg tablet 500 mg PO Q6H 7 days #28 tabs 08/3109/12/24 Rx apixaban 5 mg tablet (Eliquis) 5 mg PO BID 09/12/24 09/12/24 Hist ory cholecalciferol (vitamin D3) 25 25 mcg PO QDAY 09/12/24 09/12/24 H istory mcg (1,000 unit) capsule Have you fallen in the past year?: No PFSH Medical History DVT (deep venous thrombosis) Post-menopausal History of steroid therapy Diabetes High cholesterol Restless legs Back pain Dietary restriction Gastric reflux Former smoker Shortness of breath on exertion History of edema Type 2 diabetes mellitus without complications Hypertension Surgical History Hx of colonoscopy Hx of foot surgery History of vein stripping Hx of breast biopsy Hx of blepharoplasty Hx of left cataract extraction Hx of right cataract extraction History of hysteroscopy H/O abdominoplasty Social History Smoking Status: Former smoker HPI LUMBAR SPINE Details: This documentation accurately reflects the service provided and the decisions made by me, Dr. Walter Chang MD 09/12/24 1124. Part of today???s visit was documented by Rolanda Edwards RN, acting as scribe. DEANN DEGROOT is a 79 year old F here today for 1 year follow up s/p L3-5 oblique lumbar interbody fusion (OLIF) DOS 09/18/2023. She reports healing well from surgery. She denies any pain in her low back. She is able to do all of her normal daily activities. She does report that her low back muscles tighten up with certain activities especially if she does a lot. Says that this is equal on both sides. She does have to sit down when her muscles tighten up. She was recently diagnosed with blood clots in her lung and leg and takes Eliquis. Ortho Exam General General: Yes no acute distress Neurologic: Yes alert and Yes oriented x3 Spine SPINE TESTING CERVICAL THORACIC LUMBAR Musculoskeletal Strength 0=absent - 5=normal Details: Examination the back and belly show incisions well-healed. Neurologic evaluation of lower extremity shows 5 x 5 power normal shows normal sensations in all dermatomes. Coding Level of Care Code Off vis,est,level 3 Diagnoses Status post lumbar spinal fusion Z98.1 Time Spent (min) 25 Assessment and Plan Assessment and Plan (1) Status post lumbar spinal fusion: Status: Acute Orders: Orders Lumbar Spine 2 or 3 Views Today Z98.1 - Arthrodesis status Plan Obtained and reviewed xrays today in the clinic. Xrays shows hardware and bone graft in good position. Patient is now 1 year out L3-5 fusion. Says that she is doing really well she is able to do everything that she wishes to do. Discussed that if she needs a muscle relaxer for spasms she should talk to her family doctor. She can follow up on an as needed basis. Says that she goes to a massage therapist once a month that does seem to help a little. She plans to get different exercise equipment to increase lower extremity strength. Patient is in agreement. Clinical Quality Measures Falls Risk Screening/Assistive Devices Have you fallen in the past year?: No 09/12/24 1543 Date Walter Chang MD Cosigner Signature: Date (if applicable) CC: Dr. Steff Tobias MD Normal [facility] CTA Chest W/WO Contraston CTA Chest W/WO Contrast [facility] Imaging Services [address] [place] [address] CTA Chest W/WO Contrast MR#: [id number] Acct: [id number] Name: DEANN DEGROOT Rep #: [id number] : 1945 F 79 From: Akira paige MD PCP: Dr. Steff Tobias MD Status: REG CLI Study: CTA Chest W/WO Contrast Date of Exam: 09/03/24 Exam# [id number] Ordering Dr: Steff Tobias MD PROCEDURE: CTA CHEST W/WO CONTRAST REASON FOR EXAM: Bilateral lower extremity swelling worse on the left side. Shortness of breath. TECHNIQUE: CTA imaging of the chest with intravenous contrast. 3D reconstructions. CONTRAST: 100 mL of Isovue 300. COMPARISON: None. FINDINGS: Hardware: None. There is a 4.6 cm x 4.9 cm x 4.7 cm cyst in the upper midportion of the spleen. There is also evidence of a 1.6 cm hypodensity in the inferior aspect of the spleen this may represent a complex cyst Lymph nodes: No mediastinal hilar or axillary lymphadenopathy. Heart: Normal heart size. No pericardial effusion. RV/LV Diameter Ratio: N/A Thoracic Aorta: No thoracic aortic aneurysm or dissection. Mild atherosclerotic plaque formation. Pulmonary Vessels: Tiny nonocclusive filling defects are seen in the distal portion of the right pulmonary artery and right inter lobar artery extending to the right lower pulmonary arterial branches. Tiny filling defect is also seen at the origin of the right upper lobe pulmonary artery. Most Proximal Level of Embolus (if embolus present): N/A Lungs and Airways: Mild emphysematous changes are present. Mild increased markings in the lingular segment of the left upper lobe suggestive of scarring. Pleura: No pleural effusion. No pneumothorax. Upper Abdomen: Is a 4.6 cm x 4.9 cm x 4.7 cm cyst in the upper midportion of the spleen. There is also evidence of a 1.6 cm hypodensity in the inferior aspect of the spleen this may represent a complex cyst. Bones: Degenerative changes of the thoracic spine. CT/CTA Chest W/WO Contrast IMPRESSION: Nonocclusive filling defects are seen in the distal portion of the right pulmonary artery and right interlobar artery extending into branches of the right lower lobe pulmonary artery. Tiny filling defects also seen at the origin of the right upper lobe pulmonary artery. One or more dose reduction techniques were used (e.g., Automated exposure control, adjustment of the mA and/or kV according to patient size, use of iterative reconstruction technique). Reading Location: [facility] CC: Dr. Steff Tobias MD Cotton Bag Sewer: Signed Normal [facility] Venous Duplex [facility] - [facility] 09-03-2024 Venous Duplex US - [facility] Cardiovascular Services [address] [place] [address] Venous Duplex US - [facility] 09/03/24 1058 MR#: [id number] Acct: [id number] Name: DEANN DEGROOT Rep #: [id number] : 1945 79 From: Margarito Aleman MD Attending Dr: Dr. Steff Tobias MD Status: REG CLI Ordering Dr: Steff Tobias MD Date: 09/03/24 Location: CVS Sex: F C Admitted: Reason For Study Reason For Study: Swelling RIGHT LEFT GSV is normal. CFV is compressible, spontaneous, phasic, competent, CFV is compressible, spontaneous, phasic, competent and demonstrates normal augmentation. and demonstrates normal augmentation. PTV is compressible. FV is compressible, spontaneous, phasic, competent HX of GSV ablation. and demonstrates normal augmentation. POP V is compressible, spontaneous, phasic, competent Acute deep vein thrombosis is noted in the FV, PopV, and demonstrates normal augmentation. T/P Trunk, Peroneal V. It is dilated and T/P Trunk is compressible. NONCOMPRESSIBLE. PTV is compressible. RT PerV is compressible. Procedure This is a venous duplex using B-mode, color flow and spectral Doppler. Exam performed in department. A preliminary report was called and/or faxed to Steff Tobias MD. VL/Venous Duplex US - [facility] Interpretation Summary Acute deep vein thrombosis noted in the left femoral vein, popliteal vein, tibioperoneal trunk vein, peroneal vein. Deep veins of the right lower extremity are patent and compressible segmentally. There is no evidence of right lower extremity deep vein thrombosis. The right great saphenous vein appears patent and compressible segmentally. Ordering Physician: Steff Tobias Chi Referring Physician: Steff Tobias Chi Performed By: Cirilo Quan RVT and Student 09/03/24 1640 Date Margarito Aleman MD CC: Dr. Steff Tobias MD Date Dictated: 09/03/24 1058 Date Transcribed: 09/03/24 1640 Cotton Bag Sewer: Signed Normal [facility] Venous duplex ultrasound rep ortOrdered By: Margarito Aleman on 09-03-2024 [facility] Cardiovascular Services [address] [place] [address] Venous Duplex US - [facility] 09/03/241057 MR#: [id number] Acct: [id number] Name: DEANN DEGROOT Rep #:[id number] : 1945 79 From: Margarito Boss Attending Dr: Dr. Steff Tobias MD Status: REG CLI Ordering Dr: Steff Tobias MD Date: 11/23 Location: CVS Sex: F C Admitted: Reason For Study Reason For Study: Swelling RIGHT LEFT GSV is normal. CFV is compressible, spontaneous, phasic, competent, CFV is compressible, spontaneous, phasic, competent and demonstrates normal augmentation. and demonstrates normal augmentation. PTV is compressible. FV is compressible, spontaneous, phasic, competent HX of GSV ablation. and demonstrates normal augmentation. POP V is compressible, spontaneous, phasic, competent Acute deep vein thrombosis is noted in the FV, PopV, and demonstrates normal augmentation. T/P Trunk, Peroneal V. It is dilated and T/P Trunk is compressible. NONCOMPRESSIBLE. PTV is compressible. RT PerV is compressible. Procedure This is a venous duplex using B-mode, color flow and spectral Doppler. Exam performed in department. A preliminary report was called and/or faxed to Steff Tobias MD. VL/Venous Duplex US - [facility] Extrem Interpretation Summary Acute deep vein thrombosis noted in the left femoral vein, popliteal vein, tibioperoneal trunk vein, peroneal vein. Deep veins of the right lower extremity are patent and compressible segmentally.There is no evidence of right lower extremity deep vein thrombosis. The right great saphenous vein appears patent and compressible segmentally. Ordering Physician: Steff Tobias Chi Referring Physician: Steff Tobias Chi Performed By: Cirilo Quan RVT and Student 09/03/24 1640 Date _ Margarito Aleman MD CC: Dr. Steff Tobias MD ~ Date Dictated: 09/03/248 Date Transcribed: 09/03/241639 [employer]: Signed [facility] Work Phone: Absolute lymphocyte countOrd ered By: Steff Tobias on 09-02-2024 Lymphocytes Auto (Unsp spec) [#/Vol] 1.44 10*3/uL 0.83-4.51 [facility] Absolute neutrophil countOrd ered By: Steff Tobias on 09-02-2024 Neutrophils (Bld) [#/Vol] 7.4 10*3/uL 2.0-7.7 [facility] Anion gap in Serum or Plasma Ordered By: Steff Tobias on 09-02-2024 Anion gap [Moles/Vol] 16 mmol/L High 5-15 [facility] Automated lymphocyte count a s percentage of total leukocytesOrdered By: Steff Tobias on 09-02-2024 Lymphocytes/100 WBC Auto (Unsp spec) 15.1 % Low 19-41 [facility] BUN/creatinine ratioOrdered By: Steff Tobias on 09-02-2024 Urea nitrogen/Creatinine [Mass ratio] 14.2 mg/mg 10- [facility] Basic Metabolic Profile (BMP )on 09-02-2024 BUN/CRE 14.2 RATIO Normal 10-20 [facility] Comment on above: Performed By: #### L 500.2500, L100.0100, L300.8000 ####[facility] [address] [place], [address] Calcium [Mass/Vol] 9.7 mg/dL Normal 7.6-11.0 [facility] Comment on above: Performed By: #### L 500.2500, L100.0100, L300.8000 ####[facility] [address] [place], [address] Chloride [Moles/Vol] 103 mmol/L Normal 98-108 [facility] Comment on above: Performed By: #### L 500.2500, L100.0100, L300.8000 ####[facility] [address] [place], [address] CO2 [Moles/Vol] 19.6 mmol/L Low 21.0-32.0 [facility] Comment on above: Performed By: #### L 500.2500, L100.0100, L300.8000 ####[facility] [address] [place], [address] Creatinine [Mass/Vol] 1.40 mg/dL High 0.70-1.20 [facility] Comment on above: Performed By: #### L 500.2500, L100.0100, L300.8000 ####[facility] [address] [place], [address] GAP 16 High 5-15 [facility] Comment on above: Performed By: #### L 500.2500, L100.0100, L300.8000 ####[facility] [address] [place], [address] GFR/1.73 sq M.predicted among non-blacks MDRD (S/P/Bld) [Vol rate/Area] 39 mL/min/{1.73_m2} Low >60 [facility] Comment on above: Result Comment: mL/m in/1.73m2 CKD-EPI Creatinine Equation (2020) Performed By: #### L 500.2500, L100.0100, L300.8000 ####[facility] [address] [place], [address] Glucose [Mass/Vol] 204 mg/dL High 70-99 [facility] Comment on above: Performed By: #### L 500.2500, L100.0100, L300.8000 ####[facility] [address] [place], [address] Potassium [Moles/Vol] 4.6 mmol/L Normal 3.3-5.1 [facility] Comment on above: Performed By: #### L 500.2500, L100.0100, L300.8000 ####[facility] [address] [place], [address] Sodium [Moles/Vol] 139 mmol/L Normal 133-145 [facility] Comment on above: Performed By: #### L 500.2500, L100.0100, L300.8000 ####[facility] [address] [place], [address] Urea nitrogen [Mass/Vol] 20 mg/dL High 4-19 [facility] Comment on above: Performed By: #### L 500.2500, L100.0100, L300.8000 ####[facility] [address] [place], [address] Basophil percentageOrdered B y: Steff Tobias on 09-02-2024 Basophils/100 WBC (Bld) 0.7 % 0-1 [facility] CBC W/Diff, Automatedon 03-0 -2024 Absolute Lymph 1.44 X10 3/uL Normal 0.83-4.51 [facility] Comment on above: Performed By: #### L 500.2500, L100.0100, L300.8000 ####[facility] [address] [place], [address] Absolute Neut 7.4 X10 3/uL Normal 2.0-7.7 [facility] Comment on above: Performed By: #### L 500.2500, L100.0100, L300.8000 ####[facility] [address] [place], [address] Basophils/100 WBC (Bld) 0.7 % Normal 0-1 [facility] Comment on above: Performed By: #### L 500.2500, L100.0100, L300.8000 ####[facility] [address] [place], [address] Eosinophils/100 WBC (Bld) 1.0 % Normal 0-5 [facility] Comment on above: Performed By: #### L 500.2500, L100.0100, L300.8000 ####[facility] [address] [place], [address] Erythrocyte distribution width (RBC) [Ratio] 14.5 % Normal 11.6-14.6 [facility] Comment on above: Performed By: #### L 500.2500, L100.0100, L300.8000 ####[facility] [address] [place], [address] Hematocrit (Bld) [Volume fraction] 39.4 % Normal 37-47 [facility] Comment on above: Performed By: #### L 500.2500, L100.0100, L300.8000 ####[facility] [address] [place], [address] Hemoglobin (Bld) [Mass/Vol] 12.9 g/dL Normal 12.0-15.0 [facility] Comment on above: Performed By: #### L 500.2500, L100.0100, L300.8000 ####[facility] [address] [place], [address] IG% 0.300 Normal 0.0-0.9 [facility] Comment on above: Result Comment: IG% - Immature Granulocytes (promyelocytes, myelocytes and metamyelocytes) > 1% indicates that a LEFT SHIFT is Present. Performed By: #### L 500.2500, L100.0100, L300.8000 ####[facility] [address] [place], [address] Lymphocytes/100 WBC (Bld) 15.1 % Low 19-41 [facility] Comment on above: Performed By: #### L 500.2500, L100.0100, L300.8000 ####[facility] [address] [place], [address] MCH (RBC) [Entitic mass] 26.5 pg Low 27.0-32.0 [facility] Comment on above: Performed By: #### L 500.2500, L100.0100, L300.8000 ####[facility] [address] [place], [address] MCHC (RBC) [Mass/Vol] 32.7 g/dL Normal 32-36 [facility] Comment on above: Performed By: #### L 500.2500, L100.0100, L300.8000 ####[facility] [address] [place], [address] MCV (RBC) [Entitic vol] 80.9 fL Low 81-99 [facility] Comment on above: Performed By: #### L 500.2500, L100.0100, L300.8000 ####[facility] [address] [place], [address] Monocytes/100 WBC (Bld) 5.5 % Normal 0-10 [facility] Comment on above: Performed By: #### L 500.2500, L100.0100, L300.8000 ####[facility] [address] [place], [address] Neutrophils/100 WBC (Bld) 77.4 % High 47-70 [facility] Comment on above: Performed By: #### L 500.2500, L100.0100, L300.8000 ####[facility] [address] [place], [address] Nucleated RBC (Bld) [#/Vol] 0 10*3/uL Normal 0-5 [facility] Comment on above: Performed By: #### L 500.2500, L100.0100, L300.8000 ####[facility] [address] [place], [address] Platelet mean volume (Bld) [Entitic vol] 9.3 fL Normal 6.2-12.0 [facility] Comment on above: Performed By: #### L 500.2500, L100.0100, L300.8000 ####[facility] [address] [place], [address] Platelets (Bld) [#/Vol] 241 10*3/uL Normal 150-450 [facility] Comment on above: Performed By: #### L 500.2500, L100.0100, L300.8000 ####[facility] [address] [place], [address] RBC (Bld) [#/Vol] 4.87 10*6/uL Normal 4.2-5.4 [facility] Comment on above: Performed By: #### L 500.2500, L100.0100, L300.8000 ####[facility] [address] [place], [address] RDW SD 42.4 fl Normal 35.1-43.9 [facility] Comment on above: Performed By: #### L 500.2500, L100.0100, L300.8000 ####[facility] [address] [place], [address] WBC (Bld) [#/Vol] 9.6 10*3/uL Normal 4.4-11.0 [facility] Comment on above: Performed By: #### L 500.2500, L100.0100, L300.8000 ####[facility] [address] [place], [address] Carbon dioxide, total [Moles /volume] in Central venous bloodOrdered By: Steff Tobias on 09-02-2024 CO2 [Moles/Vol] 19.6 mmol/L Low 21.0-32.0 [facility] Chloride assayOrdered By: John Tobias on 09-02-2024 Chloride [Moles/Vol] 103 mmol/L 98-108 [facility] D-Dimer Quantitative (DVT/PE )on 09-02-2024 D-DIMER QUANT 5.37 FEU/ug/m Invalid Interpretation Code 0.27-0.49 [facility] Comment on above: Order Comment: CRITI KAYLA VALUE CALLED TO DR. TOBIAS09/02/24 1805 Franci Greene.RESULTS READ BACK BY SAME. Result Comment: D-Di tierra ELEVATED (>0.49): Additional studies and clinical assessments are indicated to conclude diagnosis of: Deep Vein Thrombosis (DVT) or Pulmonary Embolism (PE) Performed By: #### L 500.2500, L100.0100, L300.8000 ####[facility] [address] [place], [address] D-dimer measurement for deep venous thrombosisOrdered By: Steff Tobias on 09-02-2024 D-Dimer Quantitative (PE/DVT) 5.37 FEU/ug/m High 0.27-0.49 [facility] Comment on above: D-Dimer ELEVATED (>0 .49): Additional studies and clinicalassessments are indicated to conclude diagnosis of:Deep Vein Thrombosis (DVT) or Pulmonary Embolism (PE) Eosinophil percentageOrdered By: Steff Tobias on 09-02-2024 Eosinophils/100 WBC (Bld) 1.0 % 0-5 [facility] Erythrocyte distribution wid th ratioOrdered By: Stfef Tobias on 09-02-2024 Erythrocyte distribution width (RBC) [Ratio] 14.5 % 11.6-14.6 [facility] Erythrocyte distribution wid th standard deviationOrdered By: Steff Tobias on 09-02-2024 Erythrocyte distribution width (RBC) [Entitic vol] 42.4 fL 35.1-43.9 [facility] Erythrocyte distribution width (RBC) [Ratio] 42.4 fl 35.1-43.9 [facility] GFR/1.73 sq M.predicted rebekah g non-blacks MDRD (S/P/Bld) [Vol rate/Area]Ordered By: Steff Tobias 09-02-2024 Estimated GFR (MDRD) Non-Af Amer 39 Low >60 [facility] Comment on above: mL/min/1.73m2 CKD-EP I Creatinine Equation (2020) Glomerular filtration rate ( GFR) estimation/1.73 sq m using serum, plasma, or whole bOrdered By: Steff Tobias 09-02-2024 GFR/1.73 sq M.predicted among non-blacks MDRD (S/P/Bld) [Vol rate/Area] 39 mL/min/{1.73_m2} Low >60 [facility] Comment on above: mL/min/1.73m2 CKD-EP I Creatinine Equation (2020) Hematocrit Auto (Bld) [Volum e fraction]Ordered By: Steff Tobias 09-02-2024 Hematocrit (Bld) [Volume fraction] 39.4 % 37-47 [facility] Hemoglobin measurementOrdere d By: Steff Tobias 09-02-2024 Hemoglobin (Bld) [Mass/Vol] 12.9 g/dL 12.0-15.0 [facility] Immature granulocytes/100 WB C Auto (Bld)Ordered By: Steff Tobias 09-02-2024 Immature granulocytes/100 WBC (Bld) 0.300 % 0.0-0.9 [facility] Comment on above: IG% - Immature Granu locytes (promyelocytes, myelocytes and metamyelocytes) > 1% indicates that a LEFT SHIFT is Present. Lymphocytes Auto (Unsp spec) [#/Vol]Ordered By: Steff Tobias on 09-02-2024 Lymphocytes (Bld) [#/Vol] 1.44 10*3/uL 0.83-4.51 [facility] Lymphocytes/100 WBC Auto (Un sp spec)Ordered By: Steff Tobias on 09-02-2024 Lymphocytes/100 WBC (Bld) 15.1 % Low 19-41 [facility] MCV (mean corpuscular volume ) determinationOrdered By: Steff Tobias on 09-02-2024 MCV (RBC) [Entitic vol] 80.9 fL Low 81-99 [facility] Mean corpuscular hemoglobin (MCH) determinationOrdered By: Steff Tobias on 09-02-2024 MCH (RBC) [Entitic mass] 26.5 pg Low 27.0-32.0 [facility] Mean corpuscular hemoglobin concentration (MCHC) determinationOrdered By: Steff Tobias on 09-02-2024 MCHC (RBC) [Mass/Vol] 32.7 g/dL 32-36 [facility] Mean platelet volume determi nationOrdered By: Steff Tobias on 09-02-2024 Platelet mean volume (Bld) [Entitic vol] 9.3 fL 6.2-12.0 [facility] Monocyte percentageOrdered B y: Steff Tobias on 09-02-2024 Monocytes/100 WBC (Bld) 5.5 % 0-10 [facility] Neutrophil percentageOrdered By: Steff Tobias on 09-02-2024 Neutrophils/100 WBC (Bld) 77.4 % High 47-70 [facility] Nucleated red blood cell per centageOrdered By: Steff Tobias on 09-02-2024 Nucleated RBC/100 WBC (Bld) [Ratio] 0 % 0-5 [facility] Platelet countOrdered By: John Tobias on 09-02-2024 Platelets (Bld) [#/Vol] 241 10*3/uL 150-450 [facility] Potassium (Unsp spec) [Mass/ Vol]Ordered By: Steff Tobias on 09-02-2024 Potassium [Moles/Vol] 4.6 mmol/L 3.3-5.1 [facility] Potassium measurement (mass/ volume)Ordered By: Steff Tobias on 09-02-2024 Potassium (Unsp spec) [Mass/Vol] 4.6 mmol/L 3.3-5.1 [facility] RBC Auto (Bld) [#/Vol]Ordere d By: Steff Tobias on 09-02-2024 RBC (Bld) [#/Vol] 4.87 10*6/uL 4.2-5.4 [facility] Serum creatinine measurement (mass/volume)Ordered By: Steff Tobias on 09-02-2024 Creatinine [Mass/Vol] 1.40 mg/dL High 0.70-1.20 [facility] Serum glucose measurement (m ass/volume)Ordered By: Steff Tobias on 09-02-2024 Glucose [Mass/Vol] 204 mg/dL High 70-99 [facility] Serum or plasma calcium jacinto urement (mass/volume)Ordered By: Steff Tobias on 09-02-2024 Calcium [Mass/Vol] 9.7 mg/dL 7.6-11.0 [facility] Serum or plasma urea nitroge n measurement (mass/volume)Ordered By: Steff Tobias on 09-02-2024 Urea nitrogen [Mass/Vol] 20 mg/dL High 4-19 [facility] Sodium levelOrdered By: Steff Tobias on 09-02-2024 Sodium [Moles/Vol] 139 mmol/L 133-145 [facility] White blood cell (WBC) count Ordered By: Steff Tobias on 09-02-2024 WBC (Bld) [#/Vol] 9.6 10*3/uL 4.4-11.0 [facility] 18-IT-Dczpqcv DOrdered By: Kimmie Tobias on 06-04-2024 Vitamin D 25-Hydroxy 42.1 ng/mL [facility] Comment on above: Vitamin D 25(OH) Sta tus Range Deficiency <20 ng/mL (50nmol/L) Insufficiency 20 - 30 ng/mL (50 - 75 nmol/L) Sufficiency 30 - 100 ng/mL (75 - 250 nmol/L) Toxicity >100 ng/mL (>250 nmol/L) Absolute neutrophil countOrd ered By: Steff Tobias on 06-04-2024 Neutrophils (Bld) [#/Vol] 5.6 10*3/uL 2.0-7.7 [facility] Albumin to globulin ratioOrd ered By: Steff Tobias on 06-04-2024 Albumin/Globulin [Mass ratio] 0.9 {ratio} 0.9-2.4 [facility] Basophil percentageOrdered B y: Steff Harsha on 06-04-2024 Basophils/100 WBC (Bld) 0.7 % 0-1 [facility] Bilirubin, totalOrdered By: Steff Harsha on 06-04-2024 Bilirubin [Mass/Vol] 0.60 mg/dL 0.20-1.00 [facility] Comment on above: For patients on eltr ombopag therapy, use of Dimension [place] TBIL is not recommended. Blood urea nitrogen (BUN)/cr eatinine ratioOrdered By: Steff Tobias on 06-04-2024 Urea nitrogen/Creatinine [Mass ratio] 13.2 mg/mg 10-20 [facility] CBC W/Diff, Automatedon Absolute Lymph 1.24 X10 3/uL Normal 0.83-4.51 [facility] Comment on above: Performed By: #### L 100.0100, L506.1000, L500.4050, L501.9520 #### [facility] [address] [place], [address] Absolute Neut 5.6 X10 3/uL Normal 2.0-7.7 [facility] Comment on above: Performed By: #### L 100.0100, L506.1000, L500.4050, L501.9520 #### [facility] [address] [place], [address] Basophils/100 WBC (Bld) 0.7 % Normal 0-1 [facility] Comment on above: Performed By: #### L 100.0100, L506.1000, L500.4050, [id number] #### [facility] [address] [place], [address] Eosinophils/100 WBC (Bld) 2.2 % Normal 0-5 [facility] Comment on above: Performed By: #### L 100.0100, L506.1000, L500.4050, [id number] #### [facility] [address] [place], [address] Erythrocyte distribution width (RBC) [Ratio] 16.3 % High 11.6-14.6 [facility] Comment on above: Performed By: #### L 100.0100, L506.1000, L500.4050, L501.9520 #### [facility] [address] [place], [address] Hematocrit (Bld) [Volume fraction] 39.9 % Normal 37-47 [facility] Comment on above: Performed By: #### L 100.0100, L506.1000, L500.4050, [id number] #### [facility] [address] [place], [address] Hemoglobin (Bld) [Mass/Vol] 12.5 g/dL Normal 12.0-15.0 [facility] Comment on above: Performed By: #### L 100.0100, L506.1000, L500.4050, [id number] #### [facility] [address] [place], [address] IG% 0.300 Normal 0.0-0.9 [facility] Comment on above: Result Comment: IG% - Immature Granulocytes (promyelocytes, myelocytes and metamyelocytes) > 1% indicates that a LEFT SHIFT is Present. Performed By: #### L 100.0100, L506.1000, L500.4050, L501.9520 #### [facility] [address] [place], [address] Lymphocytes/100 WBC (Bld) 16.7 % Low 19-41 [facility] Comment on above: Performed By: #### L 100.0100, L506.1000, L500.4050, [id number] #### [facility] [address] [place], [address] MCH (RBC) [Entitic mass] 25.4 pg Low 27.0-32.0 [facility] Comment on above: Performed By: #### L 100.0100, L506.1000, L500.4050, [id number] #### [facility] [address] [place], [address] MCHC (RBC) [Mass/Vol] 31.3 g/dL Low 32-36 [facility] Comment on above: Performed By: #### L 100.0100, L506.1000, L500.4050, [id number] #### [facility] [address] [place], [address] MCV (RBC) [Entitic vol] 81.1 fL Normal 81-99 [facility] Comment on above: Performed By: #### L 100.0100, L506.1000, L500.4050, [id number] #### [facility] [address] [place], [address] Monocytes/100 WBC (Bld) 4.4 % Normal 0-10 [facility] Comment on above: Performed By: #### L 100.0100, L506.1000, L500.4050, [id number] #### [facility] [address] [place], [address] Neutrophils/100 WBC (Bld) 75.7 % High 47-70 [facility] Comment on above: Performed By: #### L 100.0100, L506.1000, L500.4050, [id number] #### [facility] [address] [place], [address] Nucleated RBC (Bld) [#/Vol] 0 10*3/uL Normal 0-5 [facility] Comment on above: Performed By: #### L 100.0100, L506.1000, L500.4050, [id number] #### [facility] [address] [place], [address] Platelet mean volume (Bld) [Entitic vol] 8.9 fL Normal 6.2-12.0 [facility] Comment on above: Performed By: #### L 100.0100, L506.1000, L500.4050, [id number] #### [facility] [address] [place], [address] Platelets (Bld) [#/Vol] 275 10*3/uL Normal 150-450 [facility] Comment on above: Performed By: #### L 100.0100, L506.1000, L500.4050, [id number] #### [facility] [address] [place], [address] RBC (Bld) [#/Vol] 4.92 10*6/uL Normal 4.2-5.4 [facility] Comment on above: Performed By: #### L 100.0100, L506.1000, L500.4050, [id number] #### [facility] [address] [place], [address] RDW SD 48.5 fl High 35.1-43.9 [facility] Comment on above: Performed By: #### L 100.0100, L506.1000, L500.4050, [id number] #### [facility] [address] [place], [address] WBC (Bld) [#/Vol] 7.4 10*3/uL Normal 4.4-11.0 [facility] Comment on above: Performed By: #### L 100.0100, L506.1000, L500.4050, [id number] #### [facility] [address] [place], [address] Carbon dioxide measurementOr dered By: Steff Tobias on 06-04-2024 CO2 [Moles/Vol] 22.0 mmol/L 21.0-32.0 [facility] Chloride measurementOrdered By: Steff Tobias on 06-04-2024 Chloride [Moles/Vol] 105 mmol/L 98-107 [facility] Comprehensive Metabolic Prof ilon 06-04-2024 Albumin [Mass/Vol] 3.4 g/dL Normal 3.2-5.0 [facility] Comment on above: Performed By: #### L 100.0100, L506.1000, L500.4050, [id number] #### [facility] [address] [place], [address] Albumin/Globulin [Mass ratio] 0.9 {ratio} Normal 0.9-2.4 [facility] Comment on above: Performed By: #### L 100.0100, L506.1000, L500.4050, [id number] #### [facility] [address] [place], [address] ALK P 117 U/L Normal 45-117 [facility] Comment on above: Performed By: #### L 100.0100, L506.1000, L500.4050, [id number] #### [facility] [address] [place], [address] ALT [Catalytic activity/Vol] 14 U/L Normal 13-56 [facility] Comment on above: Performed By: #### L 100.0100, L506.1000, L500.4050, [id number] #### [facility] [address] [place], [address] AST [Catalytic activity/Vol] 17 U/L Normal 15-37 [facility] Comment on above: Performed By: #### L 100.0100, L506.1000, L500.4050, [id number] #### [facility] [address] [place], [address] Bilirubin [Mass/Vol] 0.60 mg/dL Normal 0.20-1.00 [facility] Comment on above: Result Comment: For patients on eltrombopag therapy, use of Dimension [place] TBIL is not recommended. Performed By: #### L 100.0100, L506.1000, L500.4050, [id number] #### [facility] [address] [place], [address] BUN/CRE 13.2 RATIO Normal 10-20 [facility] Comment on above: Performed By: #### L 100.0100, L506.1000, L500.4050, [id number] #### [facility] [address] [place], [address] CA,Total 9.1 mg/dL Normal 8.5-10.1 [facility] Comment on above: Performed By: #### L 100.0100, L506.1000, L500.4050, [id number] #### [facility] [address] [place], [address] Chloride [Moles/Vol] 105 mmol/L Normal 98-107 [facility] Comment on above: Performed By: #### L 100.0100, L506.1000, L500.4050, [id number] #### [facility] [address] [place], [address] CO2 [Moles/Vol] 22.0 mmol/L Normal 21.0-32.0 [facility] Comment on above: Performed By: #### L 100.0100, L506.1000, L500.4050, [id number] #### [facility] [address] [place], [address] Creatinine [Mass/Vol] 1.29 mg/dL High 0.55-1.02 [facility] Comment on above: Result Comment: The validity of the calculated GFR GFRAA in patients over 70 years has not been determined. Clinical correlation is essential. Performed By: #### L 100.0100, L506.1000, L500.4050, [id number] #### [facility] [address] [place], [address] EST GFR - AA 51 mL/min Low >60 [facility] Comment on above: Result Comment: Afri can [place] GFR Calc Performed By: #### L 100.0100, L506.1000, L500.4050, [id number] #### [facility] [address] [place], [address] GAP 10 Normal 5-15 [facility] Comment on above: Performed By: #### L 100.0100, L506.1000, L500.4050, L501.9520 #### [facility] [address] [place], [address] GFR/1.73 sq M.predicted among non-blacks MDRD (S/P/Bld) [Vol rate/Area] 43 mL/min/{1.73_m2} Low >60 [facility] Comment on above: Result Comment: Non- GFR Calc Performed By: #### L 100.0100, L506.1000, L500.4050, L501.9520 #### [facility] [address] [place], [address] Globulin (S) [Mass/Vol] 3.8 g/dL Normal 2.2-4.2 [facility] Comment on above: Performed By: #### L 100.0100, L506.1000, L500.4050, L501.9520 #### [facility] [address] [place], [address] Glucose [Mass/Vol] 302 mg/dL High 74-106 [facility] Comment on above: Result Comment: Gluc ose result greater than or equal to 200 mg/dL suggests DIABETES MELLITUS per A.D.A. criteria. Performed By: #### L 100.0100, L506.1000, L500.4050, L501.9520 #### [facility] [address] [place], [address] Potassium [Moles/Vol] 3.8 mmol/L Normal 3.5-5.1 [facility] Comment on above: Performed By: #### L 100.0100, L506.1000, L500.4050, L501.9520 #### [facility] [address] [place], [address] Sodium [Moles/Vol] 138 mmol/L Normal 136-145 [facility] Comment on above: Performed By: #### L 100.0100, L506.1000, L500.4050, L501.9520 #### [facility] [address] [place], [address] T PROT 7.2 g/dL Normal 6.4-8.2 [facility] Comment on above: Performed By: #### L 100.0100, L506.1000, L500.4050, L501.9520 #### [facility] [address] [place], [address] Urea nitrogen [Mass/Vol] 17 mg/dL Normal 7-18 [facility] Comment on above: Performed By: #### L 100.0100, L506.1000, L500.4050, L501.9520 #### [facility] [address] [place], [address] Eosinophil percentageOrdered By: Steff Tobias on 06-04-2024 Eosinophils/100 WBC (Bld) 2.2 % 0-5 [facility] Erythrocyte distribution wid th ratioOrdered By: Steff Tobias on 06-04-2024 Erythrocyte distribution width (RBC) [Ratio] 16.3 % High 11.6-14.6 [facility] Erythrocyte distribution wid th standard deviationOrdered By: Steff Tobias on 06-04-2024 Erythrocyte distribution width (RBC) [Entitic vol] 48.5 fL High 35.1-43.9 [facility] Estimated glomerular filtrat ion rate (GFR) AmericanOrdered By: Steff Tobias on 06-04-2024 Estimated GFR (MDRD) Amer 51 mL/min Low >60 [facility] Comment on above: GFR Calc Glomerular filtration rate ( GFR) estimationOrdered By: Steff Tobias on 06-04-2024 Estimated GFR (MDRD) Non-Af Amer 43 mL/min Low >60 [facility] Comment on above: Non- GFR Calc Glucose measurementOrdered B y: Steff Tobias on 06-04-2024 Glucose [Mass/Vol] 302 mg/dL High 74-106 [facility] Comment on above: Glucose result great er than or equal to 200 mg/dLsuggests DIABETES MELLITUS per A.D.A. criteria. Hematocrit Auto (Bld) [Volum e fraction]Ordered By: Steff Tobias on 06-04-2024 Hematocrit (Bld) [Volume fraction] 39.9 % 37-47 [facility] Hemoglobin measurementOrdere d By: Steff Tobias 06-04-2024 Hemoglobin (Bld) [Mass/Vol] 12.5 g/dL 12.0-15.0 [facility] Immature granulocytes/100 WB C Auto (Bld)Ordered By: Steff Tobias 06-04-2024 Immature granulocytes/100 WBC (Bld) 0.300 % 0.0-0.9 [facility] Comment on above: IG% - Immature Granu locytes (promyelocytes, myelocytes and metamyelocytes) > 1% indicates that a LEFT SHIFT is Present. Laboratory - Chemistry and C hemistry - challengeOrdered By: Steff Tobias 06-04-2024 AST [Catalytic activity/Vol] 17 U/L 15-37 [facility] Lymphocytes Auto (Unsp spec) [#/Vol]Ordered By: Steff Tobias 06-04-2024 Lymphocytes (Bld) [#/Vol] 1.24 10*3/uL 0.83-4.51 [facility] Lymphocytes/100 WBC Auto (Un sp spec)Ordered By: Steff Tobias on 06-04-2024 Lymphocytes/100 WBC (Bld) 16.7 % Low 19-41 [facility] MCV (mean corpuscular volume ) determinationOrdered By: Steff Ramosok on 06-04-2024 MCV (RBC) [Entitic vol] 81.1 fL 81-99 [facility] Mean corpuscular hemoglobin (MCH) determinationOrdered By: Steff Ramosok on 06-04-2024 MCH (RBC) [Entitic mass] 25.4 pg Low 27.0-32.0 [facility] Mean corpuscular hemoglobin concentration (MCHC) determinationOrdered By: Steff Ramosok on 06-04-2024 MCHC (RBC) [Mass/Vol] 31.3 g/dL Low 32-36 [facility] Mean platelet volume determi nationOrdered By: Steff Tobias on 06-04-2024 Platelet mean volume (Bld) [Entitic vol] 8.9 fL 6.2-12.0 [facility] Monocyte percentageOrdered B y: Steff Ramosok on 06-04-2024 Monocytes/100 WBC (Bld) 4.4 % 0-10 [facility] Neutrophil percentageOrdered By: Steff Harsha on 06-04-2024 Neutrophils/100 WBC (Bld) 75.7 % High 47-70 [facility] Nucleated red blood cell per centageOrdered By: tSeff Ramosok on 06-04-2024 Nucleated RBC/100 WBC (Bld) [Ratio] 0 % 0-5 [facility] Platelet countOrdered By: John Tobias on 06-04-2024 Platelets (Bld) [#/Vol] 275 10*3/uL 150-450 [facility] Potassium measurementOrdered By: Steff Tobias on 06-04-2024 Potassium [Moles/Vol] 3.8 mmol/L 3.5-5.1 [facility] RBC Auto (Bld) [#/Vol]Ordere d By: Steff Tobias on 06-04-2024 RBC (Bld) [#/Vol] 4.92 10*6/uL 4.2-5.4 [facility] Serum anion gap measurementO rdered By: Steff Tobias on 06-04-2024 Anion gap [Moles/Vol] 10 mmol/L 5-15 [facility] Serum globulin measurementOr dered By: Steff Tobias on 06-04-2024 Globulin (S) [Mass/Vol] 3.8 g/dL 2.2-4.2 [facility] Serum or plasma alanine guevara otransferase (ALT) measurementOrdered By: Steff Tobias on 06-04-2024 ALT [Catalytic activity/Vol] 14 U/L 13-56 [facility] Serum or plasma albumin jacinto urement (mass/volume)Ordered By: Steff Tobias on 06-04-2024 Albumin [Mass/Vol] 3.4 g/dL 3.2-5.0 [facility] Serum or plasma alkaline [place] sphatase measurementOrdered By: Steff Tobias on 06-04-2024 ALP [Catalytic activity/Vol] 117 U/L 45-117 [facility] Serum or plasma calcium jacinto urement (mass/volume)Ordered By: Steff Tobias on 06-04-2024 Calcium [Mass/Vol] 9.1 mg/dL 8.5-10.1 [facility] Serum or plasma creatinine m easurement (mass/volume)Ordered By: Steff Tobias on 06-04-2024 Creatinine [Mass/Vol] 1.29 mg/dL High 0.55-1.02 [facility] Comment on above: The validity of the calculated GFR & GFRAA in patients over 70 years has not been determined. Clinical correlation is essential. Serum or plasma urea nitroge n measurement (mass/volume)Ordered By: Steff Tobias on 06-04-2024 Urea nitrogen [Mass/Vol] 17 mg/dL 7-18 [facility] Sodium levelOrdered By: Steff Tobias on 06-04-2024 Sodium [Moles/Vol] 138 mmol/L 136-145 [facility] TSH QnOrdered By: Steff Tobias o n 06-04-2024 Thyroid Stimulating Hormone (TSH) 2.630 uIU/mL 0.358-3.740 [facility] Thyroid Stim Hormone (TSH)on 06-04-2024 TSH 2.630 uIU/mL Normal 0.358-3.740 [facility] Comment on above: Performed By: #### L 100.0100, L506.1000, L500.4050, L501.9520 #### [facility] [address] [place], [address] Total proteinOrdered By: Steff Tobias on 06-04-2024 Protein [Mass/Vol] 7.2 g/dL 6.4-8.2 [facility] Vitamin D,25 Hydroxyon 06-04 Vitamin D 25-OH 42.1 ng/mL Normal [facility] Comment on above: Result Comment: Sherri min D 25(OH) Status Range Deficiency <20 ng/mL (50nmol/L) Insufficiency 20 - 30 ng/mL (50 - 75 nmol/L) Sufficiency 30 - 100 ng/mL (75 - 250 nmol/L) Toxicity >100 ng/mL (>250 nmol/L) Performed By: #### L 100.0100, L506.1000, L500.4050, L501.9520 #### [facility] [address] [place], [address] White blood cell (WBC) count Ordered By: Steff Tobias on 06-04-2024 WBC (Bld) [#/Vol] 7.4 10*3/uL 4.4-11.0 [facility] HIP, UNI W/ Pelvis 2-3 Views on 03-17-2024 HIP, UNI W/ Pelvis 2-3 Views [facility] [address] [place] [address] HIP, UNI W/ Pelvis 2-3 Views MR#: [id number] Acct: [id number] Name: DEANN DEGROOT Rep #: [id number] : 1945 F 78 From: Favian Hutchinson MD PCP: Dr. Steff Tobias MD Status: REG CLI Study: HIP, UNI W/ Pelvis 2-3 Views Date of Exam: Exam# [id number] Ordering Dr: Steff Tobias MD [id number] STUDY: X-RAY - PELVIS AND LEFT HIP REASON FOR EXAM: Female, 78 years old. Back muscle spasms. TECHNIQUE: 3 views of the pelvis and hip. COMPARISON: August 22, 2004 FINDINGS: There is a normal gas pattern. Phleboliths. Osteopenia. Lower lumbosacral fusion which is new since the prior study. Normal bilateral iliac wings, sacroiliac joints and visualized sacrum. Normal bilateral superior and inferior pubic rami. Normal pubic symphysis. Normal bilateral ischial tuberosities. Mild arthrosis of both hips. RAD/HIP, UNI W/ Pelvis 2-3 Views IMPRESSION: New lower lumbosacral fusion with mild arthrosis of both hips. Electronically Signed: Favian Hutchinson MD at 11:54 EDT Reading Location ID and State: [address] [place] [address] , Service support , CC: Dr. Steff Tobias MD [employer]er: Signed Normal [facility] L/S Spine Min 4 Views03-02 L/S Spine Min 4 Views [facility] [address] [place] [address] L/S Spine Min 4 Views MR#: [id number] Acct: [id number] Name: DEANN DEGROOT Rep #: [id number] : 1945 F 78 From: Favian Hutchinson MD PCP: Dr. Steff Tobias MD Status: REG CLI Study: L/S Spine Min 4 Views Date of Exam: 03/17/24 Exam# [id number] Ordering Dr: Steff Tobias MD [id number] STUDY: X-RAY - LUMBAR SPINE REASON FOR EXAM: Female, 78 years old. Muscle spasms back. TECHNIQUE: 5 view(s) of the lumbar spine were obtained. COMPARISON: December 19, 2023 FINDINGS: Osteopenia with slight reversal of the normal lordosis, unchanged. Marked rotatory levoscoliosis of the upper lumbar spine unchanged. 4 mm of anterolisthesis of L4 on L5 unchanged Posterior fusion from L3 to L5 with intervertebral disc prostheses and cancellus screws projected from the left side laterally at L3 and L4, unchanged in position and alignment. No complicating features identified. Diffuse lower thoracic and to a greater degree lumbosacral facet sclerosis. Marked intervertebral disc space narrowing at T11-T12 and to the greatest degree T12-L1 and L1-L2. Stable loss of height of the L2 vertebral body. Phleboliths. RAD/L/S Spine Min 4 Views IMPRESSION: Osteopenia with stable scoliosis, lower lumbosacral fusion, loss of height of the L1 vertebral body and moderate to marked lower thoracic and lumbosacral spondylosis. Electronically Signed: Favian Hutchinson MD at 13:19 EDT Reading Location ID and State: [facility] / [place] , Service support , CC: Dr. Steff Tobias MD [employer]er: Signed Normal [facility] Lumbar Spine 2 or 3 Viewson 12-19-2023 Lumbar Spine 2 or [address] [facility] [address] [place] [address] Lumbar Spine 2 or 3 Views MR#: [id number] Acct: [id number] Name: DEANN DEGROOT Rep #: [id number] : 1945 F 78 From: Dangelo Boss PCP: Dr. Steff Tobias MD Status: DEP AMB Study: Lumbar Spine 2 or 3 Views Date of Exam: Exam# [id number] Ordering Dr: Walter Chang MD [id number] INDICATION: s/p fusion -- Please do upright AP lateral EXAMINATION/TECHNIQUE : X-RAY - XR Spine Lumbar 2 or 3 Views COMPARISON: None. __ FINDINGS: VERTEBRAE: 1. Vertebral body height and alignment are unchanged, again noted are postoperative changes of pedicle screw posterior fixation from L3 to L5. Anterior interbody fusion also noted without change. There are findings consistent with laminectomy defects. 2. There is a levoscoliotic curvature contributed by wedge configuration of the L2 vertebral body however findings are stable. Moderate osteophyte formation. DISCS: Without interval change, interbody fusions at L3-4 and L4-5. INCLUDED ABDOMEN: Included bowel gas pattern is non-obstructive. RAD/Lumbar Spine 2 or 3 Views IMPRESSION: 1. Stable examination without evidence of acute fracture or hardware failure. 2. Pedicle screw posterior fixation laminectomy defects and anterior interbody fusion from C3 to C5. 3. Levoscoliotic curvature centered at L2 contributed by wedge configuration of L2 without change. 4. No acute destructive bony process fracture or acutely acquired malalignment. Electronically Signed: Dangelo Rosas MD at 22:48 EDT , CC: Dr. Walter Chang MD; Dr. Steff Tobias MD [employer]er: Signed Normal [facility] Orthopedic Visit Reporton Orthopedic Visit Report [facility] [address] [place] [address] [address] [place] [address] OFFICE VISIT Date of Service: 12/19/23 MR#: [id number] Acct: [id number] Name: DEANN DEGROOT Rep #: [id number] : 1945 Provider: Dr. Waletr Chang MD Age/Sex: 78/F Location[facility] Status: Signed Intake Vital Signs 09/18/23 15:59 Height 5 ft 6 in Intake Visit Reasons: LUMBAR SPINE Chief Complaint: Lumbar Spine 3 month Post-Op Accompanied by: Self Is patient in pain?: No Allergies amoxicillin trihydrate (From Augmentin) Allergy (Verified 12/19/23 10:33) Rash potassium clavulanate (From Augmentin) Allergy (Verified 12/19/23 10:33) Rash Medications ???Medication ???Instructions ???Recorded ???Confirmed ???Type pantoprazole 40 mg tablet,delayed 40 mg PO DAILY GERD 05/06/14 12/19/23 History release simvastatin 80 mg tablet 80 mg PO QHS CHOLESTEROL 05/06/14 12/19/23 History estradiol 1 mg tablet 1 mg PO DAILY HORMONE 06/01/23 12/19/23 History metformin 500 mg tablet 1,000 mg PO BID DIABETES 06/01/23 12/19/23 History valsartan 320 mg tablet 320 mg PO DAILY BP 06/01/23 12/19/23 History medroxyprogesterone 5 mg tablet 5 mg PO DAILY HOT FLASHES 07/19/23 12/19/23 History pioglitazone 30 mg tablet (Actos) 30 mg PO DAILY DIABETES 09/04/23 12/19/23 History acetaminophen 500 mg tablet 500 mg PO Q6H 7 days #28 tabs 09/20/23 12/19/23 Rx methocarbamol 500 mg tablet 750 mg (1.5 x 500 mg) PO Q8H PRN 09/20/23 12/19/23 Rx Pain/spasms 7 days #28 tabs sennosides 8.6 mg-docusate sodium 2 tab PO BID PRN constipation 7 09/20/23 12/19/23 Rx 50 mg tablet (Stool days #28 tabs Softener-Stimulant Laxative) PFSH Medical History Post-menopausal History of steroid therapy Diabetes High cholesterol Restless legs Back pain Dietary restriction Gastric reflux Former smoker Shortness of breath on exertion History of edema Type 2 diabetes mellitus without complications Hypertension Surgical History Hx of colonoscopy Hx of foot surgery History of vein stripping Hx of breast biopsy Hx of blepharoplasty Hx of left cataract extraction Hx of right cataract extraction History of hysteroscopy H/O abdominoplasty Social History Smoking Status: Former smoker HPI LUMBAR SPINE Details: This documentation accurately reflects the service provided and the decisions made by me, Dr. Walter Chang MD 12/19/23 1030. Part of today???s visit was documented by Kari Martins ATC, acting as scribe. DEANN DEGROOT is a 78 year old F here today for s/p L3-5 oblique lumbar interbody fusion (OLIF) DOS 09/18/2023. Patient states she is not having any pain in her lumbar spine today. Patient states she finished physical therapy and she states it did seem to help her especially with her right leg. Patient states she does not have any concerns following her surgery. She states she has been taking vitamins and states it has been helping with her osteoporosis. She states she has gotten bands to help strengthen her hips as well. Deann is now 3 months status post above-mentioned surgery. She is doing great. She is walking good amounts of distances. She avoids heavy lifting and work that she thinks might cause her soreness. She has residual right buttock soreness when she sits on hard surfaces. Ortho Exam General General: Yes no acute distress Neurologic: Yes alert and Yes oriented x3 Spine SPINE TESTING CERVICAL THORACIC LUMBAR Musculoskeletal Strength 0=absent - 5=normal Details: Examination the back and belly show incisions well-healed. Neurologic evaluation of lower extremity shows 5 x 5 power normal shows normal sensations in all dermatomes. Bilateral hip flexion is reduced in range of motion. Coding Level of Care Code Global Post Op Diagnoses Status post lumbar spinal fusion Z98.1 Assessment and Plan Assessment and Plan (1) Status post lumbar spinal fusion: Status: Acute Orders: Orders Lumbar Spine 2 or 3 Views Today Z98.1 - Arthrodesis status Plan X-rays done today in the clinic show hardware and bone graft in good position with good fusion. Patient is now 3-month status post above-mentioned surgery. She is no longer under any hard restrictions as far as lifting bending twisting is concerned. She may continue to increase her activity level to the level that she is comfortable with. She will follow-up with us in 9 months for 1 year follow-up visit. Patient was in agreement. 12/19/23 1407 Date Walter Chang MD Cosigner Signature: Date (if ap (more content not included)... Normal [facility] ANKLE COMPLETE RTon 10-21-19 24 ANKLE COMPLETE RT [address] [address] Patient: DEANN DEGROOT Phone#: : 1945 Age: 78 Gender: F Pt. Type: ER Account: [id number] Location: [facility] Ordering: RADHA CADENA Exam Date: 10/21/2023/16:37 Family Phys: STEFF TOBIAS Charge Code: 440049 Physician: [place] Order #: [id number] Dose#: PROCEDURE: X-RAY ANKLE COMPLETE RT MIN 3 VIEWS COMPARISON: None. INDICATIONS: Trauma. FINDINGS: BONES: Normal. No significant arthropathy or acute abnormality. SOFT TISSUES: Soft tissue edema is present circumferentially. There is irregularity of the skin contour anteriorly consistent with laceration. There is radiopaque foreign body versus debris on the skin surface anteriorly and medially. EFFUSION: None visible. OTHER: Negative. CONCLUSION: 1. There is no evidence of acute bone abnormality. 2. Soft tissue edema. Irregularly-shaped increase in density consistent with debris on the skin surface versus foreign body related to laceration. Dictated by: Danelle Baptiste MD on 10/21/2023 at 17:38 Approved by: Danelle Baptiste MD on 10/21/2023 at 17:40 Normal [facility] Thin prep Papanicolaou smear with manual screeningOrdered By: Walter Chang on 09-20-2023 Thin prep Papanicolaou smear with manual screening 179 mg/dL 74-106 [facility] Comment on above: MANAGEMENT OF PATIEN T CARE PER NURSING PROTOCOL Basophil percentageOrdered B y: Walter Chang on 09-19-2023 Chloride [Moles/Vol] 107 mmol/L 98-107 [facility] Glucose [Mass/Vol] 178 mg/dL 74-106 [facility] Comment on above: Fasting Glucose resu lt greater than or equal to 126 mg/dL suggests DIABETES MELLITUS per A.D.A. criteria. Hemoglobin (Bld) [Mass/Vol] 10.5 g/dL 12.0-15.0 [facility] Potassium [Moles/Vol] 4.0 mmol/L 3.5-5.1 [facility] Sodium [Moles/Vol] 136 mmol/L 136-145 [facility] WBC (Bld) [#/Vol] 10.5 10*3/uL 4.4-11.0 [facility] Determination of erythrocyte mean corpuscular volume (MCV)Ordered By: Walter Chang on 09-19-2023 MCV (RBC) [Entitic vol] 88.7 fL 81-99 [facility] Erythrocyte distribution wid th ratioOrdered By: Walter Chang on 09-19-2023 Erythrocyte distribution width (RBC) [Ratio] 15.1 % 11.6-14.6 [facility] Erythrocyte distribution wid th standard deviationOrdered By: [facility] Bernardo on 09-19-2023 Erythrocyte distribution width (RBC) [Entitic vol] 48.8 fL 35.1-43.9 [facility] Hematocrit Auto (Bld) [Volum e fraction]Ordered By: Waltremaría Chang on 09-19-2023 Hematocrit (Bld) [Volume fraction] 32.1 % 37-47 [facility] - Chemistry and C hemistry - challengeOrdered By: Walter Chang on 09-19-2023 CO2 [Moles/Vol] 21.0 mmol/L 21.0-32.0 [facility] Urea nitrogen/Creatinine [Mass ratio] 24.3 mg/mg 10-20 [facility] - Hematology and Cell countsOrdered By: Walter Chang on 09-19-2023 MCH (RBC) [Entitic mass] 29.0 pg 27.0-32.0 [facility] MCHC (RBC) [Mass/Vol] 32.7 g/dL 32-36 [facility] Platelet mean volume (Bld) [Entitic vol] 9.3 fL 6.2-12.0 [facility] Platelets (Bld) [#/Vol] 205 10*3/uL 150-450 [facility] No Panel InformationOrdered By: Walter Chang on 09-19-2023 Estimated Creatinine Clearance Calc 50.98 ml/min [facility] Estimated GFR (MDRD) Amer 64 mL/min >60 [facility] Comment on above: GFR Calc Estimated GFR (MDRD) Non-Af Amer 53 mL/min >60 [facility] Comment on above: Non- GFR Calc RBC Auto (Bld) [#/Vol]Ordere d By: Walter Chang on 09-19-2023 RBC (Bld) [#/Vol] 3.62 10*6/uL 4.2-5.4 [facility] Serum or plasma calcium jacinto urement (mass/volume)Ordered By: Walter Chang on 09-19-2023 Calcium [Mass/Vol] 8.5 mg/dL 8.5-10.1 [facility] Serum or plasma creatinine m easurement (mass/volume)Ordered By: Walter Chang on 09-19-2023 Creatinine [Mass/Vol] 1.07 mg/dL 0.55-1.02 [facility] Comment on above: The validity of the calculated GFR & GFRAA in patients over 70 years has not been determined. Clinical correlation is essential. Serum or plasma urea nitroge n measurement (mass/volume)Ordered By: Walter Chang on 09-19-2023 Urea nitrogen [Mass/Vol] 26 mg/dL 7-18 [facility] Thin prep Papanicolaou smear with manual screeningOrdered By: Walter Chang on 09-19-2023 Thin prep Papanicolaou smear with manual screening 8 5-15 [facility] HIV 1 and HIV-2 antibody ass ay with HIV-1 p24 antigen detectionOrdered By: ED PROVIDER on 09-18-2023 HIV 1+2 Ab+HIV1 p24 Ag IA Ql Non-Reactive Nonreactive [facility] No Panel InformationOrdered By: ED PROVIDER on 09-18-2023 Hepatitis B Surface Antigen Non-Reactive Nonreactive [facility] Hepatitis C Antibody Non-Reactive Nonreactive [facility] Comment on above: Non Reactive: < 0.8 Equivocal: >/= 0.8 to < 1.0 Reactive: >/= 1.0The CDC requires that a reactive/equivocal HCV antibody result be sent out for confirmation. HCV Quant by PCR testing. Serum hepatitis B virus core antibody detectionOrdered By: ED PROVIDER on 09-18-2023 HBV core Ab Ql (S) Negative Negative [facility] Comment on above: Performed at: [address] [id number] Director: Evaristo Cardenas PhD, Phone: [phone] Serum hepatitis B virus surf stu antibody IgG detectionOrdered By: ED PROVIDER on 09-18-2023 HBV surface IgG Ql (S) Reactive [facility] Comment on above: Non Reactive: Incons istent with immunity less than <10 mIU/mL Reactive: Consistent with immunity greater than or equal to 10 mIU/mL Whole blood hemoglobin A1c/t otal hemoglobin ratio (mass fraction)Ordered By: Walter Chang on 09-10-2023 HbA1c (Bld) [Mass fraction] 7.2 % 3.8-5.6 [facility] Comment on above: Normal < 5.7 % Predi abetic 5.7 - 6.4 % Diabetic >or= 6.5 % Please note range changes. Absolute lymphocyte countOrd ered By: Walter Chang on 08-14-2023 Lymphocytes Auto (Unsp spec) [#/Vol] 1.02 10*3/uL 0.83-4.51 [facility] Automated lymphocyte count a s percentage of total leukocytesOrdered By: Walter Chang on 08-14-2023 Lymphocytes/100 WBC Auto (Unsp spec) 13.6 % 19-41 [facility] Basophil percentageOrdered B y: Walter Chang on 08-14-2023 Basophils/100 WBC (Bld) 1.2 % 0-1 [facility] Eosinophils/100 WBC (Bld) 3.6 % 0-5 [facility] Monocytes/100 WBC (Bld) 6.3 % 0-10 [facility] Neutrophils (Bld) [#/Vol] 5.6 10*3/uL 2.0-7.7 [facility] Neutrophils/100 WBC (Bld) 74.8 % 47-70 [facility] [facility] platelet adequacy dete ction by light microscopyOrdered By: Walter Chang on 08-14-2023 Platelets LM Ql (Bld) ADEQUATE ADEQ [facility] Immature granulocytes/100 WB C Auto (Bld)Ordered By: Walter Chang on 08-14-2023 Immature granulocytes/100 WBC (Bld) 0.500 % 0.0-0.9 [facility] Comment on above: IG% - Immature Granu locytes (promyelocytes, myelocytes and metamyelocytes) > 1% indicates that a LEFT SHIFT is Present. Laboratory - Chemistry and C hemistry - challengeOrdered By: Margarito Figueroa on 08-14-2023 Magnesium [Mass/Vol] 1.9 mg/dL 1.6-2.6 [facility] Laboratory - Hematology and Cell countsOrdered By: Walter Chang on 08-14-2023 Nucleated RBC/100 WBC (Bld) [Ratio] 0 % 0-5 [facility] No Panel InformationOrdered By: Walter Chang on 08-14-2023 Hepatitis A Antibody Total Negative Negative [facility] Comment on above: Comment: The HAV tot al antibody assay detects both IgG andIgM but does not differentiate between them. A negativeresult suggests susceptibility to infection. A positiveresult could be due to vaccination, previously resolvedinfection or active infection. Testing for HAV IgM shouldbe performed if active HAV infection is suspected. [facility] profiles that will automatically reflex positive HAVtotal antibody results to IgM (e.g., panel #[id number] HAVAntibody w/ Rfx).Performed at: [address] [id number] Director: Evaristo Cardenas PhD, Phone: [phone] Nasal Screen MRSA/MSSA [facility] Laboratory - Microbiology an d Antimicrobial susceptibilityOrdered By: Steff Tobias on 07-16-2023 SARS-CoV-2 (COVID-19) RNA ADEEL+probe Ql (Unsp spec) SARS-CoV-2 (COVID 19 PCR) [facility] SARS-CoV-2 (COVID-19) RNA ADEEL+probe Ql (Unsp spec) SARS-CoV-2 (COVID 19 PCR) [facility] Absolute lymphocyte countOrd ered By: Steff Tobias on 05-30-2023 Lymphocytes Auto (Unsp spec) [#/Vol] 1.07 10*3/uL 0.83-4.51 [facility] Basophil percentageOrdered B y: Steff Tobias on 05-30-2023 Basophils/100 WBC (Bld) 0.6 % 0-1 [facility] Bilirubin [Mass/Vol] 0.50 mg/dL 0.20-1.00 [facility] Comment on above: For patients on eltr ombopag therapy, use of Dimension [place] TBIL is not recommended. Chloride [Moles/Vol] 107 mmol/L 98-107 [facility] Eosinophils/100 WBC (Bld) 1.4 % 0-5 [facility] Glucose [Mass/Vol] 263 mg/dL 74-106 [facility] Comment on above: Glucose result great er than or equal to 200 mg/dLsuggests DIABETES MELLITUS per A.D.A. criteria. Neutrophils (Bld) [#/Vol] 4.7 10*3/uL 2.0-7.7 [facility] Neutrophils/100 WBC (Bld) 74.5 % 47-70 [facility] Potassium [Moles/Vol] 3.9 mmol/L 3.5-5.1 [facility] Protein [Mass/Vol] 6.9 g/dL 6.4-8.2 [facility] Sodium [Moles/Vol] 138 mmol/L 136-145 [facility] WBC (Bld) [#/Vol] 6.3 10*3/uL 4.4-11.0 [facility] Blood erythrocytes count (nu mber/volume)Ordered By: Steff Tobias on 05-30-2023 RBC (Bld) [#/Vol] 4.56 10*6/uL 4.2-5.4 [facility] Blood hemoglobin measurement (mass/volume)Ordered By: Steff Tobias on 05-30-2023 Hemoglobin (Bld) [Mass/Vol] 12.6 g/dL 12.0-15.0 [facility] Blood lymphocytes/100 leukoc ytesOrdered By: Steff Tobias on 05-30-2023 Lymphocytes/100 WBC (Bld) 17.1 % 19-41 [facility] Blood monocytes/100 leukocyt esOrdered By: Steff Tobias on 05-30-2023 Monocytes/100 WBC (Bld) 5.9 % 0-10 [facility] Blood platelet mean volumeOr dered By: Steff Tobias on 05-30-2023 Platelet mean volume (Bld) [Entitic vol] 9.4 fL 6.2-12.0 [facility] Determination of erythrocyte mean corpuscular volume (MCV)Ordered By: Steff Tobias on 05-30-2023 MCV (RBC) [Entitic vol] 89.0 fL 81-99 [facility] Hematocrit Auto (Bld) [Volum e fraction][facility] Hematocrit (Bld) [Volume fraction] 40.6 % 37-47 [facility] Laboratory - Chemistry and C hemistry - challengeOrdered By: [facility] 05-30-2023 ALP [Catalytic activity/Vol] 106 U/L 45-117 [facility] ALT [Catalytic activity/Vol] 14 U/L 13-56 [facility] CO2 [Moles/Vol] 25.0 mmol/L 21.0-32.0 [facility] Globulin (S) [Mass/Vol] 3.6 g/dL 2.2-4.2 [facility] Urea nitrogen/Creatinine [Mass ratio] 16.2 mg/mg 10-20 [facility] Laboratory - Hematology and Cell countsOrdered By: [facility] 05-30-2023 Erythrocyte distribution width (RBC) [Entitic vol] 43.5 fL 35.1-43.9 [facility] Erythrocyte distribution width (RBC) [Ratio] 13.4 % 11.6-14.6 [facility] Immature granulocytes/100 WBC (Bld) 0.500 % 0.0-0.9 [facility] Comment on above: IG% - Immature Granu locytes (promyelocytes, myelocytes and metamyelocytes) > 1% indicates that a LEFT SHIFT is Present. MCH (RBC) [Entitic mass] 27.6 pg 27.0-32.0 [facility] Nucleated RBC/100 WBC (Bld) [Ratio] 0 % 0-5 [facility] MCHC Auto (RBC) [Mass/Vol]Or dered By: Steff Tobias on 05-30-2023 MCHC (RBC) [Mass/Vol] 31.0 g/dL 32-36 [facility] No Panel InformationOrdered By: Steff Tobias on 05-30-2023 Estimated GFR (MDRD) Amer 58 mL/min >60 [facility] Comment on above: GFR Calc Estimated GFR (MDRD) Non-Af Amer 48 mL/min >60 [facility] Comment on above: Non- GFR Calc Thyroid Stimulating Hormone (TSH) 1.54 uIU/mL 0.358-3.74 [facility] Vitamin D 25-Hydroxy 32.4 ng/mL [facility] Comment on above: Vitamin D 25(OH) Sta tus Range Deficiency <20 ng/mL (50nmol/L) Insufficiency 20 - 30 ng/mL (50 - 75 nmol/L) Sufficiency 30 - 100 ng/mL (75 - 250 nmol/L) Toxicity >100 ng/mL (>250 nmol/L) Platelets bldOrdered By: Steff Tobias on 05-30-2023 Platelets (Bld) [#/Vol] 252 10*3/uL 150-450 [facility] Serum or plasma albumin jacinto urement (mass/volume)Ordered By: Steff Tobias on 05-30-2023 Albumin [Mass/Vol] 3.3 g/dL 3.2-5.0 [facility] Serum or plasma albumin/glob ulin mass ratioOrdered By: Steff Tobias 05-30-2023 Albumin/Globulin [Mass ratio] 0.9 {ratio} 0.9-2.4 [facility] Serum or plasma calcium jacinto urement (mass/volume)Ordered By: Steff Tobias on 05-30-2023 Calcium [Mass/Vol] 8.8 mg/dL 8.5-10.1 [facility] Serum or plasma creatinine m easurement (mass/volume)Ordered By: Steff Tobias on 05-30-2023 Creatinine [Mass/Vol] 1.17 mg/dL 0.55-1.02 [facility] Comment on above: The validity of the calculated GFR & GFRAA in patients over 70 years has not been determined. Clinical correlation is essential. Serum or plasma urea nitroge n measurement (mass/volume)Ordered By: Steff Tobias on 05-30-2023 Urea nitrogen [Mass/Vol] 19 mg/dL 7-18 [facility] Thin prep Papanicolaou smear with manual screeningOrdered By: Steff Tobias on 05-30-2023 Thin prep Papanicolaou smear with manual screening 12 U/L 15-37 [facility] Thin prep Papanicolaou smear with manual screening 6 5-15 [facility] Culture, urineOrdered By: John Tobias on 02-27-2023 Bacteria identified Cx Nom (U) Escherichia coli [facility] Basophil percentageOrdered B y: Brunilda Loyd on 02-23-2023 Bilirubin [Mass/Vol] 0.50 mg/dL 0.20-1.00 [facility] Comment on above: For patients on eltr ombopag therapy, use of Dimension [place] TBIL is not recommended. Chloride [Moles/Vol] 103 mmol/L 98-107 [facility] Glucose [Mass/Vol] 164 mg/dL 74-106 [facility] Comment on above: Fasting Glucose resu lt greater than or equal to 126 mg/dL suggests DIABETES MELLITUS per A.D.A. criteria. Potassium [Moles/Vol] 4.0 mmol/L 3.5-5.1 [facility] Protein [Mass/Vol] 7.6 g/dL 6.4-8.2 [facility] Sodium [Moles/Vol] 136 mmol/L 136-145 [facility] Laboratory - Chemistry and C hemistry - challengeOrdered By: Brunilda Loyd on 02-23-2023 ALP [Catalytic activity/Vol] 121 U/L 45-117 [facility] ALT [Catalytic activity/Vol] 21 U/L 13-56 [facility] CO2 [Moles/Vol] 28.0 mmol/L 21.0-32.0 [facility] Globulin (S) [Mass/Vol] 4.0 g/dL 2.2-4.2 [facility] Urea nitrogen/Creatinine [Mass ratio] 21.3 mg/mg 10-20 [facility] No Panel InformationOrdered By: Brunilda Loyd on 02-23-2023 Estimated GFR (MDRD) Amer 49 mL/min >60 [facility] Comment on above: GFR Calc Estimated GFR (MDRD) Non-Af Amer 40 mL/min >60 [facility] Comment on above: Non- GFR Calc Serum or plasma albumin jacinto urement (mass/volume)Ordered By: Brunilda Loyd on 02-23-2023 Albumin [Mass/Vol] 3.6 g/dL 3.2-5.0 [facility] Serum or plasma albumin/glob ulin mass ratioOrdered By: Brunilda Loyd on 02-23-2023 Albumin/Globulin [Mass ratio] 0.9 {ratio} 0.9-2.4 [facility] Serum or plasma calcium jacinto urement (mass/volume)Ordered By: Brunilda Loyd on 02-23-2023 Calcium [Mass/Vol] 9.6 mg/dL 8.5-10.1 [facility] Serum or plasma creatinine m easurement (mass/volume)Ordered By: Brunilda Loyd on 02-23-2023 Creatinine [Mass/Vol] 1.36 mg/dL 0.55-1.02 [facility] Comment on above: The validity of the calculated GFR & GFRAA in patients over 70 years has not been determined. Clinical correlation is essential. Serum or plasma urea nitroge n measurement (mass/volume)Ordered By: Brunilda Loyd on 02-23-2023 Urea nitrogen [Mass/Vol] 29 mg/dL 7-18 [facility] Thin prep Papanicolaou smear with manual screeningOrdered By: Brunilda Loyd on 02-23-2023 Thin prep Papanicolaou smear with manual screening 19 U/L 15-37 [facility] Thin prep Papanicolaou smear with manual screening 5 5-15 [facility] Absolute lymphocyte countOrd ered By: Dr. Tobias on 11-15-2022 Lymphocytes Auto (Unsp spec) [#/Vol] 1.42 10*3/uL 0.83-4.51 [facility] Basophil percentageOrdered B y: Dr. Tobias on 11-15-2022 Basophils/100 WBC (Bld) 0.8 % 0-1 [facility] Bilirubin [Mass/Vol] 0.50 mg/dL 0.20-1.00 [facility] Comment on above: For patients on eltr ombopag therapy, use of Dimension [place] TBIL is not recommended. Chloride [Moles/Vol] 109 mmol/L 98-107 [facility] Eosinophils/100 WBC (Bld) 1.5 % 0-5 [facility] Glucose [Mass/Vol] 169 mg/dL 74-106 [facility] Comment on above: Fasting Glucose resu lt greater than or equal to 126 mg/dL suggests DIABETES MELLITUS per A.D.A. criteria. Neutrophils (Bld) [#/Vol] 4.5 10*3/uL 2.0-7.7 [facility] Neutrophils/100 WBC (Bld) 69.6 % 47-70 [facility] Potassium [Moles/Vol] 4.0 mmol/L 3.5-5.1 [facility] Protein [Mass/Vol] 7.3 g/dL 6.4-8.2 [facility] Sodium [Moles/Vol] 140 mmol/L 136-145 [facility] WBC (Bld) [#/Vol] 6.5 10*3/uL 4.4-11.0 [facility] Blood erythrocytes count (nu mber/volume)Ordered By: Dr. Tobias on 11-15-2022 RBC (Bld) [#/Vol] 4.92 10*6/uL 4.2-5.4 [facility] Blood hemoglobin measurement (mass/volume)Ordered By: Dr. Tobias on 11-15-2022 Hemoglobin (Bld) [Mass/Vol] 13.1 g/dL 12.0-15.0 [facility] Blood lymphocytes/100 leukoc ytesOrdered By: Dr. Tobias on 11-15-2022 Lymphocytes/100 WBC (Bld) 21.7 % 19-41 [facility] Blood monocytes/100 leukocyt esOrdered By: Dr. Tobias on 11-15-2022 Monocytes/100 WBC (Bld) 6.1 % 0-10 [facility] Blood platelet mean volumeOr dered By: Dr. Tobias on 11-15-2022 Platelet mean volume (Bld) [Entitic vol] 9.5 fL 6.2-12.0 [facility] Determination of erythrocyte mean corpuscular volume (MCV)Ordered By: Dr. Tobias on 11-15-2022 MCV (RBC) [Entitic vol] 83.1 fL 81-99 [facility] Hematocrit Auto (Bld) [Volum e fraction]Ordered By: Dr. Tobias on 11-15-2022 Hematocrit (Bld) [Volume fraction] 40.9 % 37-47 [facility] Laboratory - Chemistry and C hemistry - challengeOrdered By: Dr. Tobias on 11-15-2022 ALP [Catalytic activity/Vol] 108 U/L 45-117 [facility] ALT [Catalytic activity/Vol] 17 U/L 13-56 [facility] CO2 [Moles/Vol] 22.0 mmol/L 21.0-32.0 [facility] Globulin (S) [Mass/Vol] 3.9 g/dL 2.2-4.2 [facility] Urea nitrogen/Creatinine [Mass ratio] 20.2 mg/mg 10-20 [facility] Laboratory - Hematology and Cell countsOrdered By: Dr. Tobias on 11-15-2022 Erythrocyte distribution width (RBC) [Entitic vol] 43.4 fL 35.1-43.9 [facility] Erythrocyte distribution width (RBC) [Ratio] 14.4 % 11.6-14.6 [facility] Immature granulocytes/100 WBC (Bld) 0.300 % 0.0-0.9 [facility] Comment on above: IG% - Immature Granu locytes (promyelocytes, myelocytes and metamyelocytes) > 1% indicates that a LEFT SHIFT is Present. MCH (RBC) [Entitic mass] 26.6 pg 27.0-32.0 [facility] Nucleated RBC/100 WBC (Bld) [Ratio] 0 % 0-5 [facility] MCHC Auto (RBC) [Mass/Vol]Or dered By: Dr. Tobias on 11-15-2022 MCHC (RBC) [Mass/Vol] 32.0 g/dL 32-36 [facility] No Panel InformationOrdered By: Dr. Tobias on 11-15-2022 Estimated GFR (MDRD) Amer 60 mL/min >60 [facility] Comment on above: GFR Calc Estimated GFR (MDRD) Non-Af Amer 49 mL/min >60 [facility] Comment on above: Non- GFR Calc Thyroid Stimulating Hormone (TSH) 2.11 uIU/mL 0.358-3.74 [facility] Vitamin D 25-Hydroxy 33.2 ng/mL [facility] Comment on above: Vitamin D 25(OH) Sta tus Range Deficiency <20 ng/mL (50nmol/L) Insufficiency 20 - 30 ng/mL (50 - 75 nmol/L) Sufficiency 30 - 100 ng/mL (75 - 250 nmol/L) Toxicity >100 ng/mL (>250 nmol/L) Platelets bldOrdered By: Dr. Tobias on 11-15-2022 Platelets (Bld) [#/Vol] 254 10*3/uL 150-450 [facility] Serum or plasma albumin jacinto urement (mass/volume)Ordered By: Dr. Tobias on 11-15-2022 Albumin [Mass/Vol] 3.4 g/dL 3.2-5.0 [facility] Serum or plasma albumin/glob ulin mass ratioOrdered By: Dr. Tobias on 11-15-2022 Albumin/Globulin [Mass ratio] 0.9 {ratio} 0.9-2.4 [facility] Serum or plasma calcium jacinto urement (mass/volume)Ordered By: Dr. Tobias on 11-15-2022 Calcium [Mass/Vol] 9.6 mg/dL 8.5-10.1 [facility] Serum or plasma creatinine m easurement (mass/volume)Ordered By: Dr. Tobias on 11-15-2022 Creatinine [Mass/Vol] 1.14 mg/dL 0.55-1.02 [facility] Comment on above: The validity of the calculated GFR & GFRAA in patients over 70 years has not been determined. Clinical correlation is essential. Serum or plasma urea nitroge n measurement (mass/volume)Ordered By: Dr. Tobias on 11-15-2022 Urea nitrogen [Mass/Vol] 23 mg/dL 7-18 [facility] Thin prep Papanicolaou smear with manual screeningOrdered By: Dr. Tobias on 11-15-2022 Thin prep Papanicolaou smear with manual screening 20 U/L 15-37 [facility] Thin prep Papanicolaou smear with manual screening 9 5-15 [facility] Absolute lymphocyte counton 05-24-2022 Lymphocytes Auto (Unsp spec) [#/Vol] 1.43 10*3/uL 0.83-4.51 [facility] Work Phone: Basophil percentageon 2021 Basophils/100 WBC (Bld) 0.8 % 0-1 [facility] Work Phone: Bilirubin [Mass/Vol] 0.60 mg/dL 0.20-1.00 [facility] Work Phone: Comment on above: For patients on eltr ombopag therapy, use of Dimension [place] TBIL is not recommended. Chloride [Moles/Vol] 106 mmol/L 98-107 [facility] Work Phone: Eosinophils/100 WBC (Bld) 2.8 % 0-5 [facility] Work Phone: Glucose [Mass/Vol] 155 mg/dL 74-106 [facility] Work Phone: Comment on above: Fasting Glucose resu lt greater than or equal to 126 mg/dL suggests DIABETES MELLITUS per A.D.A. criteria. Neutrophils (Bld) [#/Vol] 4.4 10*3/uL 2.0-7.7 [facility] Work Phone: Neutrophils/100 WBC (Bld) 68.0 % 47-70 [facility] Work Phone: Potassium [Moles/Vol] 3.9 mmol/L 3.5-5.1 [facility] Work Phone: Protein [Mass/Vol] 7.2 g/dL 6.4-8.2 [facility] Work Phone: Sodium [Moles/Vol] 141 mmol/L 136-145 [facility] Work Phone: [phone] WBC (Bld) [#/Vol] 6.4 10*3/uL 4.4-11.0 [facility] Work Phone: [phone] Blood erythrocytes count (nu mber/volume)on 05-24-2022 RBC (Bld) [#/Vol] 4.58 10*6/uL 4.2-5.4 [facility] Work Phone: Blood hemoglobin measurement (mass/volume)on 05-24-2022 Hemoglobin (Bld) [Mass/Vol] 12.4 g/dL 12.0-15.0 [facility] Work Phone: Blood lymphocytes/100 leukoc yteson 05-24-2022 Lymphocytes/100 WBC (Bld) 22.3 % 19-41 [facility] Work Phone: Blood monocytes/100 leukocyt eson 05-24-2022 Monocytes/100 WBC (Bld) 5.6 % 0-10 [facility] Work Phone: Blood platelet mean volumeon 05-24-2022 Platelet mean volume (Bld) [Entitic vol] 9.7 fL 6.2-12.0 [facility] Work Phone: Determination of erythrocyte mean corpuscular volume (MCV)on 05-24-2022 MCV (RBC) [Entitic vol] 84.5 fL 81-99 [facility] Work Phone: Hematocrit Auto (Bld) [Volum e fraction]on 05-24-2022 Hematocrit (Bld) [Volume fraction] 38.7 % 37-47 [facility] Work Phone: Laboratory - Chemistry and C hemistry - challengeon 05-24-2022 ALP [Catalytic activity/Vol] 90 U/L 45-117 [facility] Work Phone: ALT [Catalytic activity/Vol] 16 U/L 13-56 [facility] Work Phone: CO2 [Moles/Vol] 27.0 mmol/L 21.0-32.0 [facility] Work Phone: Globulin (S) [Mass/Vol] 3.8 g/dL 2.2-4.2 [facility] Work Phone: Urea nitrogen/Creatinine [Mass ratio] 18.7 mg/mg 10-20 [facility] Work Phone: Laboratory - Hematology and Cell countson 05-24-2022 Erythrocyte distribution width (RBC) [Entitic vol] 46.3 fL 35.1-43.9 [facility] Work Phone: Erythrocyte distribution width (RBC) [Ratio] 15.2 % 11.6-14.6 [facility] Work Phone: Immature granulocytes/100 WBC (Bld) 0.500 % 0.0-0.9 [facility] Work Phone: Comment on above: IG% - Immature Granu locytes (promyelocytes, myelocytes and metamyelocytes) > 1% indicates that a LEFT SHIFT is Present. MCH (RBC) [Entitic mass] 27.1 pg 27.0-32.0 [facility] Work Phone: Nucleated RBC/100 WBC (Bld) [Ratio] 0.3 % 0-5 [facility] Work Phone: MCHC Auto (RBC) [Mass/Vol]on 05-24-2022 MCHC (RBC) [Mass/Vol] 32.0 g/dL 32-36 [facility] Work Phone: No Panel Informationon 05-24 Estimated GFR (MDRD) Amer 64 mL/min >60 [facility] Work Phone: Comment on above: GFR Calc Estimated GFR (MDRD) Non-Af Amer 53 mL/min >60 [facility] Work Phone: Comment on above: Non- GFR Calc Thyroid Stimulating Hormone (TSH) 2.37 uIU/mL 0.358-3.74 [facility] Work Phone: Vitamin D 25-Hydroxy 37.5 ng/mL [facility] Work Phone: Comment on above: Vitamin D 25(OH) Sta tus Range Deficiency <20 ng/mL (50nmol/L) Insufficiency 20 - 30 ng/mL (50 - 75 nmol/L) Sufficiency 30 - 100 ng/mL (75 - 250 nmol/L) Toxicity >100 ng/mL (>250 nmol/L) Platelets bldon 11-23-2022 Platelets (Bld) [#/Vol] 234 10*3/uL 150-450 [facility] Work Phone: Serum or plasma albumin jacinto urement (mass/volume)on 05-24-2022 Albumin [Mass/Vol] 3.4 g/dL 3.2-5.0 [facility] Work Phone: Serum or plasma albumin/glob ulin mass ratioon 05-24-2022 Albumin/Globulin [Mass ratio] 0.9 {ratio} 0.9-2.4 [facility] Work Phone: Serum or plasma calcium jacinto urement (mass/volume)on 05-24-2022 Calcium [Mass/Vol] 9.0 mg/dL 8.5-10.1 [facility] Work Phone: Serum or plasma creatinine m easurement (mass/volume)on 05-24-2022 Creatinine [Mass/Vol] 1.07 mg/dL 0.55-1.02 [facility] Work Phone: Comment on above: The validity of the calculated GFR & GFRAA in patients over 70 years has not been determined. Clinical correlation is essential. Serum or plasma urea nitroge n measurement (mass/volume)on 05-24-2022 Urea nitrogen [Mass/Vol] 20 mg/dL 7-18 [facility] Work Phone: Thin prep Papanicolaou smear with manual screeningon 05-24-2022 Thin prep Papanicolaou smear with manual screening 14 U/L 15-37 [facility] Work Phone: Thin prep Papanicolaou smear with manual screening 8 5-15 [facility] Work Phone: Absolute lymphocyte counton 11-21-2021 Lymphocytes Auto (Unsp spec) [#/Vol] 1.25 10*3/uL 0.83-4.51 [facility] Work Phone: Basophil percentageon 2021 Basophils/100 WBC (Bld) 1.0 % 0-1 [facility] Work Phone: Bilirubin [Mass/Vol] 0.40 mg/dL 0.20-1.00 [facility] Work Phone: Comment on above: For patients on eltr ombopag therapy, use of Dimension [place] TBIL is not recommended. Chloride [Moles/Vol] 106 mmol/L 98-107 [facility] Work Phone: Eosinophils/100 WBC (Bld) 6.3 % 0-5 [facility] Work Phone: Glucose [Mass/Vol] 179 mg/dL 74-106 [facility] Work Phone: Comment on above: Fasting Glucose resu lt greater than or equal to 126 mg/dL suggests DIABETES MELLITUS per A.D.A. criteria. Neutrophils (Bld) [#/Vol] 4.2 10*3/uL 2.0-7.7 [facility] Work Phone: Neutrophils/100 WBC (Bld) 67.1 % 47-70 [facility] Work Phone: Potassium [Moles/Vol] 4.1 mmol/L 3.5-5.1 [facility] Work Phone: Protein [Mass/Vol] 6.9 g/dL 6.4-8.2 [facility] Work Phone: [phone] Sodium [Moles/Vol] 137 mmol/L 136-145 [facility] Work Phone: [phone] WBC (Bld) [#/Vol] 6.2 10*3/uL 4.4-11.0 [facility] Work Phone: Blood erythrocytes count (nu mber/volume)on 11-21-2021 RBC (Bld) [#/Vol] 4.43 10*6/uL 4.2-5.4 [facility] Work Phone: Blood hemoglobin measurement (mass/volume)on 11-21-2021 Hemoglobin (Bld) [Mass/Vol] 11.5 g/dL 12.0-15.0 [facility] Work Phone: [phone] Blood lymphocytes/100 leukoc yteson 11-21-2021 Lymphocytes/100 WBC (Bld) 20.2 % 19-41 [facility] Work Phone: Blood monocytes/100 leukocyt eson 11-21-2021 Monocytes/100 WBC (Bld) 5.2 % 0-10 [facility] Work Phone: Blood platelet mean volumeon 11-21-2021 Platelet mean volume (Bld) [Entitic vol] 9.3 fL 6.2-12.0 [facility] Work Phone: Determination of erythrocyte mean corpuscular volume (MCV)on 11-21-2021 MCV (RBC) [Entitic vol] 83.5 fL 81-99 [facility] Work Phone: [phone] Hematocrit Auto (Bld) [Volum e fraction]on 11-21-2021 Hematocrit (Bld) [Volume fraction] 37.0 % 37-47 [facility] Work Phone: Laboratory - Chemistry and C hemistry - challengeon 11-21-2021 ALP [Catalytic activity/Vol] 86 U/L 45-117 [facility] Work Phone: ALT [Catalytic activity/Vol] 19 U/L 13-56 [facility] Work Phone: CO2 [Moles/Vol] 25.0 mmol/L 21.0-32.0 [facility] Work Phone: Globulin (S) [Mass/Vol] 3.6 g/dL 2.2-4.2 [facility] Work Phone: Urea nitrogen/Creatinine [Mass ratio] 17.1 mg/mg 10-20 [facility] Work Phone: Laboratory - Hematology and Cell countson 11-21-2021 Erythrocyte distribution width (RBC) [Entitic vol] 45.8 fL 35.1-43.9 [facility] Work Phone: Erythrocyte distribution width (RBC) [Ratio] 15.0 % 11.6-14.6 [facility] Work Phone: Immature granulocytes/100 WBC (Bld) 0.200 % 0.0-0.9 [facility] Work Phone: Comment on above: IG% - Immature Granu locytes (promyelocytes, myelocytes and metamyelocytes) > 1% indicates that a LEFT SHIFT is Present. MCH (RBC) [Entitic mass] 26.0 pg 27.0-32.0 [facility] Work Phone: Nucleated RBC/100 WBC (Bld) [Ratio] 0 % 0-5 [facility] Work Phone: MCHC Auto (RBC) [Mass/Vol]on 11-21-2021 MCHC (RBC) [Mass/Vol] 31.1 g/dL 32-36 [facility] Work Phone: No Panel Informationon 11-21 Estimated GFR (MDRD) Amer 58 mL/min >60 [facility] Work Phone: Comment on above: GFR Calc Estimated GFR (MDRD) Non-Af Amer 48 mL/min >60 [facility] Work Phone: Comment on above: Non- GFR Calc Thyroid Stimulating Hormone (TSH) 1.59 uIU/mL 0.358-3.74 [facility] Work Phone: Vitamin D 25-Hydroxy 36.5 ng/mL [facility] Work Phone: Comment on above: Vitamin D 25(OH) Sta tus Range Deficiency <20 ng/mL (50nmol/L) Insufficiency 20 - 30 ng/mL (50 - 75 nmol/L) Sufficiency 30 - 100 ng/mL (75 - 250 nmol/L) Toxicity >100 ng/mL (>250 nmol/L) Platelets bldon 11-21-2021 Platelets (Bld) [#/Vol] 255 10*3/uL 150-450 [facility] Work Phone: Serum or plasma albumin jacinto urement (mass/volume)on 11-21-2021 Albumin [Mass/Vol] 3.3 g/dL 3.2-5.0 [facility] Work Phone: Serum or plasma albumin/glob ulin mass ratioon 11-21-2021 Albumin/Globulin [Mass ratio] 0.9 {ratio} 0.9-2.4 [facility] Work Phone: Serum or plasma calcium jacinto urement (mass/volume)on 11-21-2021 Calcium [Mass/Vol] 8.9 mg/dL 8.5-10.1 [facility] Work Phone: Serum or plasma creatinine m easurement (mass/volume)on 11-21-2021 Creatinine [Mass/Vol] 1.17 mg/dL 0.55-1.02 [facility] Work Phone: Comment on above: The validity of the calculated GFR & GFRAA in patients over 70 years has not been determined. Clinical correlation is essential. Serum or plasma urea nitroge n measurement (mass/volume)on 11-21-2021 Urea nitrogen [Mass/Vol] 20 mg/dL 7-18 [facility] Work Phone: Thin prep Papanicolaou smear with manual screeningon 11-21-2021 Thin prep Papanicolaou smear with manual screening 17 U/L 15-37 [facility] Work Phone: Thin prep Papanicolaou smear with manual screening 6 5-15 [facility] Work Phone: Basophil percentageon 2021 Basophil percentage 2.9 mg/dL 2.5-4.9 [facility] Work Phone: Chloride [Moles/Vol] 107 mmol/L 98-107 [facility] Work Phone: Glucose [Mass/Vol] 140 mg/dL 74-106 [facility] Work Phone: Comment on above: Fasting Glucose resu lt greater than or equal to 126 mg/dL suggests DIABETES MELLITUS per A.D.A. criteria. Potassium [Moles/Vol] 4.2 mmol/L 3.5-5.1 [facility] Work Phone: Sodium [Moles/Vol] 139 mmol/L 136-145 [facility] Work Phone: Laboratory - Chemistry and C hemistry - challengeon 09-13-2021 CO2 [Moles/Vol] 25.0 mmol/L 21.0-32.0 [facility] Work Phone: Urea nitrogen/Creatinine [Mass ratio] 13.1 mg/mg 10-20 [facility] Work Phone: No Panel Informationon 09-13 Estimated GFR (MDRD) Amer 55 mL/min >60 [facility] Work Phone: Comment on above: GFR Calc Estimated GFR (MDRD) Non-Af Amer 46 mL/min >60 [facility] Work Phone: Comment on above: Non- GFR Calc Serum or plasma albumin jacinto urement (mass/volume)on 09-13-2021 Albumin [Mass/Vol] 3.6 g/dL 3.2-5.0 [facility] Work Phone: Serum or plasma calcium jacinto urement (mass/volume)on 09-13-2021 Calcium [Mass/Vol] 9.5 mg/dL 8.5-10.1 [facility] Work Phone: Serum or plasma creatinine m easurement (mass/volume)on 09-13-2021 Creatinine [Mass/Vol] 1.22 mg/dL 0.55-1.02 [facility] Work Phone: Comment on above: The validity of the calculated GFR & GFRAA in patients over 70 years has not been determined. Clinical correlation is essential. Serum or plasma urea nitroge n measurement (mass/volume)on 09-13-2021 Urea nitrogen [Mass/Vol] 16 mg/dL 7-18 [facility] Work Phone: Basophil percentageon 2021 Basophil percentage 10-25 SEEN /hpf [facility] Work Phone: Basophil percentage 2.2 mg/dL 2.5-4.9 [facility] Work Phone: Chloride [Moles/Vol] 106 mmol/L 98-107 [facility] Work Phone: Glucose [Mass/Vol] 254 mg/dL 74-106 [facility] Work Phone: Comment on above: Glucose result great er than or equal to 200 mg/dLsuggests DIABETES MELLITUS per A.D.A. criteria. Potassium [Moles/Vol] 4.1 mmol/L 3.5-5.1 [facility] Work Phone: Sodium [Moles/Vol] 137 mmol/L 136-145 [facility] Work Phone: Bilirubin Test strip Ql (U)o n 09-06-2021 Bilirubin Ql (U) Negative Negative [facility] Work Phone: Ketones Test strip Ql (U)on 09-06-2021 Ketones Ql (U) Negative Negative [facility] Work Phone: Laboratory - Chemistry and C hemistry - challengeon 09-06-2021 CO2 [Moles/Vol] 21.0 mmol/L 21.0-32.0 [facility] Work Phone: Urea nitrogen/Creatinine [Mass ratio] 16.2 mg/mg 10-20 [facility] Work Phone: Mucus LM Ql (Urine sed)on Mucus Ql (Urine sed) 0 SEEN /hpf [facility] Work Phone: Nitrite Test strip Ql (U)on 09-06-2021 Nitrite Ql (U) Negative Negative [facility] Work Phone: No Panel Informationon 09-06 Estimated GFR (MDRD) Amer 46 mL/min >60 [facility] Work Phone: Comment on above: GFR Calc Estimated GFR (MDRD) Non-Af Amer 38 mL/min >60 [facility] Work Phone: Comment on above: Non- GFR Calc Protein Test strip Ql (U)on 09-06-2021 Protein Ql (U) Negative Negative [facility] Work Phone: Serum or plasma albumin jacinto urement (mass/volume)on 09-06-2021 Albumin [Mass/Vol] 3.5 g/dL 3.2-5.0 [facility] Work Phone: Serum or plasma calcium jacinto urement (mass/volume)on 09-06-2021 Calcium [Mass/Vol] 9.2 mg/dL 8.5-10.1 [facility] Work Phone: Serum or plasma creatinine m easurement (mass/volume)on 09-06-2021 Creatinine [Mass/Vol] 1.42 mg/dL 0.55-1.02 [facility] Work Phone: Comment on above: The validity of the calculated GFR & GFRAA in patients over 70 years has not been determined. Clinical correlation is essential. Serum or plasma urea nitroge n measurement (mass/volume)on 09-06-2021 Urea nitrogen [Mass/Vol] 23 mg/dL 7-18 [facility] Work Phone: Squamous epithelial cells de tection in urine sediment by light microscopyon 09-06-2021 Epithelial cells.squamous LM Ql (Urine sed) 5-10 SEEN /hpf [facility] Work Phone: Urine blood detectionon RBC Ql (U) Negative Negative [facility] Work Phone: RBC Ql (U) 0 SEEN /hpf [facility] Work Phone: Urine clarityon 09-06-2021 Clarity (U) Sl. Cloudy Clear [facility] Work Phone: Urine color determinationon 09-06-2021 Color (U) Yellow Yellow [facility] Work Phone: Urine creatinine measurement (mass/volume)on 09-06-2021 Creatinine (U) [Mass/Vol] 75.80 mg/dL NO RANGE EST. [facility] Work Phone: Urine glucose detectionon Glucose Ql (U) Normal mg/dl Normal [facility] Work Phone: Urine leukocyte esterase det ection by dipstickon 09-06-2021 Leukocyte esterase Test strip Ql (U) 100 /ul Negative [facility] Work Phone: Urine pHon 09-06-2021 pH (U) 5.0 [pH] [facility] Work Phone: Urine protein measurement (m ass/volume)on 09-06-2021 Protein (U) [Mass/Vol] 12.2 mg/dL 0.0-11.8 [facility] Work Phone: Urine protein/creatinine mas s ratioon 09-06-2021 Protein/Creatinine (U) [Mass ratio] 161 mg/g CRE 0-200 [facility] Work Phone: Urine sediment bacteria coun t by microscopy (number/high power field)on 09-06-2021 Bacteria LM.HPF (Urine sed) [#/Area] 2 /[HPF] None Seen [facility] Work Phone: Urine specific gravity measu rementon 09-06-2021 Specific gravity (U) [Rel density] 1.010 [facility] Work Phone: Urobilinogen Auto test strip Ql (U)on 09-06-2021 Urobilinogen Ql (U) Normal mg/dl Normal [facility] Work Phone: Vital Signs Date Time Vital Sign Value Performing Clinician Faci lity 09-20-2023 11:00-0400 Body temperature 98.1 [degF] Dr. Steff Tobias Work Phone: [facility] 09-20-2023 11:00-0400 Diastolic blood pressure 71 mm[Hg] Dr. Steff oTbias Work Phone: [facility] 09-20-2023 11:00-0400 Heart rate 105 /min Dr. Steff Tboias Work Phone: [facility] 09-20-2023 11:00-0400 Respiratory rate 16 /min Dr. Steff Tobias Work Phone: [facility] 09-20-2023 11:00-0400 SaO2% (BldA) [Mass fraction] 98 % Dr. Steff Tobias Work Phone: 1(936)783-491028 [place] [address] 09-20-2023 11:00-0400 Systolic blood pressure 153 mm[Hg] Dr. Steff Tobias Work Phone: 0(069)343-928228 [place] [address] 09-18-2023 15:59-0400 Body height 167.[address] Steff Tobias Work Phone: 0(251)443-448428 [place] [address] 09-18-2023 15:59-0400 Body mass index (BMI) [Ratio] 33.5 kg/m2 Dr. Steff Tobias Work Phone: 8(277)899-252128 [place] [address] 09-18-2023 15:59-0400 Body weight 94.[address] Steff Tobias Work Phone: 5(661)849-949022 [place] [address] 09-18-2023 15:32-0400 Inhaled oxygen flow rate 5 L/min Dr. Steff Tobias Work Phone: 8(773)098-772922 [place] [address] 06-01-2023 12:55-0500 Body height 170.[address] Steff Tobias Work Phone: 8(429)650-699622 [place] [address] 06-01-2023 12:55-0500 Body mass index (BMI) [Ratio] 33.5 kg/m2 Dr. Steff Tobias Work Phone: 2(978)977-327128 [place] [address] 06-01-2023 12:55-0500 Body weight 97.[address] Steff Tobias Work Phone: 3(572)206-276728 [place] [address] 02-01-2023 09:20-0400 Body height 170.[address] Steff Tobias Work Phone: 4(926)216-926528 [place] [address] 02-01-2023 09:20-0400 Diastolic blood pressure 84 mm[Hg] Dr. Steff Tobias Work Phone: 1(124)049-294328 [place] [address] 02-01-2023 09:20-0400 Systolic blood pressure 146 mm[Hg] Dr. Steff Tobias Work Phone: 4(856)219-064628 [place] [address] 02-01-2023 08:55-0400 Body mass index (BMI) [Ratio] 32.1 kg/m2 Dr. Steff Tobias Work Phone: [facility] 02-01-2023 08:55-0400 Body weight 92.[address] Steff Tobias Work Phone: [facility] 12-01-2022 09:24-0400 Body height 170.[address] Steff Tobias Work Phone: 3(315)713-354228 [place] [address] 12-01-2022 09:17-0400 Body mass index (BMI) [Ratio] 32.3 kg/m2 Dr. Steff Tobias Work Phone: 2(921)570-353628 [place] [address] 12-01-2022 09:17-0400 Body weight 93.[address] Steff Tobias Work Phone: 4(811)528-061028 [place] [address] 12-01-2022 09:17-0400 Diastolic blood pressure 80 mm[Hg] Dr. Steff Tobias Work Phone: 4(959)270-506528 [place] [address] 12-01-2022 09:17-0400 Systolic blood pressure 162 mm[Hg] Dr. Steff Tobias Work Phone: 4(666)071-646828 [place] [address] 11-20-2022 10:16-0400 Diastolic blood pressure 83 mm[Hg] Dr. Steff Tobias Work Phone: 2(254)084-396128 [place] [address] 11-20-2022 10:16-0400 Systolic blood pressure 154 mm[Hg] Dr. Steff Tobias Work Phone: 6(616)073-653928 [place] [address] 11-20-2022 10:02-0400 Body mass index (BMI) [Ratio] 31.8 kg/m2 Dr. Steff Tobias Work Phone: [facility] 11-20-2022 10:02-0400 Body weight 92.[address] Steff Tobias Work Phone: [facility] Encounters Encounter Date Encounter Type Care Provider Facility Start: 12-05-2024 ambulatory [facility] Facility:[facility] [place] Start: 11-14-2024 Non-patient / Non-visit Dr. Margarito lala MD -[facility] Start: 11-14-2024 End: 11-14-[address] Steff Tobias MD Work Phone: [facility] Work Phone: Start: 11-14-2024 End: 11-14-[address] Steff Tobias MD -Cardiovascular Services Work Phone: Start: 11-14-2024 End: 11-14-2024 ambulatory [facility] Facility:[facility] Start: 11-11-2024 End: 11-11-[address] Steff Tobias MD Work Phone: [facility] Work Phone: Start: 11-11-2024 End: 11-11-[address] Steff Tobias MD -[facility] Start: 11-11-2024 End: 11-11-2024 [facility] Start: 10-16-2024 ambulatory Margarito Aleman [facility] [place] Start: 10-16-2024 Non-patient / Non-visit Dr. Margarito lala MD -[facility] Start: 10-16-2024 End: 10-16-[address] Steff Tobias MD -Cardiovascular Services Work Phone: Start: 10-16-2024 End: 10-16-2024 ambulatory [facility] Facility:[facility] Start: 09-12-2024 End: 09-12-[address] Walter Chang MD -[facility] Work Phone: Start: 09-12-2024 End: 09-12-2024 ambulatory Walter Chang Facility:[facility] Start: 09-04-2024 End: 09-04-[address] Steff Tobias MD Work Phone: [facility] Work Phone: Start: 09-04-2024 End: 09-04-[address] Steff Tobias MD -Laboratory Work Phone: Start: 09-03-2024 Non-patient / Non-visit Dr. Margarito lala MD -[facility] Start: 09-03-2024 End: 09-04-[address] Steff Tobias MD Work Phone: [facility] Work Phone: Start: 09-03-2024 End: 09-03-[address] Steff Tobias MD -Cardiovascular Services Work Phone: Start: 09-02-2024 End: 09-03-[address] Steff Tobias MD Work Phone: [facility] Work Phone: Start: 09-02-2024 End: 09-02-[address] Steff Tobias MD -Laboratory, Phy Office 3rd Flr Start: 09-02-2024 End: 09-02-2024 ambulatory [facility] Facility:[facility] Start: 06-04-2024 End: 06-04-[address] Steff Tobias MD -Laboratory, Phy Office 3rd Flr Start: 06-04-2024 End: 06-04-2024 ambulatory [facility] Facility:[facility] Start: 03-17-2024 End: 03-17-2024 ambulatory [facility] Facility:[facility] Start: 12-19-2023 End: 12-19-2023 ambulatory [facility] Start: 10-21-2023 End: 10-21-2023 Emergency department patient visit [facility] Start: 09-20-2023 Non-patient / Non-visit Dr. John Tobias Work Phone: [facility] Start: 09-19-2023 Non-patient / Non-visit Dr. John Tobias Work Phone: [facility] Start: 09-18-2023 Non-patient / Non-visit Dr. John Tobias Work Phone: [facility] Start: 09-18-2023 Non-patient / Non-visit Dr. John Tobias Work Phone: [facility] Work Phone: Start: 09-18-[address] Steff matamoros Work Phone: [facility]-ED Referred Work Phone: Start: 09-18-2023 Non-patient / Non-visit Dr. John Tobias Work Phone: [facility] Start: 09-18-2023 End: 09-20-2023 Evaluation and management of inpatient Dr. Steff Tobias Work Phone: [facility]-Medical Surgical 3 Work Phone: Start: 08-01-2023 End: 08-01-[address] Steff Tobias Work Phone: [facility] Work Phone: Start: 07-31-2023 End: 07-31-[address] Steff Tobias Work Phone: [facility]-Outpatient Bone Densitometry Work Phone: Start: 07-31-2023 End: 07-31-2023 Non-patient / Non-visit Dr. Steff Tobias Work Phone: [facility] Work Phone: Start: 07-16-2023 End: 07-16-[address] Steff Tobias Work Phone: [facility] Work Phone: Start: 07-16-2023 End: 07-16-[address] Steff Tobias Work Phone: [facility]-Pulmonary Services/Neurology Work Phone: Start: 06-28-2023 End: 06-28-[address] Steff Tobias Work Phone: [facility] Work Phone: Start: 06-23-2023 End: 06-23-[address] Steff Tobias Work Phone: [facility] Work Phone: Start: 06-23-2023 End: 06-23-[address] Steff Tobias Work Phone: [facility]-Cat Scan, [facility] Work Phone: Start: 06-01-2023 End: 06-01-[address] Steff Tobias Work Phone: [facility] Work Phone: Start: 05-30-2023 End: 05-30-[address] Steff Tobias Work Phone: [facility] Work Phone: Start: 05-30-2023 End: 05-30-[address] [facility] Start: 02-27-2023 End: 02-27-[address] [facility] Work [facility]: Start: 02-23-2023 End: 02-23-[address] Steff Tobias Work Phone: [facility] Work Phone: Start: 02-23-2023 End: 02-23-[address] [facility] Start: 02-01-2023 End: 02-01-[address] Steff Tobias Work Phone: [facility] Start: 12-23-2022 End: 12-23-[address] Steff Tobias Work Phone: [facility] Work Phone: Start: 12-23-2022 End: 12-23-[address] Steff Tobias Work Phone: [facility]-MRI - [facility] Start: 12-20-2022 End: 12-20-[address] Steff Tobias Work Phone: [facility] Work Phone: Start: 12-20-2022 End: 12-20-[address] Steff Tobias Work Phone: [facility]-Radiology, [facility] Start: 12-01-2022 End: 12-01-[address] Steff Tobias Work Phone: [facility] Start: 11-20-2022 End: 11-20-[address] Steff Tobias Work Phone: [facility] Start: 11-15-2022 End: 11-15-[address] Steff Tobias Work Phone: [facility]-Laboratory, Phy Office 3rd Flr Start: 05-24-2022 End: 05-24-2022 ambulatory [facility] Work Phone: Start: 05-24-2022 End: 05-24-2022 Patient encounter procedure [facility]-Laboratory, Phy Office 3rd Flr Start: 11-21-2021 End: 11-21-2021 Patient encounter procedure [facility]-Laboratory, Phy Office 3rd Flr Start: 09-13-2021 End: 09-13-2021 Patient encounter procedure [facility]-Laboratory, Phy Office 3rd Flr Start: 09-06-2021 End: 09-06-2021 Patient encounter procedure [facility]-Laboratory,Futu re Start: 08-10-2021 End: 08-10-2021 Patient encounter procedure [facility]-Ultrasound, [facility] Procedures Date Procedure Procedure Detail Performing Clinician Start: 11-11-2024 Positron emission to mography with computed tomography Dr. Steff Tobias MD Work Phone: Start: 10-16-[address] John Tobias MD Work Phone: Start: 10-16-2024 CT angiography of ch est with contrast Dr. Steff Tobias MD Work Phone: Start: 09-12-2024 X-ray of lumbar spin e, two or three views Dr. Steff Tobias MD Work Phone: Start: 09-03-2024 CT angiography of ch est with contrast Dr. Steff Tobias MD Work Phone: Start: 09-02-2024 D-dimer assay, quantitative Dr. Steff Tobias MD Work Phone: Comment on above: D-Dimer ELEVATED (>0 .49): Additional studies and clinicalassessments are indicated to conclude diagnosis of:Deep Vein Thrombosis (DVT) or Pulmonary Embolism (PE) Start: 09-19-2023 X-ray of lumbar spin e, two or three views Dr. Steff Tobias Work Phone: Start: 09-18-2023 Fluoroscopic guidance D allyson Tobias Work Phone: Start: 09-18-2023 X-ray of lumbar spin e, two or three views Dr. Steff Tobias Work Phone: Start: 09-18-2023 360 Lumbar Fusion (N ot Applicable) Dr. Steff Tobias Work Phone: Start: 08-14-2023 Nasal Screen MRSA/MSSA Dr. Steff Tobias Work Phone: Start: 07-31-2023 Dual energy X-ray absorptiometry Dr. Steff Tobias Work Phone: Start: 07-16-2023 SARS-CoV-2, Influenz a & RSV (PCR) Dr. Steff Tobias Work Phone: Start: 06-23-2023 CT of lumbar spine Dr. Steff Tobias Work Phone: Start: 06-01-2023 X-ray of lumbosacral spine Dr. Steff Tobias Work Phone: Start: 02-27-[address] Steff lieberman Work Phone: Start: 12-23-2022 MRI of lumbar spine Dr. Steff Tobias Work Phone: Start: 12-20-2022 X-ray of lumbar spin e, two or three views Dr. Steff Tobias Work Phone: Start: 08-10-2021 US urinary tract Plan of Treatment Date Care Activity Detail Author Start: 09-20-2023 Patient discharge [facility] Start: 09-18-2023 Care regimes management [facility] Start: 09-18-2023 Notification of physician [facility] Start: 09-18-2023 [facility] Start: 09-18-2023 Following clinical p athway protocol [facility] Start: 09-18-2023 Application of ice c ollar, cap or bag [facility] Start: 09-18-2023 Application of inter mittent pneumatic compression device [facility] Start: 09-18-2023 Catheterization of vein [facility] Start: 09-18-2023 Following clinical p athway protocol [facility] Start: 09-18-2023 Incentive spirometry [facility] Start: 09-18-2023 Measuring intake and output [facility] Start: 09-18-2023 Neurovascular assessment [facility] Start: 09-18-2023 Patient education [facility] Start: 09-18-2023 Procedure discontinued [facility] Start: 09-18-2023 Provision of activit y privileges [facility] Start: 09-18-2023 Taking patient vital signs [facility] Start: 09-18-2023 [facility] Start: 09-18-2023 Admission procedure [facility] Start: 09-18-2023 Consultation [facility] Start: 09-18-2023 Referral to service [facility] Start: 02-27-2023 [facility] Start: 02-27-2023 Urine culture Urine Culture [facility] Start: 11-20-2022 Patient referral [facility] Work Phone: CT Lumbar spine [facility] DXA Bone [Mass/Area] Bone density [facility] Patient Education Lumbar Fusion [facility] Work Phone: Patient referral [facility] Work Phone: [facility] Payers Date Payer Category Payer Self-pay [id number] 2011 Private Health Insurance [id number] 2011 Medicare [id number] 1945 Unknown [id number] 2.16.8 [id number] Unknown [id number] 2.16.8 [id number] Unknown [id number] 2.16.8 [id number] Unknown [id number] 2.16.8 [id number] Unknown [id number] 2.16.8 [id number] Unknown [id number] 2.16.8 [id number] Unknown [id number] 2.16.8 [id number] Unknown [id number] 2.16.8 [id number] Unknown [id number] 2.16.8 [id number] Unknown [id number] 2.16.8 [id number] Unknown [id number] 2.16.8 [id number] Unknown [id number] 2.16.8 [id number] Unknown [id number] 2.16.8 [id number] Unknown [id number] 2.16.8 [id number] Unknown [id number] 2.16.8 [id number] Unknown [id number] 2.16.8 [id number] Unknown [id number] 2.16.8 [id number] Social History Date Type Detail Facility Start: 03-30-2020 End: 09-04-2023 Tobacco smoking status UTIS Unknown if ever smoked [facility] Start: 1945 Sex Assigned At Female [facility] Start: 10-09-2023 Tobacco smoking status NHIS Ex-smoker (finding) [facility] Start: 09-12-2024 End: 09-16-2024 Sex Female (finding) [facility] NEGATED: Highlighted row [facility] Medical Equipment Procedure Code Equipment Code Equipment Origin al Text Equipment Identifier Dates BONE,30CC CRUSH CANC FDA Star t: 09-18-2023 Bone-screw inter nal spinal fixation system, non-sterile ()[id number] FDA Start: 09-18-2023 Bone-screw inter nal spinal fixation system, non-sterile ()[id number] FDA Start: 09-18-2023 Bone-screw inter nal spinal fixation system, non-sterile ()[id number] FDA Start: 09-18-2023 Polymeric spinal interbody fusion cage ()[id number] FDA Start: 09-18-2023 Bone-screw inter nal spinal fixation system, non-sterile ()[id number] FDA Start: 09-18-2023 HIGH VISCOSITY SPINAL CEMENT FDA Start: 09-18-2023 Bone-screw inter nal spinal fixation system, non-sterile ()[id number] FDA Start: 09-18-2023 SEALANT,FLOSEAL HEMOSTATIC 5ML FDA Start: 09-18-2023 Spinal fusion gr aft kit ()[id number] FDA Start: 09-18-2023 Bone-screw inter nal spinal fixation system, non-sterile ()[id number] FDA Start: 09-18-2023 BONE,30CC CRUSH CANC FDA Star t: 09-18-2023 HIGH VISCOSITY SPINAL CEMENT FDA Start: 09-18-2023 SEALANT,FLOSEAL HEMOSTATIC 5ML FDA Start: 09-18-2023 BONE,30CC CRUSH CANC FDA Star t: 09-18-2023 HIGH VISCOSITY SPINAL CEMENT FDA Start: 09-18-2023 SEALANT,FLOSEAL HEMOSTATIC 5ML FDA Start: 09-18-2023 BONE,30CC CRUSH CANC FDA Star t: 09-18-2023 HIGH VISCOSITY SPINAL CEMENT FDA Start: 09-18-2023 SEALANT,FLOSEAL HEMOSTATIC 5ML FDA Start: 09-18-2023 BONE,30CC CRUSH CANC FDA Star t: 09-18-2023 HIGH VISCOSITY SPINAL CEMENT FDA Start: 09-18-2023 SEALANT,FLOSEAL HEMOSTATIC 5ML FDA Start: 09-18-2023 BONE,30CC CRUSH CANC FDA Star t: 09-18-2023 HIGH VISCOSITY SPINAL CEMENT FDA Start: 09-18-2023 SEALANT,FLOSEAL HEMOSTATIC 5ML FDA Start: 09-18-2023 Goals Date Patient Goal Desired Activity /State Functional Status Date Assessment Result Facility 09-20-2023 Functional status Bathroom [employer] [facility] Work Phone: Mental Status Date Assessment Result Facility 09-20-2023 Cognitive function Voice/Name [facility] Work Phone: Clinical Notes 08-25-2020 to 09-12-2024 Note Date & Type Note Facility 09-12-2024 Evaluation note Diagnosis Onset Date Resolution Status post lumbar spinal fusion acute September 12, 2024 11:23am [facility] Work Phone: 1(123) 906-346603-05-2025 Radiology Diagnostic study note [facility] Imaging Services [address] [address] CTA Chest W/WO Contrast MR#: [id number] Acct: [id number] Name: DEANN DEGROOT Rep #: [id number] : 1945 F 79 From: Fausto Barth MD PCP: Dr. Steff Tobias MD Status: FELIX BENITES Study:CTA Chest W/WO Contrast Date of Exam: 09/03/24 Exam# [id number] Ordering Dr: Steff Tobias MD PROCEDURE: CTA CHEST W/WO CONTRAST REASON FOR EXAM: Bilateral lower extremity swelling worse on the left side. Shortness of breath. TECHNIQUE: CTA imaging of the chest with intravenous contrast. 3D reconstructions. CONTRAST: 100 mL of Isovue 300. COMPARISON: None. FINDINGS: Hardware: None. There is a 4.6 cm x 4.9 cm x 4.7 cm cyst in the upper midportion of the spleen. There is also evidence of a 1.6 cm hypodensity in the inferior aspect of the spleen this may represent a complex cyst Lymph nodes: No mediastinal hilar or axillary lymphadenopathy. Heart: Normal heart size. No pericardial effusion. RV/LV Diameter Ratio: N/A Thoracic Aorta: No thoracic aortic aneurysm or dissection. Mild atheroscleroticplaque formation. Pulmonary Vessels: Tiny nonocclusive filling defects are seen in the distal portion of the right pulmonary artery and right inter lobar artery extending to the right lower pulmonary arterial branches. Tiny filling defect is also seen at the origin of the right upper lobe pulmonary artery. Most Proximal Level of Embolus (if embolus present): N/A Lungs and Airways: Mild emphysematous changes are present. Mild increased markings in the lingular segment of the left upper lobe suggestive of scarring. Pleura: No pleural effusion. No pneumothorax. Upper Abdomen: Is a 4.6 cm x 4.9 cm x 4.7 cm cyst in the upper midportion of thespleen. There is also evidence of a 1.6 cm hypodensity in the inferior aspect of the spleen this may represent a complex cyst. Bones: Degenerative changes of the thoracic spine. CT/CTA Chest W/WO Contrast IMPRESSION: Nonocclusive filling defects are seen in the distal portion of the right pulmonary artery and rightinterlobar artery extending into branches of the right lower lobe pulmonary artery. Tiny filling defects also seen at the origin of the right upper lobe pulmonary artery. One or more dose reduction techniques were used (e.g., Automated exposure control, adjustment of the mA and/or kV according to patient size, use of iterative reconstruction technique). Reading Location: [id number] CC: Dr. Steff Tobias MD ~ [employer]: Signed [facility]03-21-2024 Progress note Author Walter Chang [facility] September 20, 2023 9:11am Note Date/Time September 20, 2023 9:1 1am [facility] Medical Records Department [address] [place] [address] Progress Note - Orthopedic 09/20/23908 MR#: [id number] Acct: [id number] Name: DEANN DEGROOT Rep #:[id number] : 1945 78 From: Walter Chang MD PCP: Dr. Steff Tobias MD Status:ADM I N Location: [facility] DG353-3 Subjective Subjective Postop day 2 status post L3-5 fusion. Passing gas and tolerating solid foods. Pain well-controlled. Objective Data Objective Data Vital Signs: Vital Signs Temp Pulse Resp BP Pulse Ox O2 Del Method O2 Flow Rate 98.3 F 97 18 171/71 H 98 Room Air 5 09/20/23 08:40 09/20/23 08:40 09/20/23 08:40 09/20/23 08:40 09/20/23 08:40 09/20/23 08:51 09/18/23 15:32 Oxygen Flow Rate (L/min) 5 Oxygen Delivery Method Room Air Weight: 208 lb 1.862 oz Body Mass Index (BMI) 33.5 Intake & Output: Intake and Output for Last 24 Hours 09/18/23 09/19/23 09/20/23 23:59 23:59 23:59 Intake Total 2204 / 2404 3450.00 / 3450.00 Output Total 550 / 550 Balance 1654 / 1854 3450.00 / 3450.00 Lab / Micro Data 09/19/23 07:19 09/19/23 07:19 Labs: Laboratory Results - last 24 hr 09/18/23 13:38: Hep B Core Total Ab Negative 09/19/23 12:54: POC Glucose 273 H 09/19/23 17:18: POC Glucose 177 H 09/19/23 21:24: POC Glucose 193 H 09/20/23 06:30: POC Glucose 179 H Micro: Microbiology 08/14/23 10:32 Swab (Method) Nasal Screen MRSA/MSSA - Final Radiography Diagnostic Testing: Radiology Impression Lumbar Spine X-Ray 09/19/23 08:15 IMPRESSION: Status post fusion at the L3-L4 and L4-L5 levels. Levoscoliosis. Electronically Signed: Akira Barth MD at 9:09 EDT , Physical Exam Narrative Dressings?CDI. Neurologic evaluation of lower extremity shows 5 x 5 power normal shows normal sensations in all dermatomes. Assessment & Plan Assessment/Plan (1) Status post lumbar spinal fusion: PLAN: Plan Postop day 2 status post L3-5 fusion. Did well with PT yesterday. Continue PT OT mobilization. Tolerating solid diet. Okay to discharge home and follow-up in 2 weeks. Patient was in agreement. 09/20/23 0911 <Electronically signed by Walter Chang MD> Cosigner Signature (if applicable): CC: ~ Signed [facility] Work Phone: 1(117) 653-926103-20-2024 Progress note Author [facility] September 19, 2023 11:47am Note Date/Time September 19, 2023 11: 47am [facility] Medical Records Department [address] [place] [id number] Progress Note - Orthopedic 09/19/23 1144 MR#: [id number] Acct: [id number] Name: DEANN DEGROOT Rep #:[id number] : 1945 78 From: Walter Chang MD PCP: Dr. Steff Tobias MD Status:ADM I N Location: [place] [address]-1 Subjective Subjective Postop day 1 status post L3-5 fusion. Doing well. Was able to work with PT and also did stairs. Had some nausea yesterday but none today. No flatus yet. Tolerating clear liquids. Objective Data Objective Data Vital Signs: Vital Signs Temp Pulse Resp BP Pulse Ox O2 Del Method O2 Flow Rate 97.8 F 85 15 154/66 H 96 Room Air 5 09/19/23 06:34 09/19/23 06:34 09/19/23 06:34 09/19/23 06:34 09/19/23 06:34 09/19/23 06:34 09/18/23 15:32 Oxygen Flow Rate (L/min) 5 Oxygen Delivery Method Room Air Weight: 208 lb 1.862 oz Body Mass Index (BMI) 33.5 Intake & Output: Intake and Output for Last 24 Hours 09/17/23 09/18/23 09/19/23 23:59 23:59 23:59 Intake Total 2204 / 2404 3450.00 / 3450.00 Output Total 550 / 550 Balance 1654 / 1854 3450.00 / 3450.00 Lab / Micro Data 09/19/23 07:19 09/19/23 07:19 Labs: Laboratory Results - last 24 hr 09/18/23 13:38: Hep Bs Antigen Non-Reactive, Hep Bs Antibody Reactive, HepatitisC Antibody Non-Reactive, HIV 1&2 Antibody Non-Reactive 09/18/23 14:23: POC Glucose 281 H 09/18/23 17:21: POC Glucose 317 H 09/18/23 21:52: POC Glucose 226 H 09/19/23 06:47: POC Glucose 168 H 09/19/23 07:19: WBC 10.5, RBC 3.62 L, Hgb 10.5 L, Hct 32.1 L, MCV 88.7, MCH 29.0, MCHC 32.7, RDW Std Deviation 48.8 H, RDW Coeff of Eddie 15.1 H, Plt Count 205, MPV 9.3, Sodium 136, Potassium 4.0, Chloride 107, Carbon Dioxide 21.0, Anion Gap 8, BUN 26 H, Creatinine 1.07 H, Estim Creat Clear Calc 50.98, Est GFR (MDRD) Af Amer 64, Est GFR (MDRD) Non-Af 53 L, BUN/Creatinine Ratio 24.3 H, Glucose 178 H, Calcium 8.5 Micro: Microbiology 08/14/23 10:32 Swab (Method) Nasal Screen MRSA/MSSA - Final Radiography Diagnostic Testing: Radiology Impression Lumbar Spine X-Ray 09/18/23 07:56 IMPRESSION: Intraoperative fluoroscopic imaging provided for anterior and posterior fusion at the L3-L4 and L4-L5 levels. Electronically Signed: Akira Barth MD at 19:11 EDT , Lumbar Spine X-Ray 09/19/23 08:15 IMPRESSION: Status post fusion at the L3-L4 and L4-L5 levels. Levoscoliosis. Electronically Signed: Akira Barth MD at 9:09 EDT , Physical Exam Narrative Dressings?CDI. Neurologic examination of lower extremity shows 5 x 5 power normal shows normal sensations in all dermatomes. Assessment & Plan Assessment/Plan (1) Status post lumbar spinal fusion: PLAN: Plan Did well with PT today. X-rays reviewed. Will continue clear liquids until she passes flatus. Otherwise she is ready fordischarge home. If no flatus until morning, will start suppository and enema. If patient passes flatus today and tolerates solid meal, okay for discharge home, otherwise we will keep her additional night. 09/19/23 1147 <Electronically signed by Walter Chang MD> Cosigner Signature (if applicable): CC: ~ Signed [facility] Work Phone: 1(936) 901-619503-19-2024 Consult note Author Lenin Greer [facility] September 18, 2023 8:29pm Note Date/Time September 18, 2023 4:0 8pm [facility] Medical Records Department [address] [place] [address] Consultation - Hospitalist 09/18/23 1608 MR#: [id number] Acct: [id number] Name: DEANN DEGROOT Rep #:[id number] : 1945 78 From: Lenin escalante DO PCP: Dr. Steff Tobias MD Status:ADM I N [facility] Assessment & Plan Assessment/Plan (1) Lumbar scoliosis: QUALIFIERS: Scoliosis type: other secondary scoliosis Qualified Code(s): M41.56 - Other secondary scoliosis, lumbar region (2) Diabetes mellitus, type 2: (3) Hypertension: PLAN: Plan Patient is a 78-year-old female who presented to [facility] on 09/18/2023 for planned lumbar fusion procedure. Medicine consulted postoperatively for medical management. 1. Lumbar stenosis and disc disease s/p L3-5 posterior lumbar fusion ? Orthopedics primary. Tolerated procedure well, no immediate perioperative complications. Further management per orthopedics. Follow-up a.m. CBC and BMP. 2. Type 2 diabetes mellitus with hyperglycemia ? Home regimen of metformin 1000 mg twice daily, Actos 30 mg daily. Last A1c 7.2% on 09/10/2023. Blood glucose 146 on morning of procedure, elevated to 317 postoperatively likely due to acute stress of the procedure. Okay for sliding-scale insulin with meals with high?medium dosing for now, adjust as needed. 3. Hypertension ? Will hold home valsartan 320 mg daily tomorrow to ensure good kidney function on a.m. BMP and adequate blood pressures. Restart as able. Chronic medical conditions: ? Obesity: BMI 33. Complicates hospital course, care, recovery and prognosis. ? Hyperlipidemia: Continue home statin. ? GERD: Continue home PPI. ? Menopausal symptoms: Continue home medications. DVT prophylaxis: Per orthopedic recommendations Total clinical time spent by myself addressing the patient's medical issues, reviewing all the data, and collaborating with patient's care team: 35 minutes. HPI Consult Data Date of Consult: 09/18/23 HPI Narrative Reason for Consultation: Postoperative medical management HPI Narrative: DEANN DEGROOT, is a 78 F who presented to [facility] on 09/18/2023 for planned lumbar fusion procedure. Patient had L3-L5 posterior lumbar fusion done with Dr. Chang today. Medicine was consulted for postoperative medical management. I saw the patient at the bedside this eveningabout 1 to 2 hours after she arrived back to the floor from PACU. She was sitting up comfortably in bed and talking to a family member on the phone when Iarrived to the room. She reported feeling more tired than normal and had just woken up from a nap recently, but otherwise she was feeling fairly well. She denies any significant low back pain. She had eaten some Jell-O and had mild nausea but stated this was tolerable. She denied any chest pain, shortness of breath, abdominal pain or discomfort. No other acute concerns at this time. [facility] Medical History (Updated 09/18/23 @ 20:[address] Lenin Greer, DO) Back pain Diabetes Dietary restriction Former smoker Gastric reflux High cholesterol History of edema History of steroid therapy Hypertension Post-menopausal Restless legs Shortness of breath on exertion Type 2 diabetes mellitus without complications Home Medications pantoprazole 40 mg tablet,delayed release 40 mg PO DAILY GERD 05/06/14 [History Last Taken 09/18/23] simvastatin 80 mg tablet 80 mg PO QHS CHOLESTEROL 05/06/14 [History Last Taken 09/17/23] estradiol 1 mg tablet 1 mg PO DAILY HORMONE 06/01/23 [History Last Taken 09/17/23] metformin 500 mg tablet 1,000 mg PO BID DIABETES 06/01/23 [History Last Taken 09/17/23] valsartan 320 mg tablet 320 mg PO DAILY BP 06/01/23 [History Last Taken 09/18/23] medroxyprogesterone 5 mg tablet 5 mg PO DAILY HOT FLASHES 07/19/23 [History Last Taken 09/17/23] pioglitazone 30 mg tablet (Actos) 30 mg PO DAILY DIABETES 09/04/23 [History Last Taken 09/17/23] Allergy/AdvReac Type Severity Reaction Status Date / Time amoxicillin trihydrate Allergy Rash Verified 09/18/23 06:14 [From Augmentin] potassium clavulanate Allergy Rash Verified 09/18/23 06:14 [From Augmentin] Surgical History (Updated 07/19/23 @ 11:25 by Ruby Feliciano) H/O abdominoplasty History of hysteroscopy History of vein stripping Hx of blepharoplasty Hx of breast biopsy Hx of colonoscopy Hx of foot surgery Hx of left cataract extraction Hx of right cataract extraction Social History Smoking Status: Former smoker ROS Constitutional Constitutional: Reports fatigue; Denies chills, fever(s) or weakness Eyes Eyes: Denies change in vision Cardiovascular Cardiovascular: Denies chest pain Respiratory/Chest Respiratory/Chest: Denies shortness of breath at rest Gastrointestinal Gastrointestinal: Reports nausea; Denies abdominal pain, constipation, diarrhea or vomiting Musculoskeletal Musculoskeletal: Denies arthralgias or back pain Neurologic Neurologic: Denies focal weakness, headache(s), numbness or paresthesias Physical Exam Const alert, oriented x3 and no apparent distress Constitutional Narrative: Pleasant elderly female, obese, mildly fatigued appearing but otherwise sitting up comfortably in bed, conversing normally, in no acute distress. General Appearance: cooperative and comfortable HEENT normocephalic, head/scalp atraumatic, hearing grossly normal bilaterally, nasal mucous membranes and turbinates normal and moist oral mucous membranes Eyes PERRL, EOMs intact bilaterally and conjunctivae normal Neck full ROM Chest inspection of chest normal Resp normal respiratory effort, normal air movement, no use of accessory muscles and clear to auscultation bilaterally Cardio regular rate, regular rhythm, no murmurs and peripheral pulses 2+ throughout GI normal to inspection, nondistended, normoactive bowel sounds, soft to palpation,non-tender and non-distended Back/Spine Back/Spine Narrative: No gross abnormalities on visual exam. Did not attempt any movement of the patient. Extremity normal to inspection, full ROM and no pedal edema Skin no rashes or lesions noted Neuro no focal motor deficits and no sensory deficits noted Speech: speech normal Psych mental status grossly normal Lab / Micro Data 09/18/23 06:50 08/14/23 10:32 Labs: Laboratory Results - last 24 hr 09/18/23 06:19: POC Glucose 146 H 09/18/23 06:50: Plt Count 218 09/18/23 13:38: Hep Bs Antigen Non-Reactive, Hep Bs Antibody Reactive, HepatitisC Antibody Non-Reactive, HIV 1&2 Antibody Non-Reactive 09/18/23 14:23: POC Glucose 281 H Charges/Coding Visit Charges Inpatient E&M: 32926 Subs Hosp L2 09/18/232028 <Electronically signed by Lenin Greer DO> Cosigner Signature (if applicable): CC: Dr. Lenin Greer DO; Dr. Walter Chang MD; Dr. Margarito Figueroa MD; Dr. Steff Tobias MD~ Signed [facility] Work Phone: 1(132) 210-658803-19-2024 Procedure [facility] 09-18-2023 Procedure [facility]03-19-2024 Procedure note [facility]03-19-2024 History and physical note Author Walter Chang [facility] September 18, 2023 7:27am Note Date/Time September 18, 2023 7:2 7am [facility] Medical Records Department [address] [place] [address] History & Physical Exam 09/18/23 0727 MR#: [id number] Acct: [id number] Name: DEANN DEGROOT Rep #:[id number] : 1945 78 From: Walter Chang MD PCP: Dr. Steff Tobias MD Status:ADM I N Location: [facility] A-1 History and Physical Date of Admission: 09/18/23 MR#: [id number] Acct: [id number] Name: DEANN DEGROOT Rep #: [id number] : 1945 Provider: Dr. Walter Chang MD Age/Sex: 78/F [facility] Status: Signed Intake Vital Signs 06/01/2312:55 07/31/2412:49 Height 5 ft 7 in 5 ft 7 in Intake Visit Reasons: lumbar spine Chief Complaint: lumbar spine CT follow up Allergies amoxicillin trihydrate [From Augmentin] Allergy (Verified 07/19/23 11:08) Rashpotassium clavulanate [From Augmentin] Allergy (Verified 07/19/23 11:08) Rash PFSH Medical History (Updated 07/19/23 @ 11:25 by Ruby Feliciano) Back pain Diabetes Dietary restriction Former smoker Gastric reflux High cholesterol History of edema History of steroid therapy Hypertension Post-menopausal Restless legs Shortness of breath on exertion Type 2 diabetes mellitus without complications Surgical History (Updated 07/19/23 @ 11:25 by Ruby Feliciano) H/O abdominoplasty History of hysteroscopy History of vein stripping Hx of blepharoplasty Hx of breast biopsy Hx of colonoscopy Hx of foot surgery Hx of left cataract extraction Hx of right cataract extraction Social History Smoking Status: Former smoker HPI lumbar spine Details: This documentation accurately reflects the service provided and the decisions made by me, Dr. Walter Chang MD 08/01/23 1539. Part of today?s visit was documented by Sandrine HOBBS, acting as scribe. DEANN DEGROOT is a 78 year old F here today for pre-op lumbar spine. She is alsohere to review her dexa scan. Deann continues to have lower back lower extremity claudication radicular symptoms. She recently had a DEXA scan. She just recovered from a COVID infection a few weeks ago. Following this her previous history. 06/28/23: DEANN DEGROOT is a 78 year old F here today for follow up from CT scan. She reports constant lumbar spine pain that radaites down into her thighs bilaterally. She would like to discuss results and next steps. Deann continues to have difficulty with back pain, pain with sitting long peers of time. She also describes left lower extremity radicular pain along thelateral thigh and lateral leg causing numbness and difficulty walking distances. She also has bilateral anterior thigh tightness and lower back pain after sitting for a long period of time. She has had 2 epidural injections without persistent relief. She has tried physical therapy in the past. She is hoping to consider surgery now. She was previously on vitamin D supplementation but has stopped taking those recently. She was previously seen by me a few weeks ago and was advised to obtain CT scan for surgical planning. She is here to review the images. 06/01: Deann has had longstanding low back pain which is significantly worsenedover the last 5 to 6 months with severe radiation of pain going down bilateral buttocks into the posterior thigh region worse on the right side. She also has significant pain in the lateral thigh and anterior thigh region on the right side. She has tried multiple epidural injections without significant relief. She has also tried chiropractor and massage treatment without much relief. She is able to walk about 1 block distance after which she has to find a place to sit down. 20 years ago she had an accident for which she was put in a brace which was likely course at and was placed for 3 months. This was probably related to treatment of the fracture although she is not certain. Her both kidsas well as have scoliosis. Both her kids have been operated on for scoliosis. She does not see if she had a diagnosis of scoliosis from childhood. Ortho Exam General General: Yes no acute distress Neurologic: Yes alert and Yes oriented x3 Spine SPINE TESTING CERVICAL THORACIC LUMBAR Musculoskeletal Strength 0=absent - 5=normal Details: Examination of the back shows midline and paraspinal cervical tenderness in lower to mid lumbar spine. Neurologic evaluation of lower extremity shows 5 outof 5 power in all muscles normal sensations in all dermatomes. Pain is worse with bending backwards then forwards. Coding Level of Care Code Off vis,est,level 3 Diagnoses Osteopenia, unspecified location M85.80 Osteopenia location: unspecified Other secondary scoliosis, lumbar region M41.56 Scoliosis type: other secondary scoliosis Spondylolisthesis, lumbar region M43.16 Time Spent (min) 35 Assessment and Plan Assessment and Plan (1) Osteopenia: Status: Acute Qualifiers: Osteopenia location: unspecified Qualified Code(s): M85.80 - Other specified disorders of bone density and structure, unspecified site (2) Lumbar scoliosis: Status: Acute Qualifiers: Scoliosis type: other secondary scoliosis Qualified Code(s): M41.56 - Other secondary scoliosis, lumbar region (3) Spondylolisthesis, lumbar region: Status: Acute Orders: Orders Hemoglobin A1c Today E11.9 - Type 2 diabetes mellitus without complications, M85.80 - Other specified disorders of bone density and structure, unspecified site Plan I again reviewed the CT scan with her in detail. I also again reviewed the x- rays and MRI done recently. She has lumbar scoliosis with concavity to the rightwith a compensatory small thoracic curve as well. She has L4-5 grade 1 spondylolisthesis with mild central dynamic instability as well. 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 It is unclear if the scoliosis is secondary to the L2 coronal wedging versus idiopathic. She has mild foraminal stenosis at L4-5 slightly worse on the left than the right. CT confirms the L2 wedging at L1-2 autofusion. There is vacuumphenomenon at L3-4 and L4-5. There is osteopenia suggestive from Hounsfield unit measurements in the 80s and 90s in the mid lumbar vertebra. I reviewed her recent DEXA scan which shows T-score -2.8 in the left hip and - 2.3 on the right hip suggestive of osteoporosis versus osteopenia. I again encouraged her to take calcium and vitamin D supplementation. I also requested that she reach out to Dr. Tobias regarding bisphosphonates or other treatment for osteoporosis. It is okay for her to start such treatment prior to surgery. I again went through options of treatment for her lower back symptoms which include continued nonoperative treatments versus surgery. Patient has had worsening pain affecting her quality of life. She wishes to proceed with surgical intervention. Patient has had multiple injections and prolonged course of nonsurgical treatment without significant help. She wishes to proceed with surgical intervention. I explained to her that the L1-2 autofusion is solid andis the apex of her scoliosis. In presence of osteopenia, and extensive scoliosis correction surgery may have a high risk of hardware related complications. I suggested targeting the L3-4 L4-5 with decompression fusion tohelp with her radicular and claudication symptoms. She may need cement augmentation intraoperatively for the pedicle screws depending on her DEXA scan findings. She will undergo medical clearance prior to surgery. She mentions that her last A1c was 7.4 done in May although reports not available. She will try to maintain her A1c below 7.5 until surgery and also beyond. We will repeat A1c preoperatively. Surgery will be L3-5 anterior posterior fusion with indirect decompression. Allrisk benefits and alternatives were discussed in detail. The risks include but are not limited to infection, bleeding, injury to nerves and vessels, bowel injury, vessel injury, hardware failure, pseudoarthrosis, nerve injury, foot drop, DVT, pulmonary embolism, adjacent segment degeneration, cardiopulmonary event, need for further surgeries. Patient agrees to proceed with surgery. Consent was signed. 09/18/23 9600 <Electronically signed by Walter Chang MD> Cosigner Signature (if applicable): CC: Dr. Walter Chang MD; Dr. Steff Tobias MD~ Signed [facility] Work Phone: [phone] 438-191702-24-2021 NotePatient Outreach ([facility]OVAM[facility]) DEANN DEGROOT ([id number]) 1945 F Date Time Provider Department 08/25/20 FLORA MARLEY During your visit today, we recorded the following information about you: Allergies As of Date: 08/25/2020 Noted Allergy Reaction AUGMENTIN (AMOXICILLIN-POT CLAVUL*06/20/2014 2 - Rash Date Reviewed: 06/23/2019 Reviewed by: Alma Rosa Clai - Fully Assessed Order(s):SARS-COVID VACCINE 1ST DOSE APPT [[id number]] Order #: [id number] FUTURE Prescriptions as of 08/25/2020 Sig: ATORVASTATIN 80 MG TABLET Take 80 mg by mouth once tammy* TEMAZEPAM 30 MG CAPSULE Take 30 mg by mouth at bedtim* METFORMIN 850 MG TABLET Take 850 mg by mouth twice da* SIMVASTATIN 80 MG TABLET Take 80 mg by mouth daily at * LISINOPRIL 20 MG TABLET Take 20 mg by mouth once tammy* PANTOPRAZOLE 40 MG TABLET,DEL* Take 40 mg by mouth once tammy* ESTRADIOL 0.01% (0.1 MG/GRAM)* Use 1 g vaginally once each w* MEDROXYPROGESTERONE ACETATE M* CODEINE 10 MG-GUAIFENESIN 100* Take 5-10 mL by mouth four ti* Patient not taking: Reported on 06/23/2019 BENZONATATE 200 MG CAPSULE Take 200 mg by mouth three ti* Patient not taking: Reported on 06/23/2019 Problem List As Of Date: 08/25/2020 (None) Letter Text Encounter Status:Closed by STONEY PRODUSER on 08/30/20[facility] Consult note Author Mariama Chahal [facility] September 20, 2023 10:33am Note Date/Time September 20, 2023 10: 33am [facility] Medical Records Department [address] [place] [id number] Counseling Note - Pharmacy 09/20/23 1033 MR#: [id number] Acct: [id number] Name: DEANN DEGROOT Rep #:[id number] 6 : 1945 78 From: Mariama Chahal PCP: Dr. Steff Tobias MD Status:ADM I N Y Location: [place] [address] Pharmacy [facility] has performed discharge medication reconciliation and counseling for this patient. The patient's discharge medication list was reviewed for discrepancies and discrepancies were resolved. The patient was counseled on the following discharge medications and changes in medications for homegoing were reviewed. 1. TYLENOL 2. MOBIC 3. OXYCODONE 4. ROBAXIN The Reason for Use, instructions for use, and potential side effects were reviewed for all new medications. The patient's questions regarding all of their medications were answered. The patient was able to verbally demonstrate an understanding of their dischargemedications. Medications at Discharge Home Medications pantoprazole 40 mg tablet,delayed release 40 mg PO DAILY GERD 05/06/14 simvastatin 80 mg tablet 80 mg PO QHS CHOLESTEROL 05/06/14 estradiol 1 mg tablet 1 mg PO DAILY HORMONE 06/01/23 metformin 500 mg tablet 1,000 mg PO BID DIABETES 06/01/23 valsartan 320 mg tablet 320 mg PO DAILY BP 06/01/23 medroxyprogesterone 5 mg tablet 5 mg PO DAILY HOT FLASHES 07/19/23 pioglitazone 30 mg tablet (Actos) 30 mg PO DAILY DIABETES 09/04/23 acetaminophen 500 mg tablet 500 mg PO Q6H 7 days #28 tabs 09/20/23 meloxicam 15 mg tablet 15 mg PO DAILY 30 days #30 tabs 09/20/23 methocarbamol 500 mg tablet 750 mg (1.5 x 500 mg) PO Q8H PRN Pain/spasms 7 days #28 tabs 09/20/23 oxycodone 5 mg tablet 2.5 - 5 mg (0.5 - 1 x 5 mg) PO Q6H PRN pain 7 days #28 tabs 09/20/23 sennosides 8.6 mg-docusate sodium 50 mg tablet (Stool Softener-Stimulant Laxative) 2 tab PO BID PRN constipation 7 days #28 tabs 09/20/23 09/20/23 1033 <Electronically signed by Mariama Chahal > Date _ Mariama Chahal Cosigner Signature (if applicable): Date CC: ~ Signed [facility] Work Phone: Evaluation noteNo assessment information available [facility] Work Phone: Evaluation note* Diagnosis Onset Date Resolution Status Hormone replacement therapy (HRT) acute Urinary incontinence, mixed acute Encounter for routine gynecological examination noneactive Hormone replacement therapy (HRT) acute [facility] Work Phone: Evaluation note* Diagnosis Onset Date Resolution Status Hormone replacement therapy (HRT) acute Urinary incontinence, mixed acute Encounter for routine gynecological examination noneactive Hormone replacement therapy (HRT) acute Essential hypertension acute Hormone replacement therapy (HRT) acute [facility] Work Phone: Evaluation note* Diagnosis Onset Date Resolution Status Lumbar scoliosis acute Spondylolisthesis, lumbar region acute [facility] Work Phone: Evaluation note* Diagnosis Onset Date Resolution Status Lumbar scoliosis acute Spondylolisthesis, lumbar region acute Lumbar scoliosis acute Osteopenia acute Spondylolisthesis, lumbar region acute [facility] Work Phone: Evaluation note* Diagnosis Onset Date Resolution Status Lumbar scoliosis acute Spondylolisthesis, lumbar region acute Lumbar scoliosis acute Osteopenia acute Spondylolisthesis, lumbar region acute Lumbar scoliosis acute Osteopenia acute Spondylolisthesis, lumbar region acute Diabetes mellitus, type 2 ac [place] Lumbar scoliosis acute Status post lumbar spinal fusion acute Hypertension chronic [facility] Work Phone: Reason for referral (narrative)No reason for referral information availableReg[facility] Work Phone: Summary Purpose Family History No Family History Records FoundNo Family History Records FoundNo Family History Records Found Advance Directives No Advanced Directives Records Found Advance Directive Response Recorded Date/ Time Advance Directives Yes May 06, 2014 4:45pm Living Will Yes May 06 4:45pm Power of Dope Weigh Operator Yes May 06, 2014 4:45pm Advance Directive Response Recorded Date/ Time Advance Directives Yes May 06, 2014 3:45pm Living Will Yes May 06 3:45pm Power of Dope Weigh Operator Yes May 06, 2014 3:45pm Advance Directive Response Recorded Date/ Time Advance Directives Yes May 10:16am Living Will Yes May 30, 2 023 10:16am Power of Dope Weigh Operator Yes May 30, 2023 10:16am Advance Directive Response Recorded Date/ Time Advance Directives Yes May 10:16am Living Will Yes July 19 11:15am Power of Dope Weigh Operator Yes July 19, 2023 11:15am Advance Directive Response Recorded Date/ Time Name of Medical Power of Dope Weigh Operator Vanessa Wilkes September 18, 2023 3:59pm Advance Directives Yes May 11:16am Living Will Yes September 18, 2023 3:59pm Power of Dope Weigh Operator Yes September 17 3:59pm Advance Directive Response Recorded Date/ Time Living Will Yes September 18, 2023 3:59pm Power of Dope Weigh Operator Yes September 17 3:59pm Advance Directives Yes May 11:16am Advance Directive Response Recorded Date/ Time Living Will Yes September 18, 2023 3:59pm Do you have a Healthcare Power of Dope Weigh Operator? Yes September 18, 2023 3:59pm Advance Directives Yes May 11:16am Chief Complaint and Reason for Visit Chief Complaint CKD3 Chief Complaint Annual (BOX FEEDER) DISCUSS BP XRAY ON LUMBAR LUMBAR RAD Reason for Visit Hormone replacement therapy (HRT) Urinary incontinence, mixed Encounter for routine gynecological examination Hormone replacement therapy (HRT) Chief Complaint Annual (BOX FEEDER) DISCUSS BP XRAY ON LUMBAR LUMBAR RAD 2 MO FU INT LABS Reason for Visit Hormone replacement therapy (HRT) Urinary incontinence, mixed Encounter for routine gynecological examination Hormone replacement therapy (HRT) Essential hypertension Hormone replacement therapy (HRT) Chief Complaint INT LABS LUMBAR SPINE room 2 Reason for Visit Lumbar scoliosis Spondylolisthesis, lumbar region Chief Complaint LUMBAR SPINE room 2 LUMBAR SCOLIOSIS LUMBAR SPINE Reason for Visit Lumbar scoliosis Spondylolisthesis, lumbar region Lumbar scoliosis Osteopenia Spondylolisthesis, lumbar region Chief Complaint LUMBAR SPINE room 2 LUMBAR SCOLIOSIS LUMBAR SPINE VIRAL SYMPTOMS Reason for Visit Lumbar scoliosis Spondylolisthesis, lumbar region Lumbar scoliosis Osteopenia Spondylolisthesis, lumbar region Chief Complaint LUMBAR SPINE room 2 LUMBAR SCOLIOSIS LUMBAR SPINE VIRAL SYMPTOMS PREOP screening lumbar spine ERAS Lumbar anterior and posterior ERAS Lumbar anterior and posterior SOURCE FOR EMPLOYEE EXPOSURE ERAS Lumbar anterior and posterior ERAS Lumbar anterior and posterior ERAS Lumbar anterior and posterior ERAS Lumbar anterior and posterior Reason for Visit Lumbar scoliosis Spondylolisthesis, lumbar region Lumbar scoliosis Osteopenia Spondylolisthesis, lumbar region Lumbar scoliosis Osteopenia Spondylolisthesis, lumbar region Diabetes mellitus, type 2 Lumbar scoliosis Status post lumbar spinal fusion Hypertension Chief Complaint Admit Date STAT BL LOWER EXT DVT / I26.99 Other pul monary emb September 03, 2024 10:20am LUMBAR SPINE September 12, 2024 11: 23am room 4 September 12, 2024 11: 35am Reason for Visit Admit Date Status post lumbar spinal fusion August 302024 11:23am Chief Complaint Admit Date STAT BL LOWER EXT DVT / I26.99 Other pul monary emb September 03, 2024 10:20am LUMBAR SPINE September 12, 2024 11: 23am room 4 September 12, 2024 11: 35am LT LOWER LEG, SWELLING, HX OF DVT October 16, 2024 9:05am LUNG November 11, 2024 7:04a m I82.402 Acute embolism and thrombosis of unspecif November 14, 2024 10:04am Additional Source Comments INFORMATION SOURCE (unrecogn ized section and content) DATE CREATED AUTHOR 08/11/2021 [facility] DATE CREATED AUTHOR AUTHOR'S ORGANIZ ATION 10/25/2023 [facility] DATE CREATED AUTHOR AUTHOR'S ORGANIZ ATION 12/01/2024 [facility] Goals (unrecognized section and content) Goals may be documented in a n alternate sectionGoals may be documented in an alternate sectionGoals may be documented in an alternate sectionGoals may be documented in an alternate sectionGoals may be documented in an alternate sectionGoals may be documented in an alternate sectionGoals may be documented in an alternate sectionGoals may be documented in an alternate sectionGoals may be documented in an alternate sectionGoals may be documented in an alternate sectionGoals may be documented in an alternate sectionGoals may be documented in an alternate sectionGoals may be documented in an alternate section Care Teams (unrecognized sec tion and content) Team Status: Active Member Role Status Dates Dr. Steff Tobias MD Family Provider Active Dr. Steff Tobias MD Primary Care Provider Active Team Status: Inactive Member Role Status Dates Dr. Steff Tobias MD Primary Care Provider, Referring Provider Active Brunilda Loyd CNM Attending Provider Active Team Status: Active Member Role Status Dates Dr. Steff Tobias MD Primary Care Provider, Attending Provider Active Team Status: Inactive Member Role Status Dates Dr. Steff Tobias MD Primary Care Provider Active Dr. Lisa Vu MD Attending Provider, Referring Pr ovider Active Team Status: Active Member Role Status Dates Dr. Steff Tobias MD Primary Care Provider Active Dr. Lisa Vu MD Attending Provider, Referring Pr ovider Active Team Status: Inactive Member Role Status Dates Dr. Steff Tobias MD Primary Care Provider, Attending Provider Active Team Status: Inactive Member Role Status Dates Dr. Steff Tobias MD Primary Care Provider Active Brunilda Loyd CNM Attending Provider, Referring Pr ovider Active Team Status: Inactive Member Role Status Dates Dr. Steff Tobias MD Primary Care Provider, Referring Provider Active Dr. Walter Chang MD Attending Provider Active Team Status: Inactive Member Role Status Dates Dr. Steff Tobias MD Primary Care Provider Active Dr. Manuel Peguero MD Attending Provider Active Team Status: Inactive Member Role Status Dates Dr. Steff Tobias MD Primary Care Provider Active Dr. Walter Chang MD Attending Provider, Referring Pr ovider Active Team Status: Inactive Member Role Status Dates Dr. Steff Tobias MD Primary Care Provi shelli, Attending Provider, Referring Provider Active Team Status: Active Member Role Status Dates Dr. Steff Tobias MD Primary Care Provider Active Dr. Los Peraza MD Attending Provider Active Dr. Walter Chang MD Referring Provider Active Team Status: Active Member Role Status Dates Dr. Steff Tobias MD Primary Care Provider Active Dr. Walter Chang MD Admit Provider, At tending Provider, Referring Provider, Other Provider Active Dr. Margarito Figueroa MD Other Provider Active Team Status: Active Member Role Status Dates Dr. Steff Tobias MD Primary Care Provider Active Dr. Walter Chang MD Admit Provider, Re ferring Provider, Other Provider Active Dr. Margarito Figueroa MD Other Provider Active Dr. Lenin Greer DO Other Provider Active Dr. Margarito Aleman MD Attending Provider Active Team Status: Active Member Role Status Dates Dr. Steff Tobias MD Primary Care Provider Active Dr. Walter Chang MD Admit Provider, Re ferring Provider, Other Provider Active Dr. Margarito Figueroa MD Other Provider Active Dr. Lenin Greer DO Attending Provider, Other Provider Active Team Status: Active Member Role Status Dates Dr. Steff Tobias MD Primary Care Provider Active Dr. Walter Chang MD Admit Provider, At tending Provider, Referring Provider, Other Provider Active Dr. Margarito Figueroa MD Other Provider Active Dr. Margarito Shook DO Other Provider Active Team Status: Inactive Member Role Status Dates Dr. Steff Tobias MD Primary Care Provider Active Dr. Walter Chang MD Admit Provider, At tending Provider, Referring Provider Active Dr. Margarito Figueroa MD Other Provider Active Dr. Margarito Shook DO Other Provider Active Team Status: Active Member Role Status Dates Dr. Steff Tobias MD Primary Care Provider Active Ed Physician Provider Attending Provider Active Team Status: Active Member Role Status Dates Dr. Steff Tobias MD Primary Care Provider Active Team Status: Inactive Member Role Status Dates Dr. Steff Tobias MD Primary Care Provider Active Start: June 04, 2024 End: June 04, 2024 Dr. Steff Tobias MD Attending Provider Active Start: June 04, 2024 End: June 04, 2024 Team Status: Inactive Member Role Status Dates Dr. Steff Tobias MD Primary Care Provider Active Start: September 02, 2024 End: September 02, 2024 Dr. Steff Tobias MD Attending Provider Active Start: September 02, 2024 End: September 02, 2024 Team Status: Active Member Role Status Dates Dr. Steff Tobias MD Primary Care Provider Active Start: September 03, 2024 Dr. Steff Tobias MD Attending Provider Active Start: September 03, 2024 Dr. Steff Tobias MD Referring Provider Active Start: September 03, 2024 Team Status: Active Member Role Status Dates Dr. Steff Tobias MD Primary Care Provider Active Start: September 03, 2024 Dr. Steff Tobias MD Referring Provider Active Start: September 03, 2024 Dr. Margarito Aleman MD Attending Provider Active S tart: September 03, 2024 Team Status: Active Member Role Status Dates Dr. Steff Tobias MD Primary Care Provider Active Start: September 04, 2024 Dr. Steff Tobias MD Attending Provider Active Start: September 04, 2024 Dr. Steff Tobias MD Referring Provider Active Start: September 04, 2024 Team Status: Inactive Member Role Status Dates Dr. Steff Tobias MD Primary Care Provider Active Start: September 12, 2024 End: September 12, 2024 Dr. Steff Tobias MD Referring Provider Active Start: September 12, 2024 End: September 12, 2024 Dr. Walter Chang MD Attending Provider Active Start: September 12, 2024 End: September 12, 2024 Team Status: Inactive Member Role Status Dates Dr. Steff Tobias MD Primary Care Provider Active Start: September 12, 2024 End: September 12, 2024 Dr. Manuel Peguero MD Attending Provider Active S tart: September 12, 2024 End: September 12, 2024 Team Status: Inactive Member Role Status Dates Dr. Steff Tobias MD Primary Care Provider Active Start: September 03, 2024 End: September 03, 2024 Dr. Steff Tobias MD Attending Provider Active Start: September 03, 2024 End: September 03, 2024 Dr. Steff Tobias MD Referring Provider Active Start: September 03, 2024 End: September 03, 2024 Team Status: Inactive Member Role Status Dates Dr. Steff Tobias MD Primary Care Provider Active Start: September 04, 2024 End: September 04, 2024 Dr. Steff Tobias MD Attending Provider Active Start: September 04, 2024 End: September 04, 2024 Dr. Steff Tobias MD Referring Provider Active Start: September 04, 2024 End: September 04, 2024 Team Status: Inactive Member Role Status Dates Dr. Steff Tobias MD Primary Care Provider Active Start: October 16, 2024 End: October 16, 2024 Dr. Steff Tobias MD Attending Provider Active Start: October 16, 2024 End: October 16, 2024 Dr. Steff Tobias MD Referring Provider Active Start: October 16, 2024 End: October 16, 2024 Team Status: Active Member Role Status Dates Dr. Stfef Tobias MD Primary Care Provider Active Start: October 16, 2024 Dr. Steff Tobias MD Referring Provider Active Start: October 16, 2024 Dr. Margarito Aleman MD Attending Provider Active S tart: October 16, 2024 Team Status: Inactive Member Role Status Dates Dr. Steff Tobias MD Primary Care Provider Active Start: November 11, 2024 End: November 11, 2024 Dr. Steff Tobias MD Attending Provider Active Start: November 11, 2024 End: November 11, 2024 Dr. Steff Tobias MD Referring Provider Active Start: November 11, 2024 End: November 11, 2024 Team Status: Active Member Role Status Dates Dr. Steff Tobias MD Primary Care Provider Active Start: November 14, 2024 Dr. Steff Tobias MD Attending Provider Active Start: November 14, 2024 Dr. Steff Tobias MD Referring Provider Active Start: November 14, 2024 Team Status: Inactive Member Role Status Dates Dr. Steff Tobias MD Primary Care Provider Active Start: November 14, 2024 End: November 14, 2024 Dr. Steff Tobias MD Attending Provider Active Start: November 14, 2024 End: November 14, 2024 Dr. Steff Tobias MD Referring Provider Active Start: November 14, 2024 End: November 14, 2024 Team Status: Active Member Role Status Dates Dr. Steff Tobias MD Primary Care Provider Active Start: November 14, 2024 Dr. Margarito Aleman MD Attending Provider Active S tart: November 14, 2024 FOR RECORDS PERTAINING TO PATIENTS WHO ARE OR HAVE BEEN ENROLLED IN A CHEMICAL DEPENDENCY/SUBSTANCEABUSE PROGRAM, SOME INFORMATION MAY BE OMITTED. This clinical summary was aggregated from multiple sources. Caution should be exercised in using it in the provision of clinical care. This summary normalizes information from multiple sources, and as a consequence, information in this document may materially change the coding, format and clinical context of patient data. In addition, data may be omitted in some cases. CLINICAL DECISIONS SHOULD BE BASED ON THE PRIMARY CLINICAL RECORDS. [facility] [employer] [facility]. provides no warranty or guarantee of the accuracy or completeness of information in this document.
== END | disposition home or self-care (01) ==
LOC: LAB 10:40
PROVIDERS: PCP Family Medicine Geriatric Medicine; Referring Provider Family Medicine Geriatric Medicine; Visit Provider Family Medicine Geriatric Medicine
DX: E11.65 Type 2 diabetes mellitus with hyperglycemia (principal); E55.9 Vitamin D deficiency, unspecified; I10 Essential (primary) hypertension
CPT/HCPCS: 36415; 80053; 82306; 84443; 85025

== ENCOUNTER → 2025-06-05 | Outpatient (CLI) | payer MEDICARE, OTHER, SELFPAY ==
[2025-06-05 13:01] LABS: Hematocrit 39.5 % (37-47); Hemoglobin 12.4 g/dL (12.0-15.0); Immature Granulocytes Count 0.020 X10^3/uL (0.0-0.0); Mean Corp Hgb Conc 31.4 g/dL (32-36); Mean Corpuscular Volume 79.2 fL (81-99); Mean Platelet Vol. 9.6 fl (6.2-12.0); NRBC Flagged by Analyzer 0 % (0-5); Platelet Count 249 K/mm3 (150-450); RBC Distribution Width CV 15.5 % (11.6-14.6); RBC Distribution Width SD 43.8 fl (35.1-43.9); Red Blood Count 4.99 M/mm3 (4.2-5.4); White Blood Count 6.6 K/mm3 (4.4-11.0)
[2025-06-05 13:57] LABS: AST(SGOT) 20 U/L (<=31); Alanine Aminotransfer ALT/SGPT 7 U/L (<=34); Albumin, Serum 4.3 g/dL (3.4-4.8); Alkaline Phosphatase 124 U/L (35-104); Anion Gap 14 (5-15); BUN 20 mg/dL (4-19); BUN/Creat Ratio 18.7 RATIO (10-20); Calcium,Total 10.2 mg/dL (7.6-11.0); Carbon Dioxide 24.0 mmol/L (21.0-32.0); Chloride 103 mmol/L (98-108); Globulin 3.2 g/dL (2.2-4.2); Glucose 183 mg/dL (70-99); Potassium 4.4 mmol/L (3.3-5.1); Vitamin D,25 Hydroxy 55.7 ng/mL (30-100)
== END | disposition home or self-care (01) ==
LOC: LAB 11:41
PROVIDERS: PCP Family Medicine Geriatric Medicine; Referring Provider Family Medicine Geriatric Medicine; Visit Provider Family Medicine Geriatric Medicine
DX: E11.65 Type 2 diabetes mellitus with hyperglycemia (principal); E55.9 Vitamin D deficiency, unspecified; E78.5 Hyperlipidemia, unspecified; I10 Essential (primary) hypertension
CPT/HCPCS: 36415; 80053; 82306; 84443; 85025